=== PATIENT | male | born 1945 | race Hispanic/Latino ===

== ENCOUNTER 2017-09-01 06:05 | Emergency (ER) | payer MEDICARE, MEDICAID ==
[2017-09-01 06:42] LABS: #Basophils 0.1 thou/uL (0.0-0.2); #Eosinphils 0.2 thou/uL (0.0-0.7); #Lymphocytes 2.8 thou/uL (1.20-3.40); #Monocytes 0.4 thou/uL (0.11-0.59); #Neutrophils 4.2 thou/uL (1.40-6.50); %Basophils 0.9 % (0.0-1.0); %Eosinophils 2.1 % (0.0-10.0); %Lymphocytes 37.1 % (21.0-51.0); %Monocytes 4.8 % (0.0-10.0); Hematocrit 37.8 % (42.0-52.0); Mean Platelet Volume 6.5 fL (7.4-10.4); Red Blood Cell (RBC) Count 4.03 mill/uL (4.70-6.10); White Blood Cell (WBC) Count 7.6 thou/uL (4.8-10.8)
[2017-09-01 07:09] LABS: ALT (SGPT) 31 U/L (8-55); AST (SGOT) 25 U/L (5-34); Alkaline Phosphatase 128 U/L (40-150); Anion Gap 11 mmol/L (10-20); BUN (Urea Nitrogen) 32 mg/dL (8.4-25.7); Bilirubin, Total 0.3 mg/dL (0.2-1.2); Calc. Creatinine Clearance 0 mL/min (70-130); Calcium 8.4 mg/dL (7.8-10.44); Carbon Dioxide 24 mmol/L (23-31); Chloride 104 mmol/L (98-107); Estimated GFR-MDRD 67; Globulin 3.7 g/dL (2.4-3.5); Protein, Total 7.7 g/dL (5.8-8.1)
[2017-09-01 07:10] LABS: Troponin I Less than 0.010 ng/mL (< 0.028)
--- NOTE | 2017-09-01 08:00 | RAD ---
PORTABLE CHEST 1 VIEW: DATE: 09/01/17. TIME: 6:05 a.m. HISTORY: Fall, right shoulder pain, dizziness. FINDINGS: Comparison is made with the exam of 04/10/14. Changes of median sternotomy and large hiatal hernia a re again seen. The lungs are well expanded with chronic changes. No lobar consolidation, pneumotho rax, or pleural effusions are seen. There are changes of vertebroplasty in the upper lumbar spine. IMPRESSION: No acute process. POS: [facility]
--- NOTE | 2017-09-01 08:08 | CT ---
HEAD CT WITHOUT CONTRAST: Date: 09-01-17 Comparison: 04-12-16 History: Fall, pain, head trauma with right occipital hematoma. Technique: Serial axial CT imaging at 5 mm intervals from vertex through skull base without contrast. FINDINGS: There is mild diffuse cerebral volume loss with associated prominence of the CSF containing spaces. There is no intracranial hemorrhage, midline shift, or mass effect. There is a focal area of scalp swelling in the parietooccipital region on the right. No associated ca lvarial fracture. Imaged paranasal sinuses and mastoid air cells are unremarkable. IMPRESSION: Small focal area of scalp swelling in the right occipital region. No associated intracranial hemorrha ge or calvarial fracture noted. POS: [facility]
--- NOTE | 2017-09-01 08:12 | CT ---
CERVICAL SPINE CT WITHOUT CONTRAST: Date: 09-01-17 Comparison: 02-26-12 History: Fall, trauma, pain. Technique: Serial axial CT imaging at 2.5 mm intervals obtained from skull base through lung apices. Coronal and sagittal reformatted imaging obtained. FINDINGS: The C1 ring is intact. The occipital condyles, C1-2 articulation, dense, atlantoaxial interspace, and cervicothoracic juncti on demonstrates no acute findings. There is extensive bilateral laminectomy change involving the C3 through C7 vertebral bodies. There is no significant anterolisthesis or retrolisthesis noted within the cervical spine. No prevert ebral soft tissue swelling noted. Disc space narrowing with degenerative endplate change and anterior osteophyte formation noted from t he C3-4 level through the C6-7 level. There is no displaced fracture or evidence of dislocation seen. Increased linear interstitial densiti es are noted in bilateral lung apices. There is a tiny nodule in the right lung apex, unchanged since the 2012 exam. Incompletely imaged midline sternotomy wires noted. There is atherosclerotic calcific ation involving the distal CCA/proximal ICA on the right. There are post-operative clips within the n alanis on the left. There is prominent facet and uncal vertebral osteophyte formation, left greater than right from C3-4 through C6-7. IMPRESSION: Multilevel post-operative and degenerative change as described above. No acute osseous abnormality. POS: [facility]
--- NOTE | 2017-09-01 08:13 | RAD ---
THREE VIEWS RIGHT SHOULDER: Date: 09-01-17 Comparison: None. History: Fall, trauma, pain. FINDINGS: There are midline sternotomy wires present. There is no widening of the AC or CC interspace. No displ aced fracture or dislocation seen. IMPRESSION: No acute osseous abnormality. POS: [facility]
[2017-09-01] MEDS ORDERED: Albuterol Sulfate 2.5 mg/3 ml Neb ONE (08:22)
[2017-09-01] MEDS ORDERED: Ketorolac Tromethamine 30 MG/ML VIAL ONE (08:32)
== END 2017-09-01 09:31 | disposition home or self-care (01) ==
LOC: ERS 06:05
DX: S00.03XA Contusion of scalp, initial encounter (principal); M25.511 Pain in right shoulder; M54.2 Cervicalgia; I10 Essential (primary) hypertension; J44.9 Chronic obstructive pulmonary disease, unspecified; I25.2 Old myocardial infarction; F32.9 Major depressive disorder, single episode, unspecified; F17.210 Nicotine dependence, cigarettes, uncomplicated; W18.30XA Fall on same level, unspecified, initial encounter
CPT/HCPCS: 36415; 70450; 71010; 72125; 80053; 82553; 84484; 85025; 93005; 94640; 96374; 99406; J1885; J7611

== ENCOUNTER 2017-10-15 08:27 | Outpatient (CLI) | payer MEDICARE, MEDICAID | END 2017-10-15 08:28 | disposition home or self-care (01) | LOC: BICRAD 08:27 | PROVIDERS: ATTEND Specialist | DX: M47.812 Spondylosis without myelopathy or radiculopathy, cervical region (principal); M50.30 Other cervical disc degeneration, unspecified cervical region; I77.89 Other specified disorders of arteries and arterioles | CPT/HCPCS: 72050 ==

== ENCOUNTER 2017-12-03 02:31 | Inpatient (IN) | payer MEDICARE, MEDICAID ==
[2017-12-03] MEDS ORDERED: Cefepime 2 GM/10 ML SYR ONE (03:07)
[2017-12-03 03:09] LABS: #Lymphocytes 1.9 thou/uL (1.20-3.40); #Monocytes 0.1 thou/uL (0.11-0.59); #Neutrophils 6.4 thou/uL (1.40-6.50); %Basophils 0.3 % (0.0-1.0); %Eosinophils 0.3 % (0.0-10.0); %Lymphocytes 22.7 % (21.0-51.0); %Monocytes 0.9 % (0.0-10.0); %Neutrophils 75.6 % (42.0-75.0); Hemoglobin 11.7 g/dL (14.0-18.0); Mean Corpuscular HGB CONC 33.4 g/dL (32.0-36.0); Mean Corpuscular Hemoglobin 32.8 pg (27.0-31.0); Mean Corpuscular Volume 98.2 fl (80.0-94.0); Mean Platelet Volume 7.3 fL (7.4-10.4); Platelet Count 164 thou/uL (130-400); RBC Distribution Width 14.3 % (11.5-14.5); Red Blood Cell (RBC) Count 3.56 mill/uL (4.70-6.10); White Blood Cell (WBC) Count 8.5 thou/uL (4.8-10.8)
[2017-12-03 03:33] LABS: ALT (SGPT) 26 U/L (8-55); AST (SGOT) 33 U/L (5-34); Albumin 3.7 g/dL (3.4-4.8); Alkaline Phosphatase 127 U/L (40-150); Anion Gap 15 mmol/L (10-20); BUN (Urea Nitrogen) 25 mg/dL (8.4-25.7); Bilirubin, Total 1.5 mg/dL (0.2-1.2); Calc. Creatinine Clearance 0 mL/min (70-130); Calcium 8.9 mg/dL (7.8-10.44); Carbon Dioxide 19 mmol/L (23-31); Chloride 103 mmol/L (98-107); Estimated GFR-MDRD 59; Globulin 3.6 g/dL (2.4-3.5); Glucose 186 mg/dL (80-115); Protein, Total 7.3 g/dL (5.8-8.1); Sodium 133 mmol/L (136-145)
[2017-12-03 03:53] LABS: Bilirubin Negative (Negative); Blood, Urine Moderate (Negative); Clarity TURBID (Clear); Glucose, Urine (Dipstick) Negative (Negative); Leukocyte Large (Negative); Nitrite Positive (Negative); Protein, Urine (Dipstick) 100 mg/dL (Neg-Trace); Specific Gravity, Urine 1.017 (1.002-1.036)
[2017-12-03 03:56] LABS: Bacteria/HPF 4+ HPF (None Seen); Hyaline Casts/LPF 0-3 HYALINE CAST LPF (0-3 Hyaline); Squamous Epithelial None Seen HPF (0-3); Yeast-AUWi Flag 22.7 (0-25.0)
[2017-12-03] MEDS ORDERED: Vancomycin HCl 1.5 GM in Sodium Chloride 0.9% 250 ML 300 ML IVPB SCH (04:00)
[2017-12-03 04:02] LABS: Actual Bicarbonate (HCO3a) 21.2 mEq/L (22-26); Base Excess (BEa) -2.6 mEq/L (0 (+/-) 2.5); CO2 Tension 33.3 mmHg (35.0-45.0); Hemoglobin (Hb) 10.8 g/dL (14.0-18.0); O2 Tension (PaO2) 115.8 mmHg (80.0-100.0); pH, Arterial 7.42 (7.35-7.45)
[2017-12-03 04:03] LABS: Analyzer IN Cardio ER; Calcium, Ionized 1.1 mmol/L (1.12-1.30); Puncture Site RRA
[2017-12-03 04:04] LABS: ALV-art Gradient 70.735 (0-20)
[2017-12-03 04:09] LABS: Legionella Urinary Ag Negative (Negative); Strep pneumo Urine Ag NEGATIVE (NEGATIVE)
[2017-12-03 04:18] LABS: CKMB 0.4 ng/mL (0-6.6); Troponin I Less than 0.010 ng/mL (< 0.028)
[2017-12-03 06:35] VITALS: BMI 22.6
[2017-12-03] MEDS ORDERED: Ondansetron HCl/PF 4 MG/2 ML Vial IVP PRN (06:45)
[2017-12-03] MEDS ORDERED: Acetaminophen 325 MG TAB PO PRN (06:45)
[2017-12-03] MEDS ORDERED: Ondansetron ODT 4 MG TAB SL PRN (06:45)
[2017-12-03] MEDS ORDERED: Sodium Chloride 0.9% 1,000 ML IV SCH ×2 (06:45→07:00)
[2017-12-03] MEDS ORDERED: HYDROcodone/Acetaminophen 5/325 mg Tablet PO PRN ×2 (06:45)
[2017-12-03 07:19] LABS: Lactic Acid 4.2 mmol/L (0.5-2.2)
--- NOTE | 2017-12-03 07:56 | RAD ---
PORTABLE CHEST 1 VIEW: Date: 12/03/17 Time: 0309 hours HISTORY: Shortness of breath. FINDINGS/IMPRESSION: Comparison made with exam dated 09/01/17. Large hiatal hernia and changes of median sternotomy are again seen. The heart size is stable. Chroni c changes are seen in the lung buitrago bilaterally with suggestion of superimposed mild pulmonary vasc ular congestion. No lobar consolidation, pneumothoraces, or large effusions are seen. POS: [facility]
[2017-12-03] MEDS ORDERED: Piperacillin/Tazobactam 3.375 GM in Sodium Chloride 0.9% 100 ML IVPB SCH (08:00)
[2017-12-03] MEDS ORDERED: Sodium Chloride 0.9% 500 ML IV SCH (08:15)
[2017-12-03] MEDS ORDERED: Cefepime 2 GM in Sodium Chloride 0.9% 100 ML IVPB SCH ×2 (09:00→15:30)
[2017-12-03] MEDS: Sodium Chloride 0.9% 1,000 ML IV SCH ×3 (09:06→17:37)
[2017-12-03] MEDS: Enoxaparin Sodium 30 MG/0.3 ML SYRINGE SC SCH (09:36)
[2017-12-03 09:48] LABS: Troponin I 0.018 ng/mL (< 0.028)
[2017-12-03] MEDS ORDERED: Cefepime 1 GM, Admixture Fee 1 EACH in Sterile Water 10 ML SLOW IVP SCH (10:00)
--- NOTE | 2017-12-03 10:53 | HP-2 ---
CODE STATUS: FULL. PRIMARY CARE PHYSICIAN: Dr. Raúl Barrera ATTENDING: Dr. Aliyah Boles RESIDENT: Dr. Lesa Gore CHIEF COMPLAINT: Shortness of breath. HISTORY OF PRESENT ILLNESS: This is a 72-year-old male with past medical history of pulmonary fibrosis, coronary artery disease status post CABG, current every day smoker who arrived by EMS with a chief complaint of dyspnea. The patient states that the dyspnea has been progressively worsening and associated with weakness. Yesterday he did start to experience some chills. He denies any rash, nausea, vomiting, diarrhea. He does endorse pain with urination and suprapubic tenderness. The patient does state he feels more weak today with worsening respiratory symptoms. The patient denied any chest pain or lower extremity swelling. In the Emergency Department, he was found to be tachycardic and tachypneic. He was given 2 liter normal saline bolus as well as cefepime and vancomycin. PAST MEDICAL HISTORY: 1. Coronary artery disease, status post 5-vessel CABG in 2000. 2. Benign prostatic hypertrophy. 3. Pulmonary fibrosis. 4. Chronic diastolic heart failure. 5. Tobacco dependence. 6. Essential hypertension. 7. Hyperlipidemia. 8. Chronic pain syndrome. 9. Depression. 10. Esophageal hiatal hernia. PAST SURGICAL HISTORY: 1. Five-vessel CABG in 2000. 2. Cholecystectomy. ALLERGIES: No known drug allergies. MEDICATIONS: 1. Amitriptyline 50 mg oral daily. 2. Albuterol 2 inhalations by mouth every 8 hours as needed. 3. Symbicort 80/4.5 mcg inhalation aerosol 1 inhalation by mouth twice daily. 4. Atorvastatin calcium 80 mg oral daily. 5. Aspirin low dose. 6. Hydroxyzine 50 mg oral at bedtime. 7. Metoprolol succinate ER 25 mg oral tablet extended release, take half tablet by mouth daily. 8. Tamsulosin 0.4 mg oral daily. 9. Nitrostat 0.4 mg sublingual tablet every 5 minutes as needed for chest pain. 10. Albuterol sulfate 0.083 inhalation nebulized inhalation solution. 11. Acetaminophen with codeine #3 300-30 mg q.4-6h. as needed. 12. Tizanidine 4 mg oral tablet every 8 hours as needed for muscle spasm. 13. Tramadol 50 mg oral tablet every 6 hours as needed. 14. Lexapro 20 mg oral take 2 tablets by mouth daily. FAMILY HISTORY: Noncontributory. SOCIAL HISTORY: The patient does smoke a pack per day every 3 days. He has been doing this for over 50 years. He denies any alcohol or drug use. REVIEW OF SYSTEMS: A 12 point review of systems was performed. All were negative except as listed in the HPI and as indicated below. The patient did also endorse a sore throat. PHYSICAL EXAMINATION: VITAL SIGNS: Blood pressure 126/59, pulse 122, respiratory rate 28, T-max 98.1 , pulse ox 99% on 2 liters. Current weight 62 kilograms. GENERAL: The patient is alert and oriented x3, no acute distress. Well- developed, not well-nourished, appropriately interactive. He did appear malnourished. EYES: Pupils equally round, reactive to light and accommodation. Extraocular muscles intact. ENT: Nasal mucosa within normal limits. NECK: Supple. CARDIOVASCULAR: Regular rate and rhythm. No murmurs, although exam was difficult due to distant heart sounds. Radial and pedal pulses 2+. RESPIRATORY: Normal effort, no retractions. The patient did have crackles diffusely throughout with some high pitched expiratory wheezing, worse on the left. SKIN: Warm and dry. No cyanosis or lesions. ABDOMEN: Soft, tender to palpation diffusely, but worse with palpation in the suprapubic region. Bowel sounds are positive in all 4 quadrants. There are no masses or distention. EXTREMITIES: No clubbing, cyanosis or edema. MUSCULOSKELETAL: Structure within normal limits. NEUROLOGIC: No focal deficits. GCS 15. PSYCHIATRIC: Appropriate. LABORATORY DATA: 1. CBC reveals a white blood cell count 8.5, hemoglobin 11.2, hematocrit 35.0, platelets 154. 2. CMP reveals sodium 133, potassium 4.0, chloride 103, bicarbonate 19, BUN 25, creatinine 1.20, glucose 186, calcium 8.9, total protein 7.3, albumin 3.7, total bilirubin 1.5, alkaline phosphatase 127, AST 33, ALT 26. 3. CK-MB 0.4, troponin less than 0.010. 4. Lactic acid 4. 5. BNP 35. 6. ABG; 7.4 pH, CO2 of 33.3 and an O2 of 115.8. 7. Urine legionella pneumobilia antigen negative. 8. Urine strep pneumo antigen negative. 9. Influenza negative. IMAGING: Chest x-ray shows chronic pulmonary changes. There is a large hiatal hernia and changes of the median sternotomy are seen. No pneumothoraces or large effusions seen. ASSESSMENT AND PLAN: This is a 72-year-old male who presented with shortness of breath and was found to be tachycardic and tachypneic. 1. Sepsis secondary to urinary tract infection. The patient was admitted to telemetry. The patient was tachycardic and tachypneic on presentation. He did receive 2 liters of normal saline in the emergency department. His lactic acid has increased from 4 to 4.2. We will continue the patient on IV fluids at 130 mL per hour to account for kidney changes and hydration status. The patient was started on vancomycin and cefepime in the emergency department. We will continue cefepime at this time. Place patient on strict I's and O's and we will repeat lactic acid. 2. Respiratory distress secondary to pulmonary fibrosis. The patient never became hypoxic; however, he was placed on a 2 liter nasal cannula for comfort. He does not wear oxygen at home, but does have it available to him should he need it. This could have been exacerbated by sepsis or recent URI. We will continue to monitor and consult Dr. iCntron if needed to assist with management should pulmonary signs and symptoms worsen. 3. Elevated troponin. This is likely demand ischemia. We will continue to trend. 4. Benign prostatic hypertrophy. Continue home medications. Strict I's and O' s. Consider prostate exam. 5. Other chronic conditions, continue home medications. DISPOSITION AND LENGTH OF HOSPITAL STAY: 2 days. Symptomatic medication will be provided. History and physical exam as well as management discussed with Dr. Aliyah Boles. [facility]
[2017-12-03] MEDS ORDERED: Albuterol Sulfate 2.5 mg/3 ml Neb NEB PRN (11:45)
[2017-12-03] MEDS: Acetaminophen/Codeine 30-300mg Tablet PO SCH ×2 (14:57→21:47)
[2017-12-03] MEDS: Cefepime 2 GM, Syringe 2.5 ML in Sterile Water 10 ML SLOW IVP SCH (15:08)
[2017-12-03 15:10] LABS: Lactic Acid 1.9 mmol/L (0.5-2.2)
[2017-12-03] MEDS ORDERED: Vancomycin HCl 1 GM in Premix Bag 1 BAG IVPB SCH (16:00)
[2017-12-03] MEDS: traMADol HCl 50 MG TAB PO PRN (21:48)
[2017-12-03] MEDS: Amitriptyline HCl 25 MG TAB PO SCH (21:48)
[2017-12-04] MEDS: Cefepime 2 GM, Syringe 2.5 ML in Sterile Water 10 ML SLOW IVP SCH ×2 (03:36→14:21)
[2017-12-04 04:58] LABS: #Lymphocytes 0.8 thou/uL (1.20-3.40); #Monocytes 0.5 thou/uL (0.11-0.59); #Neutrophils 8.2 thou/uL (1.40-6.50); %Basophils 0.1 % (0.0-1.0); %Eosinophils 0.3 % (0.0-10.0); %Lymphocytes 8.3 % (21.0-51.0); %Monocytes 5.2 % (0.0-10.0); %Neutrophils 86.1 % (42.0-75.0); Hemoglobin 10.4 g/dL (14.0-18.0); Mean Corpuscular HGB CONC 33.4 g/dL (32.0-36.0); Mean Corpuscular Hemoglobin 33.1 pg (27.0-31.0); Mean Corpuscular Volume 99.1 fl (80.0-94.0); Mean Platelet Volume 7.5 fL (7.4-10.4); Platelet Count 145 thou/uL (130-400); RBC Distribution Width 14.3 % (11.5-14.5); Red Blood Cell (RBC) Count 3.13 mill/uL (4.70-6.10); White Blood Cell (WBC) Count 9.5 thou/uL (4.8-10.8)
[2017-12-04 05:13] LABS: Anion Gap 10 mmol/L (10-20); BUN (Urea Nitrogen) 24 mg/dL (8.4-25.7); Calc. Creatinine Clearance 81 mL/min (70-130); Carbon Dioxide 19 mmol/L (23-31); Chloride 115 mmol/L (98-107); Estimated GFR-MDRD Greater than 90; Glucose 120 mg/dL (80-115); Sodium 140 mmol/L (136-145)
[2017-12-04] MEDS: Acetaminophen/Codeine 30-300mg Tablet PO SCH ×3 (06:04→21:53)
[2017-12-04] MEDS: traMADol HCl 50 MG TAB PO PRN ×2 (06:05→18:08)
--- NOTE | 2017-12-04 06:14 | PDOC.FM ---
- Subjective Subjective: No acute events overnight. Denies complaints this am. Not short of breath. Denies pain with urination. - Objective MAR Reviewed: Yes Vital Signs & Weight: Vital Signs (12 hours) Temp Pulse Resp BP Pulse Ox 12/04/17 04:10 98 12/04/17 03:10 97.6 F 83 20 139/65 98 12/04/17 00:28 96 12/04/17 00:00 96.6 F L 85 20 155/69 H 96 12/03/17 22:10 97 16 76 L 12/03/17 19:35 97.6 F 86 16 132/60 95 Weight Admit Weight 61.689 kg Weight 62.46 kg Result Diagrams: 12/04/17 03:58 12/04/17 03:58 <Justien Whitmore - Last Filed: 12/04/17 07:47> - Objective Vital Signs & Weight: Vital Signs (12 hours) Temp Pulse Resp BP Pulse Ox 12/04/17 08:12 96 12/04/17 08:09 85 16 12/04/17 07:46 97.8 F 87 20 96 12/04/17 07:31 97.8 F 87 20 133/60 96 12/04/17 04:10 98 12/04/17 03:10 97.6 F 83 20 139/65 98 12/04/17 00:28 96 12/04/17 00:00 96.6 F L 85 20 155/69 H 96 Weight Admit Weight 136 lb Weight 137 lb 11.2 oz I&O: 12/03/17 12/04/17 12/05/17 06:59 06:59 06:59 Intake Total 360 Output Total 400 Balance -40 Result Diagrams: 12/04/17 03:58 12/04/17 03:58 <Uriel Coleman - Last Filed: 12/04/17 10:22> Phys Exam - Physical Examination Constitutional: NAD Respiratory: clear to auscultation bilateral wheezing bilaterally, expiratory; crackles bilaterally Cardiovascular: RRR, no significant murmur Gastrointestinal: soft, no distention Musculoskeletal: pulses present Psychiatric: normal affect, A&O x 3 <Justine Whitmore - Last Filed: 12/04/17 07:47> Dx/Plan (1) Sepsis due to urinary tract infection Code(s): A41.9 - SEPSIS, UNSPECIFIED ORGANISM; N39.0 - URINARY TRACT INFECTION, SITE NOT SPECIFIED Status: Acute (2) Pulmonary fibrosis Code(s): J84.10 - PULMONARY FIBROSIS, UNSPECIFIED Status: Acute (3) Elevated troponin Code(s): R74.8 - ABNORMAL LEVELS OF OTHER SERUM ENZYMES Status: Acute (4) BPH (benign prostatic hyperplasia) Code(s): N40.0 - BENIGN PROSTATIC HYPERPLASIA WITHOUT LOWER URINRY TRACT SYMP Status: Acute (5) Lactic acidosis Code(s): E87.2 - ACIDOSIS Status: Acute - Plan Plan: 72 yo m with pmhx of pulm fibrosis and CAD s/p CABG who presented with dysuria, fever, and chills admitted for sepsis 2/2 UTI. 1.)Sepsis 2/2 UTI-pt is on cefepime. Blood and urine cultures and sensitivities are pending at this time. 2.)Pulm fibrosis-pt has been experiencing some respiratory distress 2/2 pulm fibrosis. We will provide albuterol nebs prn and dulera daily. 3.) Elevtated troponins-likely d/t demand ischemia. 4.)BPH-controlled on tamsulosin. . <Justine Whitmore - Last Filed: 12/04/17 07:47> Attending Addendum - Attending Addendum I personally evaluated the patient and discussed the management with Dr. Whitmore [] I agree with the History, Examination, Assessment and Plan documented above with any addition or exceptions noted below. 72 yo male admitted for sepsis 2/2 UTI. VSS. Improving. Continue Cefepime. Blood and urine cultures pending at this time. <Uriel Coleman - Last Filed: 12/04/17 10:22>
[2017-12-04] MEDS: Tamsulosin HCl 0.4 MG CAP PO SCH (07:37)
[2017-12-04] MEDS: Enoxaparin Sodium 30 MG/0.3 ML SYRINGE SC SCH (07:37)
[2017-12-04] MEDS: Aspirin 325 MG TAB PO SCH (07:37)
[2017-12-04] MEDS: Metoprolol Tartrate 25 MG TAB PO SCH (07:37)
[2017-12-04] MEDS: Mometasone/Formoterol 120 PUFF INHALER INH SCH (08:09)
[2017-12-04] MEDS: Amitriptyline HCl 25 MG TAB PO SCH (21:53)
[2017-12-05] MEDS: traMADol HCl 50 MG TAB PO PRN ×2 (01:29→20:24)
[2017-12-05] MEDS: Cefepime 2 GM, Syringe 2.5 ML in Sterile Water 10 ML SLOW IVP SCH ×3 (03:42→23:05)
[2017-12-05] MEDS ORDERED: Ketorolac Tromethamine 30 MG/ML VIAL IVP SCH (04:45)
[2017-12-05] MEDS: Acetaminophen/Codeine 30-300mg Tablet PO SCH ×3 (06:53→23:05)
[2017-12-05] MEDS: Mometasone/Formoterol 120 PUFF INHALER INH SCH (07:06)
--- NOTE | 2017-12-05 07:07 | PDOC.FM ---
- Subjective Subjective: No acute events overnight. No complaints this am. - Objective MAR Reviewed: Yes Vital Signs & Weight: Vital Signs (12 hours) Temp Pulse Resp BP Pulse Ox 12/05/17 04:00 98.1 F 86 18 128/71 99 12/05/17 03:36 100 12/04/17 20:00 98.7 F 90 16 151/69 H 99 Weight Admit Weight 61.689 kg Weight 61.405 kg I&O: 12/04/17 12/05/17 12/06/17 06:59 06:59 06:59 Intake Total 360 850 Output Total 400 1195 Balance -40 -345 Result Diagrams: 12/05/17 07:26 12/05/17 07:26 <Justine Whitmore - Last Filed: 12/05/17 09:35> - Objective Vital Signs & Weight: Vital Signs (12 hours) Temp Pulse Resp BP Pulse Ox 12/05/17 08:00 98.4 F 89 20 97 12/05/17 07:55 98.4 F 89 20 118/64 97 12/05/17 04:00 98.1 F 86 18 128/71 99 12/05/17 03:36 100 Weight Admit Weight 136 lb Weight 135 lb 6 oz I&O: 12/04/17 12/05/17 12/06/17 06:59 06:59 06:59 Intake Total 360 850 Output Total 400 1195 Balance -40 -345 Result Diagrams: 12/05/17 07:26 12/05/17 07:26 <Uriel Coleman - Last Filed: 12/05/17 09:58> Phys Exam - Physical Examination Constitutional: NAD HEENT: PERRLA, moist MMs Respiratory: no wheezing, no rales, clear to auscultation bilateral Cardiovascular: RRR, gallop (s3) possible diastolic murmur Gastrointestinal: soft, non-tender, no distention Musculoskeletal: no edema, pulses present Psychiatric: normal affect, A&O x 3 Skin: no rash, cap refill <2 seconds <Justine Whitmore - Last Filed: 12/05/17 09:35> Dx/Plan (1) E coli bacteremia Code(s): R78.81 - BACTEREMIA Status: Acute (2) Sepsis due to urinary tract infection Code(s): A41.9 - SEPSIS, UNSPECIFIED ORGANISM; N39.0 - URINARY TRACT INFECTION, SITE NOT SPECIFIED Status: Acute (3) Pulmonary fibrosis Code(s): J84.10 - PULMONARY FIBROSIS, UNSPECIFIED Status: Acute (4) Elevated troponin Code(s): R74.8 - ABNORMAL LEVELS OF OTHER SERUM ENZYMES Status: Acute (5) BPH (benign prostatic hyperplasia) Code(s): N40.0 - BENIGN PROSTATIC HYPERPLASIA WITHOUT LOWER URINRY TRACT SYMP Status: Acute (6) Lactic acidosis Code(s): E87.2 - ACIDOSIS Status: Acute - Plan Plan: 2 yo m with pmhx of pulm fibrosis and CAD s/p CABG who presented with dysuria, fever, and chills admitted for sepsis 2/2 UTI. E. coli Bacteremia-pt is on cefepime. Sensitivites pending. TTE ordered. Sepsis 2/2 UTI-pt is on cefepime. Blood and urine sensitivities are pending at this time. Pulm fibrosis-pt has been experiencing some respiratory distress 2/2 pulm fibrosis. We will provide albuterol nebs prn and dulera daily. Elevtated troponins-likely d/t demand ischemia. BPH-controlled on tamsulosin. <Justine Whitmore - Last Filed: 12/05/17 09:35> Attending Addendum - Attending Addendum I personally evaluated the patient and discussed the management with Dr. Whitmore I agree with the History, Examination, Assessment and Plan documented above. Pt found to have E. coli bacteremia today. Currently being treated with cefepime IV. Sensitivities pending. Ordered an echo to further assess. VSS <Uriel Coleman - Last Filed: 12/05/17 09:58>
[2017-12-05 07:39] LABS: #Lymphocytes 0.9 thou/uL (1.20-3.40); #Monocytes 0.3 thou/uL (0.11-0.59); #Neutrophils 3.1 thou/uL (1.40-6.50); %Basophils 0.4 % (0.0-1.0); %Eosinophils 1.1 % (0.0-10.0); %Lymphocytes 19.6 % (21.0-51.0); %Monocytes 6.2 % (0.0-10.0); %Neutrophils 72.6 % (42.0-75.0); Mean Corpuscular HGB CONC 34.6 g/dL (32.0-36.0); Mean Corpuscular Hemoglobin 33.6 pg (27.0-31.0); Mean Corpuscular Volume 97.1 fl (80.0-94.0); Mean Platelet Volume 6.6 fL (7.4-10.4); Platelet Count 120 thou/uL (130-400); RBC Distribution Width 14.1 % (11.5-14.5); Red Blood Cell (RBC) Count 2.98 mill/uL (4.70-6.10); White Blood Cell (WBC) Count 4.3 thou/uL (4.8-10.8)
[2017-12-05] MEDS: Enoxaparin Sodium 30 MG/0.3 ML SYRINGE SC SCH (07:52)
[2017-12-05] MEDS: Aspirin 325 MG TAB PO SCH (07:53)
[2017-12-05] MEDS: Tamsulosin HCl 0.4 MG CAP PO SCH (07:53)
[2017-12-05] MEDS: Metoprolol Tartrate 25 MG TAB PO SCH (07:54)
[2017-12-05 07:58] LABS: Anion Gap 8 mmol/L (10-20); BUN (Urea Nitrogen) 21 mg/dL (8.4-25.7); Calc. Creatinine Clearance 82 mL/min (70-130); Carbon Dioxide 24 mmol/L (23-31); Chloride 106 mmol/L (98-107); Estimated GFR-MDRD Greater than 90; Glucose 89 mg/dL (80-115); Potassium 3.7 mmol/L (3.5-5.1); Sodium 134 mmol/L (136-145)
[2017-12-05] MEDS: Amitriptyline HCl 25 MG TAB PO SCH (20:22)
[2017-12-06 06:00] LABS: #Eosinphils 0.1 thou/uL (0.0-0.7); #Lymphocytes 1.3 thou/uL (1.20-3.40); #Monocytes 0.4 thou/uL (0.11-0.59); #Neutrophils 2.2 thou/uL (1.40-6.50); %Basophils 0.5 % (0.0-1.0); %Eosinophils 2.5 % (0.0-10.0); %Lymphocytes 31.7 % (21.0-51.0); %Monocytes 9.2 % (0.0-10.0); %Neutrophils 56.1 % (42.0-75.0); Hemoglobin 10.9 g/dL (14.0-18.0); Mean Corpuscular HGB CONC 34.1 g/dL (32.0-36.0); Mean Platelet Volume 7.4 fL (7.4-10.4); Platelet Count 156 thou/uL (130-400); Red Blood Cell (RBC) Count 3.31 mill/uL (4.70-6.10)
[2017-12-06] MEDS: Acetaminophen/Codeine 30-300mg Tablet PO SCH ×2 (06:08→14:27)
[2017-12-06] MEDS: Cefepime 2 GM, Syringe 2.5 ML in Sterile Water 10 ML SLOW IVP SCH ×2 (06:08→14:28)
[2017-12-06 06:29] LABS: Anion Gap 10 mmol/L (10-20); BUN (Urea Nitrogen) 17 mg/dL (8.4-25.7); Calc. Creatinine Clearance 80 mL/min (70-130); Calcium 8.4 mg/dL (7.8-10.44); Carbon Dioxide 27 mmol/L (23-31); Chloride 105 mmol/L (98-107); Estimated GFR-MDRD Greater than 90; Glucose 94 mg/dL (80-115); Potassium 3.8 mmol/L (3.5-5.1); Sodium 138 mmol/L (136-145)
--- NOTE | 2017-12-06 06:33 | PDOC.FM ---
- Subjective Subjective: Feeling very well this morning. No chest pain, cough, SOB or dysuria. He would like to go home when able. - Objective MAR Reviewed: Yes Vital Signs & Weight: Vital Signs (12 hours) Temp Pulse Resp BP Pulse Ox 12/05/17 20:00 98.3 F 86 22 H 137/74 96 12/05/17 19:48 98.1 F 86 18 95 Weight Admit Weight 61.689 kg Weight 61.405 kg I&O: 12/04/17 12/05/17 12/06/17 06:59 06:59 06:59 Intake Total 112 310 9736 Output Total 400 1195 1969 Balance -07 -345 -868 Result Diagrams: 12/06/17 04:29 12/06/17 04:29 <Sheeba Ram - Last Filed: 12/06/17 09:08> - Objective Vital Signs & Weight: Vital Signs (12 hours) Temp Pulse Resp BP Pulse Ox 12/06/17 08:00 98 F 104 H 24 H 123/71 97 Weight Admit Weight 61.689 kg Weight 61.405 kg I&O: 12/05/17 12/06/17 12/07/17 06:59 06:59 06:59 Intake Total 850 1102 Output Total 1195 1969 Balance -464 -058 Result Diagrams: 12/06/17 04:29 12/06/17 04:29 <Tej Austin - Last Filed: 12/06/17 11:30> Dx/Plan (1) BPH (benign prostatic hyperplasia) Code(s): N40.0 - BENIGN PROSTATIC HYPERPLASIA WITHOUT LOWER URINRY TRACT SYMP Status: Acute (2) E coli bacteremia Code(s): R78.81 - BACTEREMIA Status: Acute (3) Lactic acidosis Code(s): E87.2 - ACIDOSIS Status: Acute (4) Pulmonary fibrosis Code(s): J84.10 - PULMONARY FIBROSIS, UNSPECIFIED Status: Acute (5) Sepsis due to urinary tract infection Code(s): A41.9 - SEPSIS, UNSPECIFIED ORGANISM; N39.0 - URINARY TRACT INFECTION, SITE NOT SPECIFIED Status: Acute (6) Back pain Code(s): M54.9 - DORSALGIA, UNSPECIFIED Status: Acute (7) CAD (coronary artery disease) Code(s): I25.10 - ATHSCL HEART DISEASE OF [place] CORONARY ARTERY W/O ANG PCTRS Status: Acute (8) Tobacco abuse Code(s): Z72.0 - TOBACCO USE Status: Acute (9) Chronic low back pain Code(s): M54.5 - LOW BACK PAIN; G89.29 - OTHER CHRONIC PAIN Status: Chronic (10) Depression Code(s): F32.9 - MAJOR DEPRESSIVE DISORDER, SINGLE EPISODE, UNSPECIFIED Status : Chronic - Plan Plan: 72 yo M with pmhx of pulm fibrosis and CAD s/p CABG who presented with dysuria, fever, and chills admitted for sepsis 2/2 UTI. 1. E. coli Bacteremia - Continue IV cefepime - Kiser sensitive e-coli - TTE pending - Will discuss transition to PO abx if d/c today 2. Pulm fibrosis - Sypmtoms improved - Scattered expiratory wheezing - Albuterol nebs PRN and dulera daily (home meds) 4. Depression - Home medications 5. Elevated troponin - Downtrending - No chest pain - Likely 2/2 demand ischemia on admission 6. BPH - Continue tamsulosin 7. BRADLEY - Resolved 8. CAD - Continue ASA, metoprolol 9. HLD - Home medications 10. Tobacco abuse - Encouraged cessation - Nicotine replacement PRN 11. Chronic back pain - Home Tylenol #3 and tramadol 12. HTN - Home metoprolol PPX: Lovenox <Sheeba Ram - Last Filed: 12/06/17 09:08> Attending Addendum - Attending Addendum I personally evaluated the patient and discussed the management with Dr. Ram I agree with the History, Examination, Assessment and Plan documented above with any addition or exceptions noted below. convert PO Antibiotic d/c still pending echocardiogram report <Tej Austin - Last Filed: 12/06/17 11:30>
[2017-12-06] MEDS: Mometasone/Formoterol 120 PUFF INHALER INH SCH (07:00)
[2017-12-06] MEDS: Metoprolol Tartrate 25 MG TAB PO SCH (08:24)
[2017-12-06] MEDS: Tamsulosin HCl 0.4 MG CAP PO SCH (08:24)
[2017-12-06] MEDS: Aspirin 325 MG TAB PO SCH (08:24)
[2017-12-06] MEDS: Enoxaparin Sodium 30 MG/0.3 ML SYRINGE SC SCH (08:24)
[2017-12-06] MEDS ORDERED: tiZANidine HCl 4 MG TAB PO PRN (09:09)
[2017-12-06] MEDS ORDERED: PROVENTIL INHALER 6.7 G (200 INHALATIONS) INH PRN (09:09)
[2017-12-06] MEDS: traMADol HCl 50 MG TAB PO PRN ×2 (11:54→18:36)
[2017-12-06 13:21] VITALS: TEMP 97.8
[2017-12-06 18:43] VITALS: BP 115/71
[2017-12-07] MEDS ORDERED: Enoxaparin Sodium 40 MG/0.4 ML SYRINGE SC SCH (09:00)
--- NOTE | 2017-12-07 09:50 | DIS-2 ---
DATE OF ADMISSION: 12/03/2017 DATE OF DISCHARGE: 12/06/2017 RESIDENT: Sheeba Ram M.D. ADMITTING ATTENDING: Aliyah Boles M.D. DISCHARGE ATTENDING: Tej Austin M.D. CONSULTS: None. PROCEDURES: Chest x-ray (12/03/2017): Large hiatal hernia and changes of median sternotomy are again seen. The heart size is stable. Chronic changes are seen in the lungs bilaterally with suggestion of superimposed mild pulmonary vascular congestion. No lobar consolidation, pneumothoraces or large effusions are seen. PRIMARY DIAGNOSES: 1. Escherichia coli bacteremia secondary to urinary tract infection. 2. Pulmonary fibrosis. 3. Benign prostatic hypertrophy. 4. Lactic acidosis, resolved. 5. Sepsis secondary to urinary tract infection, resolved. 6. Chronic back pain. 7. Coronary artery disease, status post coronary artery bypass graft. 8. Tobacco abuse. 9. Depression. DISCHARGE MEDICATIONS: 1. Ampicillin 500 mg p.o. q.6 hours x10 days. 2. Albuterol 2 puffs inhaled q.4 hours p.r.n. 3. Amitriptyline 50 mg p.o. at bedtime. 4. Aspirin 325 mg p.o. daily. 5. Albuterol nebulizers 2.5 mg inhaled twice daily p.r.n. 6. Nitro 0.4 mg sublingual every 5 minutes p.r.n. chest pain. 7. Tamsulosin 0.4 mg p.o. daily. 8. Symbicort 80/4.5 one puff inhaled daily. 9. Acetaminophen with codeine 1 tab p.o. q.8 hours p.r.n. pain. 10. Metoprolol tartrate 25 mg p.o. daily. 11. Tramadol 50 mg p.o. q.6 hours p.r.n. pain. 12. Tizanidine 2 mg p.o. q.8 hours p.r.n. pain. HISTORY OF PRESENT ILLNESS AND HOSPITAL COURSE: Mr. Case presented on Wednesday morning with chief complaint of shortness of breath, weakness, and dysuria. He was found to be tachycardic and tachypneic, and upon meeting sepsis criteria, was admitted for fluid resuscitation and antibiotic administration. He was found to have E. coli in both his urine and both blood cultures. He was initially treated with cefepime, which the bacteria was sensitive to for 4 days. He is being discharged on p.o. ampicillin, which the bacteria was also sensitive to for an additional 10 days for a total of 2-week antibiotic course. At this time, he is completely asymptomatic and feeling well. He has been instructed to follow up with his PCP, Dr. Raúl Barrera, by the end of the week or sooner if any new symptoms or conditions arise. At this time, an echocardiogram is pending that was performed on Wednesday regarding the patient's bacteremia, though it is not available at time of discharge and the patient remains asymptomatic without any significant cardiac murmur at this time. We will follow up outpatient and make PCP, Dr. Barrera, as well as patient aware of results since they are available. DISPOSITION: Stable. DISCHARGE INSTRUCTIONS: 1. Location: Home. 2. Diet: Heart healthy. 3. Activity: As tolerated. 4. Followup: With PCP, Dr. Barrera, within 3 days. IVY
--- NOTE | 2018-01-01 12:06 | EKG ---
Test Reason : Blood Pressure : / mmHG Vent. Rate : 125 BPM Atrial Rate : 125 BPM P-R Int : 152 ms QRS Dur : 084 ms QT Int : 314 ms P-R-T Axes : 031 -10 115 degrees QTc Int : 453 ms Sinus tachycardia Left ventricular hypertrophy with repolarization abnormality Left axis deviation , new from 01-SEP-2017 Abnormal ECG Confirmed by EDDY BARTLETT, MAYRA Vazquez ([id number]), newspaper editor managing CAM ESCOTO ([id number]) on 01/01/2018 12:06:21 PM Referred By: Confirmed By:MAYRA KAM MD
== END 2017-12-06 20:00 | disposition home or self-care (01) | DRG 872 ==
LOC: ERS 02:31 → 2NO 04:30 → T4-B 12-04 14:33
PROVIDERS: ADMIT Family Medicine; ATTEND Family Medicine
DX: A41.51 Sepsis due to Escherichia coli [E. coli] (principal); E87.2 Acidosis; E46 Unspecified protein-calorie malnutrition; R06.03 Acute respiratory distress; E87.1 Hypo-osmolality and hyponatremia; I50.32 Chronic diastolic (congestive) heart failure; N39.0 Urinary tract infection, site not specified; I24.8 Other forms of acute ischemic heart disease; I11.0 Hypertensive heart disease with heart failure; J84.10 Pulmonary fibrosis, unspecified; N40.0 Benign prostatic hyperplasia without lower urinary tract symptoms; I25.10 Atherosclerotic heart disease of native coronary artery without angina pectoris; Z95.1 Presence of aortocoronary bypass graft; F17.210 Nicotine dependence, cigarettes, uncomplicated; F32.9 Major depressive disorder, single episode, unspecified; E80.6 Other disorders of bilirubin metabolism; K44.9 Diaphragmatic hernia without obstruction or gangrene; M50.30 Other cervical disc degeneration, unspecified cervical region; E78.00 Pure hypercholesterolemia, unspecified; Z79.891 Long term (current) use of opiate analgesic; G89.4 Chronic pain syndrome; Z68.22 Body mass index [BMI] 22.0-22.9, adult
CPT/HCPCS: 36415; 71045; 80048; 80053; 81003; 81015; 82553; 82805; 83605; 83880; 84484; 85025; 87040; 87077; 87086; 87149; 87186; 87804; 87899; 93005; 93306; 94640; 94660; 94664; 96361; 96365; 96366; 96375; A4216; G8978-GP-CK; G8979-GP-CK; G8980-GP-CK; G8987-GO-CI; G8988-GO-CI; G8989-GO-CI; J0692; J1650; J1885; J2543; J3370; J7050; J7611

== ENCOUNTER 2017-12-26 14:39 | Emergency (ER) | payer MEDICARE, MEDICAID ==
[2017-12-26 16:01] LABS: #Basophils 0.1 thou/uL (0.0-0.2); #Eosinphils 0.1 thou/uL (0.0-0.7); #Lymphocytes 1.6 thou/uL (1.20-3.40); #Monocytes 0.4 thou/uL (0.11-0.59); #Neutrophils 4.1 thou/uL (1.40-6.50); %Basophils 1.2 % (0.0-1.0); %Eosinophils 1.2 % (0.0-10.0); %Lymphocytes 26.2 % (21.0-51.0); %Monocytes 5.9 % (0.0-10.0); %Neutrophils 65.5 % (42.0-75.0); Hemoglobin 13.6 g/dL (14.0-18.0); Mean Corpuscular HGB CONC 33.3 g/dL (32.0-36.0); Mean Corpuscular Hemoglobin 32.6 pg (27.0-31.0); Mean Corpuscular Volume 97.7 fl (80.0-94.0); Mean Platelet Volume 7.1 fL (7.4-10.4); Platelet Count 217 thou/uL (130-400); Red Blood Cell (RBC) Count 4.17 mill/uL (4.70-6.10); White Blood Cell (WBC) Count 6.3 thou/uL (4.8-10.8)
[2017-12-26 16:27] LABS: ALT (SGPT) 44 U/L (8-55); AST (SGOT) 35 U/L (5-34); Albumin 4.5 g/dL (3.4-4.8); Alkaline Phosphatase 118 U/L (40-150); Anion Gap 12 mmol/L (10-20); BUN (Urea Nitrogen) 22 mg/dL (8.4-25.7); Bilirubin, Total 0.4 mg/dL (0.2-1.2); CK (CPK) 53 U/L (30-200); Calc. Creatinine Clearance 0 mL/min (70-130); Calcium 9.5 mg/dL (7.8-10.44); Carbon Dioxide 25 mmol/L (23-31); Chloride 103 mmol/L (98-107); Estimated GFR-MDRD 68; Globulin 3.9 g/dL (2.4-3.5); Glucose 114 mg/dL (80-115); Lipase 8 U/L (8-78); Potassium 4.4 mmol/L (3.5-5.1); Protein, Total 8.4 g/dL (5.8-8.1); Sodium 136 mmol/L (136-145)
[2017-12-26 16:29] LABS: CKMB 0.9 ng/mL (0-6.6); Troponin I Less than 0.010 ng/mL (< 0.028)
--- NOTE | 2017-12-26 16:30 | RAD ---
PORTABLE CHEST Date: 12-26-17 Time: 4:12 p.m. History: Chest pain. FINDINGS: Comparison made with exam of 12-03-17. There are changes of median sternotomy. Large hiatal hernia is again seen. The lungs are well expande d with stable chronic changes. No focal areas of consolidation, pneumothoraces, sharan pleural edema o r pleural effusions are seen. IMPRESSION: No acute process. POS: [facility]
== END 2017-12-26 17:08 | disposition home or self-care (01) ==
LOC: ERS 14:39
DX: M54.2 Cervicalgia (principal); M79.1 Myalgia; I10 Essential (primary) hypertension; I25.2 Old myocardial infarction; J45.909 Unspecified asthma, uncomplicated; I25.10 Atherosclerotic heart disease of native coronary artery without angina pectoris; F32.9 Major depressive disorder, single episode, unspecified; F17.210 Nicotine dependence, cigarettes, uncomplicated; Z79.891 Long term (current) use of opiate analgesic; Z79.899 Other long term (current) drug therapy
CPT/HCPCS: 71045; 80053; 82553; 83690; 83880; 84484; 85025; 85652; 86140; 93005

== ENCOUNTER 2018-03-11 14:10 | Emergency (ER) | payer MEDICARE, MEDICAID ==
[2018-03-11 14:42] LABS: #Eosinphils 0.2 thou/uL (0.0-0.7); #Lymphocytes 2.3 thou/uL (1.20-3.40); #Monocytes 0.4 thou/uL (0.11-0.59); #Neutrophils 4.3 thou/uL (1.40-6.50); %Basophils 0.4 % (0.0-1.0); %Eosinophils 2.2 % (0.0-10.0); %Lymphocytes 32.1 % (21.0-51.0); %Monocytes 5.2 % (0.0-10.0); Hemoglobin 12.7 g/dL (14.0-18.0); Mean Corpuscular HGB CONC 33.8 g/dL (32.0-36.0); Mean Corpuscular Volume 94.8 fl (80.0-94.0); Mean Platelet Volume 7.1 fL (7.4-10.4); Platelet Count 187 thou/uL (130-400); RBC Distribution Width 13.4 % (11.5-14.5); Red Blood Cell (RBC) Count 3.97 mill/uL (4.70-6.10); White Blood Cell (WBC) Count 7.1 thou/uL (4.8-10.8)
[2018-03-11 15:02] LABS: ALT (SGPT) 13 U/L (8-55); AST (SGOT) 17 U/L (5-34); Alkaline Phosphatase 102 U/L (40-150); Anion Gap 12 mmol/L (10-20); BUN (Urea Nitrogen) 24 mg/dL (8.4-25.7); Bilirubin, Total 0.3 mg/dL (0.2-1.2); CK (CPK) 43 U/L (30-200); Calc. Creatinine Clearance 0 mL/min (70-130); Calcium 9.4 mg/dL (7.8-10.44); Carbon Dioxide 26 mmol/L (23-31); Chloride 103 mmol/L (98-107); Estimated GFR-MDRD 69; Globulin 3.9 g/dL (2.4-3.5); Glucose 104 mg/dL (83-110); Potassium 4.1 mmol/L (3.5-5.1); Protein, Total 7.9 g/dL (5.8-8.1); Sodium 137 mmol/L (136-145)
[2018-03-11 15:06] LABS: CKMB 1.1 ng/mL (0-6.6); Troponin I Less than 0.010 ng/mL (< 0.028)
--- NOTE | 2018-03-11 15:19 | RAD ---
CHEST 1 VIEW: HISTORY: Chest pain. COMPARISON: Chest radiograph 11/28/17. FINDINGS: There is a large sliding hiatal hernia. Mild blunting of the right lateral costophrenic sulcus. Lungs are hypoinflated. Multiple median sternotomy wires. Cardiac silhouette and mediastinal contou rs are similar. Chronic interstitial markings in the lung bases. IMPRESSION: Mild blunting of the right costophrenic sulcus may be sequelae of small effusion. POS: [facility]
--- NOTE | 2018-03-11 15:39 | CT ---
CT BRAIN WITHOUT CONTRAST: HISTORY: Numbness. Fall. Lightheadedness. COMPARISON: CT brain from 09/01/2017. FINDINGS: No acute hemorrhage or infarct. No midline shift or mass effect. Ventricular size and extraaxial CS F spaces are normal. The paranasal sinuses and mastoids are clear. The calvarium is intact. The orbits are unremarkable. The globes are normal. IMPRESSION: No acute intracranial abnormality. No significant change. POS: [facility]
--- NOTE | 2018-03-11 15:44 | CT ---
CT CERVICAL SPINE NONCONTRAST: HISTORY: Fall. Neck injury. COMPARISON: 09/01/2017 FINDINGS: Vertebral body height and alignment are maintained. There is disk space narrowing, osteophytosis, an d endplate sclerosis throughout the cervical spine. The cervicothoracic junction is intact. Posteri or elements are surgically absent at the C4, C5, and C6 levels. No acute fracture or dislocation. C alcification is apparent within the arterial structures. IMPRESSION: 1. Cervical spondylosis. 2. Postoperative changes. 3. No acute osseous abnormalities are demonstrated. 4. Atherosclerosis. POS: [facility]
== END 2018-03-11 17:35 | disposition home or self-care (01) ==
LOC: ERS 14:10
DX: R53.1 Weakness (principal); I10 Essential (primary) hypertension; J45.909 Unspecified asthma, uncomplicated; I25.10 Atherosclerotic heart disease of native coronary artery without angina pectoris; I25.2 Old myocardial infarction; F32.9 Major depressive disorder, single episode, unspecified; F17.210 Nicotine dependence, cigarettes, uncomplicated; Z79.891 Long term (current) use of opiate analgesic; Z79.899 Other long term (current) drug therapy
CPT/HCPCS: 70450; 71045; 72125; 80053; 82550; 82553; 84484; 85025; 93005; 94640; 94760; J7620

== ENCOUNTER 2018-03-22 15:38 | Outpatient (CLI) | payer MEDICARE, MEDICAID ==
[~2018-03-22 15:38] MED LIST: Gadobenate Dimeglumine 529 MG/1 ML (20ML VIAL) ONE
== END 2018-03-22 15:39 | disposition home or self-care (01) ==
LOC: BICMRI 15:38
PROVIDERS: ATTEND Family Medicine
DX: G45.9 Transient cerebral ischemic attack, unspecified (principal)
CPT/HCPCS: 70553; 82565; A9579

== ENCOUNTER → 2018-05-24 | Day surgery (SDC) | payer MEDICARE, MEDICAID ==
[2018-04-28 15:31] VITALS: BMI 22.6
--- NOTE | 2018-05-24 13:50 | MRI ---
PRE AND POST CONTRAST ENHANCED MRI IMAGES BRAIN: History: 73-year-old with history of TIAs. G45.9 Technique: Multiplanar, multisequence pre and post contrast enhanced MRI images of the brain demonstr ate some mild cortical atrophy. Some deep white matter ischemic changes are seen. No evidence of acut e intracranial masses, hemorrhages, strokes or contusions seen. The ventricles are of normal size. Normal flow voids seen in the major intracranial vessels. IMPRESSION: No evidence of acute intracranial pathology seen. POS: [facility]
== END ==
LOC: SDC/OP 10:16
PROVIDERS: ATTEND Family Medicine
DX: G45.9 Transient cerebral ischemic attack, unspecified (principal); J84.112 Idiopathic pulmonary fibrosis; N39.0 Urinary tract infection, site not specified; B96.20 Unspecified Escherichia coli [E. coli] as the cause of diseases classified elsewhere; Z86.73 Personal history of transient ischemic attack (TIA), and cerebral infarction without residual deficits; Z79.82 Long term (current) use of aspirin; Z79.899 Other long term (current) drug therapy; Z98.890 Other specified postprocedural states
CPT/HCPCS: 36415; 70553; 82565

== ENCOUNTER 2018-05-26 09:58 | Outpatient (CLI) | payer MEDICARE, MEDICAID ==
[2018-05-26] MEDS ORDERED: ISOVUE-370 76%-LOCM 1 ML ONE (15:19)
== END 2018-05-26 09:59 | disposition home or self-care (01) ==
LOC: BICCT 09:58
PROVIDERS: ATTEND Urology
DX: R31.0 Gross hematuria (principal); N20.2 Calculus of kidney with calculus of ureter; N21.0 Calculus in bladder; K44.9 Diaphragmatic hernia without obstruction or gangrene; I70.0 Atherosclerosis of aorta
CPT/HCPCS: 74178

== ENCOUNTER 2018-06-02 10:02 | Outpatient (CLI) | payer MEDICARE, MEDICAID ==
[2018-06-02] MEDS ORDERED: ISOVUE-370 76%-LOCM 1 ML ONE (12:49)
== END 2018-06-02 10:03 | disposition home or self-care (01) ==
LOC: BICCT 10:02
PROVIDERS: ATTEND Ophthalmology
DX: H34.211 Partial retinal artery occlusion, right eye (principal); I65.23 Occlusion and stenosis of bilateral carotid arteries; Z98.890 Other specified postprocedural states
CPT/HCPCS: 70498

== ENCOUNTER 2018-06-17 05:41 | Inpatient (IN) | payer MEDICARE, MEDICAID ==
[2018-06-17] MEDS ORDERED: Heparin 5,000 UNITS/ML VIAL ONE (06:28)
[2018-06-17] MEDS ORDERED: Protamine Sulfate 50 MG/5 ML VIAL ONE (06:28)
[2018-06-17] MEDS ORDERED: Midazolam HCl 2 mg/2 ml Vial ONE (06:29)
[2018-06-17] MEDS ORDERED: Fentanyl 250 MCG/5 ML VIAL ONE (06:29)
[2018-06-17 06:53] LABS: Hemoglobin 13.2 g/dL (14.0-18.0); Mean Corpuscular HGB CONC 34.1 g/dL (32.0-36.0); Mean Corpuscular Hemoglobin 31.4 pg (27.0-31.0); Mean Platelet Volume 7.6 fL (7.4-10.4); Platelet Count 189 thou/uL (130-400); RBC Distribution Width 14.2 % (11.5-14.5); Red Blood Cell (RBC) Count 4.19 mill/uL (4.70-6.10); White Blood Cell (WBC) Count 7.5 thou/uL (4.8-10.8)
[2018-06-17] MEDS ORDERED: Bupivacaine/Epinephrine 0.25% 30 ML VIAL ONE (07:02)
[2018-06-17 07:12] LABS: Anion Gap 13 mmol/L (10-20); BUN (Urea Nitrogen) 20 mg/dL (8.4-25.7); Calc. Creatinine Clearance 53 mL/min (70-130); Calcium 9.6 mg/dL (7.8-10.44); Carbon Dioxide 25 mmol/L (23-31); Chloride 106 mmol/L (98-107); Estimated GFR-MDRD 65; Glucose 112 mg/dL (83-110); Potassium 4.1 mmol/L (3.5-5.1); Sodium 140 mmol/L (136-145)
[2018-06-17] MEDS ORDERED: Ondansetron HCl/PF 4 MG/2 ML Vial IVP PRN ×2 (09:33→12:39)
[2018-06-17] MEDS ORDERED: Promethazine HCl 25 MG/ML VIAL IM PRN (09:33)
[2018-06-17] MEDS ORDERED: Promethazine HCl 25 MG/ML VIAL SLOW IVP PRN (09:33)
[2018-06-17] MEDS ORDERED: Fentanyl 100 MCG/2 ML VIAL ONE ×2 (09:39→10:22)
--- NOTE | 2018-06-17 09:45 | OP ---
DATE OF PROCEDURE: 06/17/2018 PREOPERATIVE DIAGNOSIS: Symptomatic right carotid stenosis. PROCEDURE: Right carotid endarterectomy with bovine patch angioplasty. SURGEON: Josue Matos M.D. ANESTHESIA: General. ESTIMATED BLOOD LOSS: Less than 100. PROCEDURE IN DETAIL: After adequate anesthesia had been obtained, the patient was prepped and draped . Incision was made in the neck, exposing the common internal and external carotid arteries. The in ternal carotid artery rode posterior to the external carotid artery. After controlling these vessels , identifying the hypoglossal nerve, but not visualizing the vagus nerve, the patient was given 7500 units of heparin. Clamps were applied, arteriotomy performed, and a 12-Georgian shunt was placed. End arterectomy was then performed with satisfactory tapering distally. The area was irrigated thoroughl y with heparin saline. ACT was greater than 400. Following this, the bovine patch was secured with a running 6-0 Prolene suture, removing the shunt prior to completing the suture line. Forward flushi ng and back flushing the vessels. Flow was then restored up the external and then internal carotid a rteries. Backflow from the shunt was not very good. Following completion of this, protamine was giv en to partially reverse the heparin and after obtaining good hemostasis, the wound was irrigated and closed in layers.
--- NOTE | 2018-06-17 12:16 | EKG ---
Test Reason : PREOP Blood Pressure : / mmHG Vent. Rate : 082 BPM Atrial Rate : 082 BPM P-R Int : 142 ms QRS Dur : 088 ms QT Int : 372 ms P-R-T Axes : 041 000 034 degrees QTc Int : 434 ms Normal sinus rhythm Minimal voltage criteria for LVH, may be normal variant Nonspecific ST abnormality Abnormal ECG Confirmed by ASHA LAZCANO ([id number]) on 06/17/2018 12:16:17 PM Referred By: ARRON Confirmed By:ASHA LAZCANO
[2018-06-17] MEDS ORDERED: Fentanyl 100 MCG/2 ML VIAL SLOW IVP PRN (12:39)
[2018-06-17] MEDS ORDERED: Sodium Chloride 0.9% 1,000 ML IV SCH (12:39)
[2018-06-17] MEDS ORDERED: Phenylephrine 10 MG/NS 250 ML 250 ML IVPB PRN (12:39)
[2018-06-17] MEDS ORDERED: niCARdipine HCl 25 MG in Sodium Chloride 0.9% 250 ML 240 ML IVPB PRN (12:39)
[2018-06-17] MEDS ORDERED: HYDROcodone/Acetaminophen 5/325 mg Tablet PO PRN (12:39)
[2018-06-17] MEDS ORDERED: tiZANidine HCl 4 MG TAB PO PRN (12:39)
[2018-06-17] MEDS ORDERED: Acetaminophen 325 MG TAB PO PRN (12:39)
[2018-06-17 13:17] VITALS: BMI 22.3
[2018-06-17 13:19] VITALS: BP 104/42
[2018-06-17] MEDS: CEFAZOLIN/Water 2 GM/20 ML SYRINGE SLOW IVP SCH ×2 (14:35→21:18)
[2018-06-17] MEDS: HYDROcodone/Acetaminophen 5/325 mg Tablet PO PRN ×2 (16:53→21:04)
[2018-06-17] MEDS ORDERED: Mometasone/Formoterol 120 PUFF INHALER INH PRN (18:30)
[2018-06-17] MEDS: Metoprolol Tartrate 25 MG TAB PO SCH ×2 (20:37→23:14)
[2018-06-17] MEDS ORDERED: Amitriptyline HCl 25 MG TAB PO SCH (21:00)
[2018-06-18] MEDS: HYDROcodone/Acetaminophen 5/325 mg Tablet PO PRN ×3 (01:09→09:09)
[2018-06-18] MEDS: CEFAZOLIN/Water 2 GM/20 ML SYRINGE SLOW IVP SCH (05:18)
[2018-06-18 08:02] VITALS: TEMP 98
[2018-06-18] MEDS ORDERED: Tamsulosin HCl 0.4 MG CAP PO SCH (09:00)
[2018-06-18] MEDS ORDERED: Escitalopram Oxalate 20 mg Tablet PO SCH (09:00)
[2018-06-18] MEDS: Metoprolol Tartrate 25 MG TAB PO SCH (09:10)
--- NOTE | 2018-06-18 09:30 | DIS ---
DATE OF ADMISSION: 06/17/2018 DATE OF DISCHARGE: 06/18/2018 DIAGNOSIS: Right carotid stenosis. PROCEDURES: Right carotid endarterectomy with patch angioplasty. DESCRIPTION OF HOSPITAL STAY: Mr. Case was brought in for elective right carotid endarterectomy. He has done well and being discharged home in good condition. Follow up is with Dr. Matos in 2 week s.
== END 2018-06-18 10:16 | disposition home or self-care (01) | DRG 39 ==
LOC: SURG A 05:41 → CCU 10:11
PROVIDERS: ADMIT Thoracic Surgery (Cardiothoracic Vascular Surgery); ATTEND Thoracic Surgery (Cardiothoracic Vascular Surgery)
PROC: 03CH0ZZ Extirpation of Matter from Right Common Carotid Artery, Open Approach (ICD-10-PCS; principal; 2018-06-17)
PROC: 03UH0KZ Supplement Right Common Carotid Artery with Nonautologous Tissue Substitute, Open Approach (ICD-10-PCS; 2018-06-17)
DX: I65.23 Occlusion and stenosis of bilateral carotid arteries (principal); I70.213 Atherosclerosis of native arteries of extremities with intermittent claudication, bilateral legs; I25.10 Atherosclerotic heart disease of native coronary artery without angina pectoris; I10 Essential (primary) hypertension; E78.00 Pure hypercholesterolemia, unspecified; K44.9 Diaphragmatic hernia without obstruction or gangrene; F17.210 Nicotine dependence, cigarettes, uncomplicated; F32.9 Major depressive disorder, single episode, unspecified; M54.9 Dorsalgia, unspecified; G89.29 Other chronic pain; Z79.82 Long term (current) use of aspirin; Z90.49 Acquired absence of other specified parts of digestive tract; Z95.1 Presence of aortocoronary bypass graft; Z80.9 Family history of malignant neoplasm, unspecified; Z82.49 Family history of ischemic heart disease and other diseases of the circulatory system
CPT/HCPCS: 80048; 85027; 93005; 93010; 94640; J1644; J2250; J2720; J3010; J7620

== ENCOUNTER 2018-07-06 17:48 | Emergency (ER) | payer MEDICARE, MEDICAID ==
[2018-07-06 18:53] LABS: #Eosinphils 0.1 thou/uL (0.0-0.7); #Monocytes 0.4 thou/uL (0.11-0.59); #Neutrophils 5.1 thou/uL (1.40-6.50); %Basophils 0.2 % (0.0-1.0); %Eosinophils 0.9 % (0.0-10.0); %Lymphocytes 15.1 % (21.0-51.0); %Neutrophils 77.8 % (42.0-75.0); Hemoglobin 11.1 g/dL (14.0-18.0); Mean Corpuscular HGB CONC 33.5 g/dL (32.0-36.0); Mean Corpuscular Hemoglobin 31.5 pg (27.0-31.0); Mean Corpuscular Volume 94.1 fL (78.0-98.0); Mean Platelet Volume 7.5 fL (7.4-10.4); Platelet Count 180 thou/uL (130-400); RBC Distribution Width 13.9 % (11.5-14.5); Red Blood Cell (RBC) Count 3.53 mill/uL (4.70-6.10); White Blood Cell (WBC) Count 6.6 thou/uL (4.8-10.8)
--- NOTE | 2018-07-06 19:11 | RAD ---
AP VIEW CHEST: 07/06/18 HISTORY: Chest pain. AP view chest obtained on 07/06/18. Comparison made to previous exam from 03/11/18. AP view chest demonstrates sternotomy wires seen. Cardiomegaly noted. There appears to be a hiatal hernia present. Prominent interstitial markings seen in the lung bases compatible with interstitial fibrotic changes. No significant interval changes seen since the previous comparison exam. IMPRESSION: Bibasilar areas of increased interstitial markings compatible with bibasilar interstitial fibrosis. U nchanged since the previous exam. POS: [facility]
[2018-07-06 19:15] LABS: ALT (SGPT) 19 U/L (8-55); AST (SGOT) 21 U/L (5-34); Albumin 3.2 g/dL (3.4-4.8); Alkaline Phosphatase 87 U/L (40-150); Anion Gap 10 mmol/L (10-20); BUN (Urea Nitrogen) 21 mg/dL (8.4-25.7); Bilirubin, Total 0.5 mg/dL (0.2-1.2); Calc. Creatinine Clearance 0 mL/min (70-130); Calcium 7.4 mg/dL (7.8-10.44); Carbon Dioxide 21 mmol/L (23-31); Chloride 112 mmol/L (98-107); Estimated GFR-MDRD 88; Globulin 2.7 g/dL (2.4-3.5); Glucose 105 mg/dL (83-110); Potassium 4.4 mmol/L (3.5-5.1); Protein, Total 5.9 g/dL (5.8-8.1); Sodium 139 mmol/L (136-145)
[2018-07-06 19:17] LABS: CKMB 0.7 ng/mL (0-6.6); Troponin I Less than 0.010 ng/mL (< 0.028)
[2018-07-06 19:38] LABS: Bilirubin Negative (Negative); Blood, Urine Negative (Negative); Clarity CLEAR (Clear); Glucose, Urine (Dipstick) Negative (Negative); Leukocyte Negative (Negative); Nitrite Negative (Negative); Protein, Urine (Dipstick) Trace mg/dL (Neg-Trace); Specific Gravity, Urine 1.014 (1.002-1.036)
--- NOTE | 2018-07-06 20:44 | CT ---
CT BRAIN 07/06/18 HISTORY: Trembling, dizziness. Noncontrast enhanced CT images of the brain obtained. Brain and bone windows obtained. CT images of the brain demonstrate a small old area of periventricular infarction seen on axial image #20 in the subependymal white matter or possible body of the caudate on the right. No other acute ab normality seen. IMPRESSION: No evidence of acute intracranial pathology seen. POS: [facility]
== END 2018-07-06 21:20 | disposition home or self-care (01) ==
LOC: ERS 17:48
DX: R53.1 Weakness (principal); I10 Essential (primary) hypertension; J45.909 Unspecified asthma, uncomplicated; I25.10 Atherosclerotic heart disease of native coronary artery without angina pectoris; I25.2 Old myocardial infarction; F32.9 Major depressive disorder, single episode, unspecified; F17.210 Nicotine dependence, cigarettes, uncomplicated; Z79.899 Other long term (current) drug therapy; Z79.82 Long term (current) use of aspirin
CPT/HCPCS: 36415; 70450; 71045; 80053; 81003; 82553; 83605; 83880; 84146; 84484; 85025; 87040; 87086; 93005

== ENCOUNTER 2018-07-11 14:05 | Outpatient (CLI) | payer MEDICARE, MEDICAID ==
--- NOTE | 2018-07-11 16:24 | RAD ---
CHEST 2 VIEWS: COMPARISON: 02/27/16. FINDINGS: Chronic changes of the lung parenchyma. Stable large hiatal hernia. No significant consolidation or mass. There is no pneumothorax. Stable bone mineralization. There is a compression fracture with vertebroplasty change at the L1 level. Normal cardiac silhouette. IMPRESSION: Chronic changes. No acute process. POS: [facility]
== END 2018-07-11 14:06 | disposition home or self-care (01) ==
LOC: RAD 14:05
PROVIDERS: ATTEND Internal Medicine
DX: R06.00 Dyspnea, unspecified (principal)
CPT/HCPCS: 71046

== ENCOUNTER 2018-08-10 15:05 | Outpatient (CLI) | payer MEDICARE, MEDICAID ==
[2018-08-10 16:25] LABS: Hemoglobin 11.3 g/dL (14.0-18.0); Mean Corpuscular HGB CONC 32.7 g/dL (32.0-36.0); Mean Corpuscular Hemoglobin 30.7 pg (27.0-31.0); Mean Platelet Volume 7.5 fL (7.4-10.4); Platelet Count 204 thou/uL (130-400); RBC Distribution Width 14.2 % (11.5-14.5); Red Blood Cell (RBC) Count 3.69 mill/uL (4.70-6.10); White Blood Cell (WBC) Count 7.2 thou/uL (4.8-10.8)
[2018-08-10 16:45] LABS: Anion Gap 8 mmol/L (10-20); BUN (Urea Nitrogen) 21 mg/dL (8.4-25.7); Calc. Creatinine Clearance 0 mL/min (70-130); Calcium 9.3 mg/dL (7.8-10.44); Carbon Dioxide 29 mmol/L (23-31); Chloride 103 mmol/L (98-107); Estimated GFR-MDRD 84; Glucose 102 mg/dL (83-110); Sodium 136 mmol/L (136-145)
[2018-08-10 17:10] LABS: Bilirubin Negative (Negative); Blood, Urine Negative (Negative); Clarity CLEAR (Clear); Glucose, Urine (Dipstick) Negative (Negative); Leukocyte Negative (Negative); Nitrite Negative (Negative); Protein, Urine (Dipstick) Negative (Neg-Trace); Specific Gravity, Urine 1.018 (1.002-1.036); pH, Urine 6.5 (5.0-9.0)
[2018-08-10 17:12] LABS: Bacteria/HPF None Seen HPF (None Seen); Hyaline Casts/LPF 0-3 HYALINE CAST LPF (0-3 Hyaline); RBC/HPF 0-3 HPF (0-3); Squamous Epithelial None Seen HPF (0-3); WBC/HPF 0-3 HPF (0-3)
== END 2018-08-10 15:06 | disposition home or self-care (01) ==
LOC: LABBT 15:05
PROVIDERS: ATTEND Urology
DX: Z01.818 Encounter for other preprocedural examination (principal); N21.0 Calculus in bladder; N39.41 Urge incontinence
CPT/HCPCS: 80048; 81001; 85027; 85610; 85730; 87086; 93005; 93010

== ENCOUNTER 2018-08-18 07:02 | Observation (INO) | payer MEDICARE, MEDICAID ==
[2018-08-18] MEDS ORDERED: Levofloxacin 500 mg/D5W 100 ml Premix Bag ONE (08:55)
[2018-08-18] MEDS ORDERED: Fentanyl 100 MCG/2 ML VIAL ONE ×2 (09:23→11:45)
[2018-08-18] MEDS ORDERED: diphenhydrAMINE 25 MG CAP PO PRN (11:26)
[2018-08-18] MEDS ORDERED: Mag-Al 1200 mg/1200 mg/30 ML UDCUP PO PRN (11:26)
[2018-08-18] MEDS ORDERED: Acetaminophen 500 MG TAB PO PRN (11:26)
[2018-08-18] MEDS ORDERED: hydrALAZINE 20 MG/ML VIAL SLOW IVP PRN (11:26)
[2018-08-18] MEDS ORDERED: Ondansetron PF 4 MG/2 ML Vial IVP PRN (11:26)
[2018-08-18] MEDS ORDERED: Bisacodyl 10 MG SUPP PR PRN (11:26)
[2018-08-18] MEDS ORDERED: Nitroglycerin 0.4 MG TAB (25 Tab Bottle) SL PRN (11:29)
[2018-08-18] MEDS ORDERED: B & O 30 MG SUPP ONE (11:35)
[2018-08-18] MEDS ORDERED: Lidocaine 1% PF 5 ML VIAL ONE (11:43)
[2018-08-18] MEDS ORDERED: PROPOFOL 200 MG/20 ML VIAL ONE (11:43)
[2018-08-18] MEDS ORDERED: ePHEDrine/0.9% NaCl/PF SYRINGE 50 mg/10 ml ONE (11:43)
[2018-08-18] MEDS ORDERED: PHENYLEPHRINE-NS 100 MCG/ML 10 ML SYRINGE ONE (11:43)
--- NOTE | 2018-08-18 12:18 | OP ---
DATE OF SURGERY: 08/18/2018 SERVICE: Urology. SURGEON: Aguila Herrera M.D. PREOPERATIVE DIAGNOSIS: Benign prostatic hypertrophy, ureteral stone and bladder stones. POSTOPERATIVE DIAGNOSES: Benign prostatic hypertrophy and bladder stones. PROCEDURE PERFORMED: Transurethral vaporization of the prostate. Diagnostic ureteroscopy and cystolitholapaxy of stones greater than 2 cm. INDICATIONS FOR PROCEDURE: Mr. Case is a 73-year-old male with multiple comorbidities, who presented to me with significant bladder symptoms and flank pain. At the time of his CT, he had a 1 cm left distal ureteral stone and 2 bladder stones as well as lower urinary tract symptoms. I had recommended ureteroscopy with cystolitholapaxy and transurethral vaporization of the prostate. He did obtain pulmonary and cardiac clearance. Risks and benefits have been discussed previously and he has agreed to proceed forward. DESCRIPTION OF PROCEDURE: After identification of the armband and verification of consent, the patient was brought back to the operating room and he underwent general anesthesia with an LMA. He was then placed in dorsal lithotomy position , prepped and draped in usual sterile fashion. After appropriate timeout, lubricated 22-Syrian rigid cystoscope was introduced per urethra into the bladder. The bladder showed 3 bladder stones approximately 2 cm, 1.5 cm, and 1 cm in size. A ureteroscopy was performed on the left side. After advancing a sensor wire up into the left renal pelvis, the cystoscope was then removed and a rigid ureteroscope brought in and brought into the ureter. A ureteroscopy was performed all the way up to the mid ureter and no stone was encountered. As such, I felt that since he originally had only 2 stones in his bladder and now there were 3 stones it was very likely that the third stone represented the passed ureteral stone, which is now residing within the bladder. The CT from prior did not demonstrate any stones on the right. As such, the wire and ureteroscope were removed and the cystoscope was brought back into the bladder with a 1000 micron laser fiber to fragment all bladder stones into small pieces. The [employer] evacuator was used to remove these pieces with irrigation. Once all the fragments were released, the cystoscope was switched out for the 26 -Syrian visual obturator sheath for the bipolar vaporization. This was guided with ease back into the bladder. The visual obturator was then switched out for the bipolar button, vaporization was carried out circumferentially, but it is primarily on the left lobe, which was significantly larger than the right. The vaporization was performed until the prostate was completely opened in all directions, all the way up to the verumontanum. Relaxing incisions were made at 5 and 7 o'clock to allow for a wider bladder neck. Upon completion, the prostate was completely open with no evidence of obstruction. Meticulous hemostasis performed with the coag function of the bipolar. There was reinspection of the bladder to ensure that there were no additional stone fragments and none were encountered. Both ureters were unharmed in their orthotopic location. Satisfied, the resectoscope was removed and a 22-Syrian 3- way Price catheter was inserted with ease into the bladder with CBI initiated and 30 mL of sterile water placed into the balloon. This was affixed to a gravity bag and affixed to the leg with a StatLock. The patient was then taken out of lithotomy, awakened, and taken to PACU for recovery in stable condition. COMPLICATIONS: None. ESTIMATED BLOOD LOSS: Minimal. RETAINED TUBES AND DRAINS: A 22-Syrian 3-way Price catheter with 30 mL of sterile water in the balloon. SPECIMENS: Stone for stone analysis. DISPOSITION: The patient will be kept in the hospital overnight. We will plan a voiding trial in the morning and plan for discharge home afterwards with follow up on an outpatient basis. [facility]
[2018-08-18 13:11] VITALS: BMI 22.8
[2018-08-18] MEDS ORDERED: Morphine 2 mg/2ml in 0.9% NaCl PF SYRINGE SLOW IVP PRN (13:25)
[2018-08-18] MEDS: traMADol HCl 50 MG TAB PO PRN ×2 (13:35→21:31)
[2018-08-18] MEDS: Oxybutynin 5 MG TAB PO PRN ×2 (13:36→21:31)
[2018-08-18] MEDS: Morphine 2 MG/ML SYRINGE SLOW IVP PRN ×2 (14:06→17:45)
[2018-08-18] MEDS ORDERED: Mometasone/Formoterol 120 PUFF INHALER INH PRN (18:30)
[2018-08-18] MEDS ORDERED: Albuterol Sulfate 2.5 mg/3 ml Neb NEB PRN (21:00)
[2018-08-18] MEDS: Metoprolol Tartrate 25 MG TAB PO SCH (21:30)
[2018-08-18] MEDS: Rosuvastatin 20 MG TAB PO SCH (21:30)
[2018-08-18] MEDS: Amitriptyline HCl 25 MG TAB PO SCH (21:30)
[2018-08-18] MEDS: Docusate 100 MG CAP PO SCH (21:30)
[2018-08-18] MEDS: Atorvastatin Calcium 40 MG TAB PO SCH (21:30)
[2018-08-19] MEDS: traMADol HCl 50 MG TAB PO PRN ×3 (03:18→16:02)
[2018-08-19] MEDS: Morphine 2 MG/ML SYRINGE SLOW IVP PRN ×3 (03:19→20:15)
[2018-08-19 05:03] LABS: #Eosinphils 0.1 thou/uL (0.0-0.7); #Lymphocytes 1.4 thou/uL (1.20-3.40); #Monocytes 0.5 thou/uL (0.11-0.59); #Neutrophils 5.3 thou/uL (1.40-6.50); %Basophils 0.3 % (0.0-1.0); %Monocytes 6.5 % (0.0-10.0); %Neutrophils 73.2 % (42.0-75.0); Hemoglobin 11.1 g/dL (14.0-18.0); Mean Corpuscular HGB CONC 32.2 g/dL (32.0-36.0); Mean Corpuscular Hemoglobin 30.3 pg (27.0-31.0); Mean Corpuscular Volume 94.3 fL (78.0-98.0); Mean Platelet Volume 7.3 fL (7.4-10.4); Platelet Count 200 thou/uL (130-400); RBC Distribution Width 14.1 % (11.5-14.5); Red Blood Cell (RBC) Count 3.67 mill/uL (4.70-6.10); White Blood Cell (WBC) Count 7.3 thou/uL (4.8-10.8)
[2018-08-19 05:15] LABS: Anion Gap 9 mmol/L (10-20); BUN (Urea Nitrogen) 15 mg/dL (8.4-25.7); Calc. Creatinine Clearance 70 mL/min (70-130); Calcium 8.8 mg/dL (7.8-10.44); Carbon Dioxide 28 mmol/L (23-31); Chloride 103 mmol/L (98-107); Estimated GFR-MDRD 89; Glucose 101 mg/dL (83-110); Potassium 4.5 mmol/L (3.5-5.1); Sodium 135 mmol/L (136-145)
[2018-08-19] MEDS: Metoprolol Tartrate 25 MG TAB PO SCH ×2 (08:25→20:19)
[2018-08-19] MEDS: Docusate 100 MG CAP PO SCH ×2 (08:25→20:19)
--- NOTE | 2018-08-19 15:13 | PRG ---
DATE OF SERVICE: 08/19/2018 SUBJECTIVE: The patient states he is feeling fine. No complaints. No bladder spasms or pain. Beto es any chest pain or shortness of breath. He has gotten up and walked around already. His CBI was h eld this morning and his urine was very, very light pink. We discontinued his Price catheter, which was done and he had serial urine collection which demonstrated only daniel colored urine. He did not void very much, but states that he has also not been drinking very much water either. OBJECTIVE: VITAL SIGNS: Temperature 98.2, pulse 80, respirations 18, blood pressure 112/73, saturation 98% on r oom air. GENERAL: No apparent distress, communicative and alert. CARDIOVASCULAR: Regular rate and rhythm. ABDOMEN: Soft, nontender, nondistended, positive bowel sounds. GENITOURINARY: Price catheter was clear and then was removed. There is no scrotal edema or any evid ence of infection. EXTREMITIES: 1+ edema bilaterally. ASSESSMENT AND PLAN: A 73-year-old male status post transurethral vaporization of the prost ate with cystolitholapaxy and diagnostic ureteroscopy postop day #1. He appears to be voiding and I would like to get a bladder scan to make sure he is not in retention. So long as he is not in retent ion, I think he can be discharged home as he is not showing any evidence of significant bleeding. I have gone over his discharge instructions and will plan to follow up in approximately 2 weeks.
[2018-08-19] MEDS: Oxybutynin 5 MG TAB PO PRN (16:03)
[2018-08-19] MEDS: Atorvastatin Calcium 40 MG TAB PO SCH (20:19)
[2018-08-19] MEDS: Amitriptyline HCl 25 MG TAB PO SCH (20:19)
[2018-08-19] MEDS: Rosuvastatin 20 MG TAB PO SCH (20:19)
--- NOTE | 2018-08-19 23:31 | DIS ---
DATE OF ADMISSION: 08/18/2018 DATE OF DISCHARGE: 08/20/2018 ADMITTING DIAGNOSIS: Benign prostatic hypertrophy with bladder stone and ureteral stone. DISCHARGE DIAGNOSIS: Benign prostatic hypertrophy with bladder stones. PROCEDURE PERFORMED WHILE INPATIENT: Transurethral vaporization of prostate, cystolitholapaxy and diagnostic left ureteroscopy. BRIEF HISTORY: Mr. Case is a 73-year-old male, who initially presented with bladder stones, ureteral stone and BPH with urinary symptoms. We discussed treating all of these issues and he had elected to go forward and he is coming into the hospital for his surgeries. The full H and P can be found in the scanned portion of the [employer] system. HOSPITAL COURSE: After his surgery (please see operative note for details), the patient was kept in the hospital with continuous bladder irrigation. This was kept on overnight and then subsequently discontinued the following morning. His catheter was taken out and the patient was able to void 150 cc. A bladder scan showed that he had 350 cc leftover which was a significant postvoid residual and so I did not feel comfortable with the patient going home without a catheter. We replaced the catheter but the patient requested to stay one more night because of the catheter. We kept hiim overnight again and did a void trial the next day. His urine was clear and he was able to void to completion with no PVR. I have gone over all of his discharge instructions and he has agreed to be discharged home. DISPOSITION: Discharge to home. DISCHARGE CONDITION: Good. DISCHARGE MEDICATIONS: The patient is going to resume all of his home medications except for aspirin, which he will hold for approximately 7 days at which point he can restart it and he will discontinue his tamsulosin permanently. DISCHARGE INSTRUCTIONS: Include no heavy lifting, avoiding constipation, he may shower and submerge underwater if he desires, he should drink plenty of fluids to keep hydrated. FOLLOWUP: Follow up will be in approximately 2 weeks for a postop check. [facility]
[2018-08-20] MEDS: Morphine 2 MG/ML SYRINGE SLOW IVP PRN (03:46)
[2018-08-20 08:31] VITALS: BP 112/67; TEMP 97.9
[2018-08-20] MEDS: Metoprolol Tartrate 25 MG TAB PO SCH (09:25)
[2018-08-20] MEDS: Docusate 100 MG CAP PO SCH (09:26)
[2018-08-20] MEDS: traMADol HCl 50 MG TAB PO PRN (09:28)
--- NOTE | 2018-08-20 11:13 | PRG ---
DATE OF SERVICE: 08/20/2018 SUBJECTIVE: The patient states he is doing fine. He denied any chest pain, shortness of breath. He did not go home yesterday as he could not void and the catheter was replaced. He has done well over night with his catheter with very little blood in the urine. He has requested another void trial thi s morning. OBJECTIVE: VITAL SIGNS: Temperature 97.9, pulse 79, respirations 20, blood pressure 112/67, saturation 97% on 2 liters nasal cannula. GENERAL: No apparent distress, communicative, alert. CARDIOVASCULAR: Regular rate and rhythm. CHEST: Bilateral wheezes. A few scattered crackles, no increased respiratory effort. ABDOMEN: Soft, nontender, nondistended. GENITOURINARY: Price catheter in place with clear yellow urine, removed during void trial. EXTREMITIES: No clubbing, cyanosis or edema. PROCEDURE: The patient underwent a void trial with 180 mL of sterile water instilled into the bladde r. The patient voided out 170 mL. ASSESSMENT AND PLAN: A 73-year-old male with bladder stones and BPH status post cystolithol apaxy and transurethral vaporization of prostate postop day #2 with successful void trial. He has ve ry little blood in his urine. At this point, I think he can be discharged home without a catheter. Patient is very happy about that. We have gone over his discharge instructions yesterday. All of hi s medicines have already been sent in and he is cleared to be discharged home.
[2018-08-23 18:11] LABS: CA Oxalate Monohydrate 70 % (.); CA Phosphate 25 % (.); Color Brown (.); Stone Weight 5567.9 mg (.)
== END 2018-08-20 11:32 | disposition home or self-care (01) ==
LOC: SDC 07:02 → SURG B 11:26
PROVIDERS: ADMIT Urology; ATTEND Urology
PROC: 0TCB8ZZ Extirpation of Matter from Bladder, Via Natural or Artificial Opening Endoscopic (ICD-10-PCS; principal; 2018-08-18)
PROC: 0TJ98ZZ Inspection of Ureter, Via Natural or Artificial Opening Endoscopic (ICD-10-PCS; 2018-08-18)
PROC: 0VT08ZZ Resection of Prostate, Via Natural or Artificial Opening Endoscopic (ICD-10-PCS; 2018-08-18)
DX: N40.1 Benign prostatic hyperplasia with lower urinary tract symptoms (principal); N21.0 Calculus in bladder; I25.10 Atherosclerotic heart disease of native coronary artery without angina pectoris; F41.9 Anxiety disorder, unspecified; I25.2 Old myocardial infarction; I10 Essential (primary) hypertension; E78.5 Hyperlipidemia, unspecified; J84.10 Pulmonary fibrosis, unspecified; Z79.899 Other long term (current) drug therapy; Z95.1 Presence of aortocoronary bypass graft; Z98.890 Other specified postprocedural states
CPT/HCPCS: 51702; 52317; 52351; 52648; 76000; 80048; 82365; 85025; 88300; 94640; 96365; 96375 ×2; 96376 ×3; C1769; G0378; 36415; 96374; J1956; J2001; J2270; J2704; J3010; J7620

== ENCOUNTER 2018-09-15 12:15 | Outpatient (CLI) | payer MEDICARE, MEDICAID | END 2018-09-15 12:16 | disposition home or self-care (01) | LOC: CP 12:15 | PROVIDERS: ATTEND Internal Medicine | DX: K21.9 Gastro-esophageal reflux disease without esophagitis (principal); J84.9 Interstitial pulmonary disease, unspecified | CPT/HCPCS: 94060; 94727; 94729 ==

== ENCOUNTER 2018-11-10 15:14 | Outpatient (CLI) | payer MEDICARE, MEDICAID ==
--- NOTE | 2018-11-10 15:51 | ULT ---
RENAL ULTRASOUND: INDICATION: [place]. FINDINGS: The left kidney measures approximately 9 cm length. Cortical echogenicity appears normal. There is no evidence of hydronephrosis identified. The bladder is contracted and not well evaluated. There are scattered echogenic foci in the kidneys, some of which are vascular in origin. Tiny calcul i could not be excluded and were noted on prior CT. IMPRESSION: Unremarkable renal ultrasound. Tiny calculi are not excluded within the collecting structures. No h ydronephrosis. POS: [facility]
== END 2018-11-10 15:15 | disposition home or self-care (01) ==
LOC: BICULT 15:14
PROVIDERS: ATTEND Urology
DX: N13.30 Unspecified hydronephrosis (principal)
CPT/HCPCS: 76770

== ENCOUNTER 2018-11-29 09:32 | Outpatient (CLI) | payer MEDICARE, MEDICAID ==
--- NOTE | 2018-11-29 10:52 | RAD ---
CHEST TWO VIEWS: History: Dyspnea. Comparison: 07-11-18 FINDINGS: Large sliding hiatal hernia within the majority of the thoracic cavity. Chronic interstitial markings . No pneumothorax. No large effusion. IMPRESSION: Large hiatal hernia with likely background pulmonary fibrosis. POS: [facility]
== END 2018-11-29 09:33 | disposition home or self-care (01) ==
LOC: RAD 09:32
PROVIDERS: ATTEND Internal Medicine
DX: R06.00 Dyspnea, unspecified (principal); K44.9 Diaphragmatic hernia without obstruction or gangrene
CPT/HCPCS: 71046

== ENCOUNTER 2018-12-21 14:17 | Inpatient (IN) | payer MEDICARE, MEDICAID ==
[2018-12-21] MEDS ORDERED: Ondansetron PF 4 MG/2 ML Vial SLOW IVP PRN (14:43)
[2018-12-21] MEDS ORDERED: Benzonatate 100 MG CAP PO PRN (14:44)
[2018-12-21] MEDS ORDERED: Bisacodyl 5 MG TAB PO PRN (14:44)
[2018-12-21] MEDS ORDERED: Albuterol Sulfate 2.5 mg/3 ml Neb NEB PRN (14:46)
[2018-12-21] MEDS ORDERED: cefTRIAXone\\ROCEPHIN 1 GM in Sodium Chloride 0.9% 100 ML IVPB SCH (15:00)
[2018-12-21 15:06] LABS: #Basophils 0.1 thou/uL (0.0-0.2); #Lymphocytes 0.2 thou/uL (1.20-3.40); #Monocytes 0.1 thou/uL (0.11-0.59); #Neutrophils 7.5 thou/uL (1.40-6.50); %Eosinophils 0.1 % (0.0-10.0); %Lymphocytes 2.8 % (21.0-51.0); %Monocytes 0.9 % (0.0-10.0); %Neutrophils 95.2 % (42.0-75.0); Hemoglobin 12.5 g/dL (14.0-18.0); Mean Corpuscular HGB CONC 33.2 g/dL (32.0-36.0); Mean Corpuscular Hemoglobin 31.4 pg (27.0-31.0); Mean Corpuscular Volume 94.6 fL (78.0-98.0); Mean Platelet Volume 7.4 fL (7.4-10.4); Platelet Count 253 thou/uL (130-400); Red Blood Cell (RBC) Count 3.98 mill/uL (4.70-6.10); White Blood Cell (WBC) Count 7.9 thou/uL (4.8-10.8)
[2018-12-21 15:24] LABS: ALT (SGPT) 33 U/L (8-55); AST (SGOT) 31 U/L (5-34); Albumin 4.1 g/dL (3.4-4.8); Alkaline Phosphatase 156 U/L (40-150); Anion Gap 17 mmol/L (10-20); BUN (Urea Nitrogen) 18 mg/dL (8.4-25.7); Bilirubin, Total 0.7 mg/dL (0.2-1.2); Calc. Creatinine Clearance 55 mL/min (70-130); Calcium 9.9 mg/dL (7.8-10.44); Carbon Dioxide 22 mmol/L (23-31); Chloride 103 mmol/L (98-107); Estimated GFR-MDRD 70; Globulin 4.7 g/dL (2.4-3.5); Glucose 125 mg/dL (83-110); Potassium 4.5 mmol/L (3.5-5.1); Protein, Total 8.8 g/dL (5.8-8.1); Sodium 137 mmol/L (136-145)
--- NOTE | 2018-12-21 15:26 | PDOC.FPRHP ---
- History of Present Illness Chief Complaint: shortness of breath History of Present Illness: 73 y/o with extensive PMH with 2 week history of increasing shortness of breath , sputum production, and cough. No fever, chills. No cp. No f/c. No significant sick contacts. He was seen in our clinic by Dr. Barrera and dx with acute exacerbation of COPD, given 1 gm of ceftriaxone and a neb with minimal improvement and sent over for direct admit for observation likely overnight. He says he felt a bit better after the neb, but still is fatigued and dyspneic. His CAD, HLD have all been stable on his current regimen. All other systems reviewed and are as negative except as listed in the HPI. - Allergies/Adverse Reactions Allergies Allergy/AdvReac Type Severity Reaction Status Date / Time No Known Allergies Allergy Verified 12/21/18 14:56 - Home Medications Medication Instructions Recorded Confirmed Type Nitroglycerin [Nitrostat] 0.4 mg SL Q5MIN PRN 07/08/16 12/21/18 History Budesonide-Formoterol [Symbicort 2 puff INH BID 12/03/17 12/21/18 History 80-4.5] Metoprolol Tartrate [Lopressor] 12.5 mg PO BID 12/03/17 12/21/18 History tiZANidine HCl [Tizanidine HCl] 0.5 - 1 tab PO BID 04/28/18 12/21/18 History Rosuvastatin [Crestor] 1 tab PO HS 08/10/18 12/21/18 History traMADol HCl [Tramadol HCl] 50 mg PO Q6HR PRN #25 tablet 08/19/18 12/21/18 Rx ALButerol [Albuterol Sulfate Neb] 2.5 mg NEB Q4HR PRN 12/21/18 12/21/18 History Aspirin 325 mg PO DAILY 12/21/18 12/21/18 History Melatonin 1 - 2 tab PO HS PRN 12/21/18 12/21/18 History Venlafaxine HCl [Venlafaxine HCl 37.5 mg PO DAILY 12/21/18 12/21/18 History ER] traZODone HCl [Trazodone HCl] 50 mg PO HS 12/21/18 12/21/18 History - History PMHx: COPD Pulmonary fibrosis CAD HTN HLP DARY MDD Nephrolithiasis Esophageal hernia PSHx: Esophageal hernia CABG Cholecystectomy Kidney stone Neck surgery FHx: +CAD (uncle) Social: Extensive smoking history but negative x 8 days Denies ETOH or drug use - Review of Systems General: denies: fever/chills, weight/appetite/sleep changes, night sweats, fatigue ENT: denies: nasal congestion, rhinorrhea Gastrointestinal: denies: nausea, vomiting Genitourinary: denies: incontinence, dysuria Skin: denies: rashes, lesions, jaundice Musculoskeletal: denies: pain, tenderness, stiffness Neurological: reports: other (mildly light headed with standing). denies: numbness, syncope, seizure Psychological: reports: other - Vital signs BP: 158/68 HR: 91 RR: 16 Tmax: 98.2 Pox: 94% on RA; Wt 60 kg - Physical Exam Constitutional: NAD, well developed HEENT: normocephalic and atraumatic, PERRLA, conjunctiva clear Neck: supple, FROM Chest: no-tender to palpation, no lesions Heart: RRR, normal S1/S2 Lungs: other (tachpneic, mild rtx, extensive inspiratory crackles and soft expiratory wheezes; audible bowel sounds) Abdomen: soft, non-tender, bowel sounds present, no masses/distention Musculoskeletal: normal structure, normal tone Neurological: no focal deficit, CN II-XII intact, normal sensation Skin: no rash/lesions, good turgor, capillary refill <2 seconds, no jaundice Heme/Lymphatic: no unusual bruising or bleeding, no purpura, other (extensive tattoos) Psychiatric: normal mood and affect, good judgment and insight FMR H&P: Results - Labs Result Diagrams: 12/21/18 14:56 Lab results: WBC 7.9 thou/uL (4.8-10.8) 12/21/18 14:56 Hgb 12.5 g/dL (14.0-18.0) L 12/21/18 14:56 Hct 37.6 % (42.0-52.0) L 12/21/18 14:56 MCV 94.6 fL (78.0-98.0) 12/21/18 14:56 Plt Count 253 thou/uL (130-400) 12/21/18 14:56 Neutrophils % 95.2 % (42.0-75.0) H 12/21/18 14:56 - Radiology Interpretation Chest x-ray Additional comment: Adequate film, slightly rotated, extensive scarring vs traction atelectasis 2/2 likely pulm fibrosis; No infiltrate or effusion; impressive esophageal hernia; stable appearance compared with prior FMR H&P: A/P - Problem List (1) COPD with acute exacerbation Current Visit: Yes Status: Acute Code(s): J44.1 - CHRONIC OBSTRUCTIVE PULMONARY DISEASE W (ACUTE) EXACERBATION Assessment and Plan: Begin steroids; continue rocephin per Dr. Barrera; nebs q6h. (2) CAD (coronary artery disease) Current Visit: Yes Status: Chronic Code(s): I25.10 - ATHSCL HEART DISEASE OF [place] CORONARY ARTERY W/O ANG PCTRS Assessment and Plan: Continue ASA (changed to 81 mg); statin; metoprolol (3) HLD (hyperlipidemia) Current Visit: Yes Status: Chronic Code(s): E78.5 - HYPERLIPIDEMIA, UNSPECIFIED Assessment and Plan: Continue statin (4) Anxiety Current Visit: No Status: Acute Code(s): F41.9 - ANXIETY DISORDER, UNSPECIFIED Assessment and Plan: Continue home meds (5) Depression Current Visit: No Status: Chronic Code(s): F32.9 - MAJOR DEPRESSIVE DISORDER , SINGLE EPISODE, UNSPECIFIED Assessment and Plan: Continue home meds (6) Pulmonary fibrosis Current Visit: Yes Status: Chronic Code(s): J84.10 - PULMONARY FIBROSIS, UNSPECIFIED Assessment and Plan: See plan for COPD; maintain O2 sats > 88% (7) Hiatal hernia Current Visit: Yes Status: Chronic Code(s): K44.9 - DIAPHRAGMATIC HERNIA WITHOUT OBSTRUCTION OR GANGRENE Assessment and Plan: Stable, monitor - Plan Nebs Steroids Antibiotics Monitor overnight, hopeful d/c in AM PRN meds ordered DVT/GI ppx Will keep Dr. Barrera UTD Disposition/LOS: 1 night FMR H&P: Upper Level - Plan Date/Time: 12/21/18 1522 I, [], have evaluated this patient and agree with findings/plan as outlined by help desk intern resident. Pertinent changes/additions are listed here.
[2018-12-21] MEDS: Acetaminophen 500 MG TAB PO PRN (16:02)
--- NOTE | 2018-12-21 16:11 | RAD ---
SINGLE VIEW CHEST: HISTORY: Respiratory failure. COMPARISON: 12/21/2018 at 10:59 a.m. FINDINGS: A single view of the chest shows a cardiomediastinal silhouette, which is at the upper limits of norm al in size. The patient is status post CABG. There appears to be a large hiatal hernia. Increased interstitial lung markings are present. There is no evidence of consolidation, mass, or pleural effu suresh. IMPRESSION: Stable examination. POS: [facility]
[2018-12-21] MEDS: traMADol HCl 50 MG TAB PO PRN (17:13)
--- NOTE | 2018-12-21 17:36 | RAD ---
CHEST TWO VIEWS: HISTORY: COPD exacerbation. Shortness of breath. FINDINGS: Postop midline sternotomy. Large hiatal hernia. Increased linear and interstitial markings noted bi laterally, evidence for fairly extensive bilateral nonspecific chronic interstitial lung disease. No confluent pneumonia or overt edema. Status post vertebroplasty changes of one of the upper lumbar v ertebral bodies. IMPRESSION: 1. Large hiatal hernia. 2. Extensive chronic linear and interstitial lung change. 3. No new process from earlier, 12/21/2018 study. POS: [facility]
[2018-12-21] MEDS: Rosuvastatin 20 MG TAB PO SCH (21:12)
[2018-12-21] MEDS: Metoprolol Tartrate 25 MG TAB PO SCH (21:12)
[2018-12-21] MEDS: Melatonin 3 MG TAB PO PRN (23:00)
[2018-12-21] MEDS: traZODone HCl 50 MG TAB PO PRN (23:01)
[2018-12-22] MEDS: Acetaminophen 500 MG TAB PO PRN ×3 (02:51→19:03)
[2018-12-22] MEDS: traMADol HCl 50 MG TAB PO PRN ×2 (02:52→11:44)
--- NOTE | 2018-12-22 06:03 | PDOC.FM ---
- Subjective Subjective: Patient reports improvement in his SOB since admission. Does endorse persistent increased dyspnea on exertion but better than it was at presentation. Endorses a dry cough and chills but denies any N/V/D. Also reports persistent chest pain exacerbated by coughing or taking a deep breath. - Objective MAR Reviewed: Yes Vital Signs & Weight: Vital Signs (12 hours) Temp Pulse Resp BP BP Pulse Ox 12/22/18 02:52 83 18 141/61 H 95 12/22/18 02:29 91 16 94 L 12/21/18 23:01 79 18 144/76 H 95 12/21/18 22:18 95 18 94 L 12/21/18 19:18 98.2 F 93 12 134/61 95 12/21/18 19:04 96 16 93 L Weight Weight 60.736 kg I&O: 12/20/18 12/21/18 12/22/18 06:59 06:59 06:59 Intake Total 460 Output Total 125 Balance 335 Result Diagrams: 12/21/18 14:56 12/21/18 14:56 Phys Exam - Physical Examination Constitutional: NAD HEENT: moist MMs Neck: supple, full ROM Diffuse inspiratory crackles w/ mild en-expiratory wheezing noted in various lung buitrago; no apparent respiratory distress Cardiovascular: RRR, no significant murmur Neurological: non-focal, moves all 4 limbs Psychiatric: normal affect, A&O x 3 Skin: no rash, normal turgor, cap refill <2 seconds Dx/Plan (1) COPD with acute exacerbation Code(s): J44.1 - CHRONIC OBSTRUCTIVE PULMONARY DISEASE W (ACUTE) EXACERBATION Status: Acute (2) CAD (coronary artery disease) Code(s): I25.10 - ATHSCL HEART DISEASE OF [place] CORONARY ARTERY W/O ANG PCTRS Status: Chronic (3) HLD (hyperlipidemia) Code(s): E78.5 - HYPERLIPIDEMIA, UNSPECIFIED Status: Chronic (4) Hiatal hernia Code(s): K44.9 - DIAPHRAGMATIC HERNIA WITHOUT OBSTRUCTION OR GANGRENE Status: Chronic (5) Pulmonary fibrosis Code(s): J84.10 - PULMONARY FIBROSIS, UNSPECIFIED Status: Chronic (6) Depression Code(s): F32.9 - MAJOR DEPRESSIVE DISORDER, SINGLE EPISODE, UNSPECIFIED Status : Chronic (7) HTN (hypertension) Code(s): I10 - ESSENTIAL (PRIMARY) HYPERTENSION Status: Acute (8) Anxiety Code(s): F41.9 - ANXIETY DISORDER, UNSPECIFIED Status: Acute - Plan Plan: 73YOM w/ h/o pulmonary fibrosis & COPD admitted directly from clinic for observation overnight 2/2 an acute COPD exacerbation. Acute COPD Exacerbation: - Patient sent over for obs from clinic after minimal improvement in RR s/p 1 Duoneb tx & an IM steroid & rocephin injection. CXR also suggestive of a possible R-sided PNA in clinic. Rpeat x-ray on admission unchanged from previous x-ray w/ no noted focal consolidation or overt PNA. Just chronic pulmonary fibrosis changes. - Will continue PO steroids & MARY & PRN Duonebs & de-escalate as tolerated by patient. Will also consider de-escalating IV abx to a PO option in anticipation of possible d/c later today. COPD - Aware, see plan for acute exacerbation above. CAD - Resume home meds. HTN - Resume home meds. HLD - Resume home meds. DARY - Resume home meds. MDD - Resume home meds. Pulmonary fibrosis - Aware. Nephrolithiasis - Aware, stable. Esophageal hernia - Aware, stable. Dispo: Will monitor closely over course of today for respiratory status improvement. Possible d/c w/ close outpatient follow-up. Abx: Rocephin (12/21) IVFs: SL GI PPx: none DVT PPx: SCDs Addendum - Attending - Attending Attestation Date/Time: 12/22/18 [id number] I personally evaluated the patient and discussed the management with Dr. Vega. I agree with the History, Examination, Assessment and Plan documented above with any addition or exceptions noted below. Patient is having increased coughing and tachypnea while trying to speak. will continue nebs, steroids. Will add spiriva to maintenance regimen. Mucinex to help with congestion.
[2018-12-22] MEDS: Metoprolol Tartrate 25 MG TAB PO SCH ×2 (08:58→20:18)
[2018-12-22] MEDS: Venlafaxine XR 37.5 MG CAP PO SCH (08:58)
[2018-12-22] MEDS: Aspirin 81 mg Enteric Coated Tablet PO SCH (08:58)
[2018-12-22] MEDS: predniSONE 20 MG TAB PO SCH (08:58)
[2018-12-22 15:54] VITALS: BMI 21.5
[2018-12-22] MEDS ORDERED: traMADol HCl 50 MG TAB PO SCH (18:45)
[2018-12-22] MEDS: Doxycycline 100 MG CAP PO SCH (20:17)
[2018-12-22] MEDS: guaiFENesin/DM ER PO SCH (20:18)
[2018-12-22] MEDS: Rosuvastatin 20 MG TAB PO SCH (20:19)
[2018-12-22] MEDS: Melatonin 3 MG TAB PO PRN (20:19)
[2018-12-22] MEDS: traZODone HCl 50 MG TAB PO PRN (20:20)
[2018-12-22] MEDS: tiZANidine HCl 4 MG TAB PO SCH (20:23)
[2018-12-22] MEDS ORDERED: Enoxaparin Sodium 40 MG/0.4 ML SYRINGE SC SCH (21:00)
[2018-12-23] MEDS: Acetaminophen 500 MG TAB PO PRN ×2 (00:18→05:45)
[2018-12-23] MEDS: traMADol HCl 50 MG TAB PO SCH ×3 (00:18→12:00)
--- NOTE | 2018-12-23 06:41 | PDOC.FM ---
- Subjective Subjective: Patient states he feels much better this AM. Denies any fever/chills or N/V. States he is able to produce some sputum now. Reports improvement in chest pain w/ coughing. Also states his SOB is much improved. - Objective MAR Reviewed: Yes Vital Signs & Weight: Vital Signs (12 hours) Temp Pulse Resp BP Pulse Ox 12/23/18 04:00 97.9 F 72 18 163/71 H 98 12/23/18 02:47 70 12 12/23/18 00:00 97.8 F 70 18 131/70 98 12/22/18 22:46 16 12/22/18 20:07 100 16 99 12/22/18 19:51 99 12/22/18 19:00 98.1 F 100 18 134/63 99 Weight Weight 58.649 kg I&O: 12/21/18 12/22/18 12/23/18 06:59 06:59 06:59 Intake Total 760 1250 Output Total 125 625 Balance 635 625 Result Diagrams: 12/21/18 14:56 12/23/18 06:40 Phys Exam - Physical Examination Constitutional: NAD HEENT: moist MMs Neck: supple, full ROM inspiratory crackles throughout with tract end exp wheezing, feng in B/L upper lobes Cardiovascular: RRR, no significant murmur Neurological: non-focal, moves all 4 limbs Psychiatric: normal affect, A&O x 3 Skin: no rash, normal turgor Dx/Plan (1) COPD with acute exacerbation Code(s): J44.1 - CHRONIC OBSTRUCTIVE PULMONARY DISEASE W (ACUTE) EXACERBATION Status: Acute (2) CAD (coronary artery disease) Code(s): I25.10 - ATHSCL HEART DISEASE OF [place] CORONARY ARTERY W/O ANG PCTRS Status: Chronic (3) HLD (hyperlipidemia) Code(s): E78.5 - HYPERLIPIDEMIA, UNSPECIFIED Status: Chronic (4) Hiatal hernia Code(s): K44.9 - DIAPHRAGMATIC HERNIA WITHOUT OBSTRUCTION OR GANGRENE Status: Chronic (5) Pulmonary fibrosis Code(s): J84.10 - PULMONARY FIBROSIS, UNSPECIFIED Status: Chronic (6) Depression Code(s): F32.9 - MAJOR DEPRESSIVE DISORDER, SINGLE EPISODE, UNSPECIFIED Status : Chronic (7) HTN (hypertension) Code(s): I10 - ESSENTIAL (PRIMARY) HYPERTENSION Status: Acute (8) Anxiety Code(s): F41.9 - ANXIETY DISORDER, UNSPECIFIED Status: Acute (9) Chronic back pain Code(s): M54.9 - DORSALGIA, UNSPECIFIED; G89.29 - OTHER CHRONIC PAIN Status: Acute - Plan Plan: 73YOM w/ h/o pulmonary fibrosis & COPD admitted directly from clinic for observation overnight 2/2 an acute COPD exacerbation. Acute COPD Exacerbation: - Clinically markedly improved on exam this AM. Satting 98-99% on RA 7 in no distress. - Will continue PO steroids & MARY & PRN Duonebs & de-escalate as tolerated by patient. Will also continue PO antibiotics and have patient complete a 5 day course. Possible d/c later today w/ close outpatient follow-up. - Will talk with CM about setting patient up with outpatient pulmonary rehab as well. Per CM patient does not qualify for portable home O2 based on his walking O2 sats. Only desatted down to 93% on RA w/ exertion. COPD - Aware, see plan for acute exacerbation above. CAD - Resume home meds. HTN - Resume home meds. HLD - Resume home meds. DARY - Resume home meds. MDD - Resume home meds. Pulmonary fibrosis - Aware. Nephrolithiasis - Aware, stable. Esophageal hernia - Aware, stable. Chronic Back Pain: - Resumed home tizanidine & tramadol. Dispo: Anticipate d/c w/ close outpatient follow-up & referral to pulmonary rehab as an outpatient. Abx: Doxycycline (12/22) IVFs: SL GI PPx: none DVT PPx: Lovenox Addendum - Attending - Attending Attestation Date/Time: 12/23/18 1019 I personally evaluated the patient and discussed the management with Dr. Vega. I agree with the History, Examination, Assessment and Plan documented above with any addition or exceptions noted below. The patient is feeling better. Shortness of breath has improved. Will d/c home. Setting pt up for pulmonary rehab.
[2018-12-23 07:10] LABS: Anion Gap 11 mmol/L (10-20); BUN (Urea Nitrogen) 27 mg/dL (8.4-25.7); Calc. Creatinine Clearance 59 mL/min (70-130); Carbon Dioxide 25 mmol/L (23-31); Chloride 107 mmol/L (98-107); Estimated GFR-MDRD 78; Glucose 110 mg/dL (83-110); Potassium 3.8 mmol/L (3.5-5.1); Sodium 139 mmol/L (136-145)
[2018-12-23] MEDS: Metoprolol Tartrate 25 MG TAB PO SCH (09:34)
[2018-12-23] MEDS: Aspirin 81 mg Enteric Coated Tablet PO SCH (09:34)
[2018-12-23] MEDS: tiZANidine HCl 4 MG TAB PO SCH (09:35)
[2018-12-23] MEDS: Venlafaxine XR 37.5 MG CAP PO SCH (09:36)
[2018-12-23] MEDS: guaiFENesin/DM ER PO SCH (09:37)
[2018-12-23] MEDS: Doxycycline 100 MG CAP PO SCH (09:38)
[2018-12-23] MEDS: predniSONE 20 MG TAB PO SCH (09:39)
[2018-12-23 11:10] VITALS: BP 114/65; TEMP 98.3
--- NOTE | 2018-12-23 22:08 | DIS ---
DATE OF ADMISSION: 12/21/2018 DATE OF DISCHARGE: 12/23/2018 RESIDENT: Milla Vega MD CONSULTS: None. PROCEDURES: 1. Chest x-ray on 12/21/2018 showed a large hiatal hernia and increased interstitial lung markings, but no evidence of consolidation, mass, or pleural effusion. 2. Repeat chest x-ray on 12/21/2018 which showed a large hiatal hernia, extensive chronic linear and interstitial lung changes, no new process from earlier 12/21/2018 study. PRIMARY DIAGNOSIS: Acute on chronic obstructive pulmonary disease exacerbation. SECONDARY DIAGNOSES: 1. Chronic obstructive pulmonary disease. 2. Pulmonary fibrosis. 3. Hypertension. 4. Chronic back pain. 5. Coronary artery disease. 6. Peripheral vascular disease. 7. Hyperlipidemia. 8. BPH. 9. Depression. 10. History of hiatal hernia. 11. Anxiety. DISCHARGE MEDICATIONS: 1. Nitroglycerin 0.4 mg sublingual every 5 minutes p.r.n. 2. Symbicort 80-4.5 mg aerosolized two puffs inhaled b.i.d. 3. Tramadol 50 mg p.o. every 6 hours p.r.n. #25. 4. Trazodone 50 mg p.o. at bedtime. 5. Aspirin 325 mg p.o. daily. 6. Albuterol 2.5 mg nebulized every 4 hours p.r.n. 7. Tylenol Extra Strength 1000 mg p.o. every 6 hours p.r.n. 8. Dulcolax 5 mg p.o. daily p.r.n. 9. Doxycycline 100 mg p.o. b.i.d. for 3 days. 10. Mucinex 2 tabs p.o. every 12 hours for one week. 11. Prednisone 40 mg p.o. q.a.m. for 3 days. 12. Spiriva Respimat 4 g two inhalations inhaled daily. 13. DuoNeb 3 mL nebulized every 4 hours p.r.n. 14. Melatonin one to two 1 mg tablets p.o. at bedtime p.r.n. 15. Metoprolol tartrate 12.5 mg p.o. b.i.d. 16. Crestor 1 tab p.o. at bedtime. 17. Tizanidine 4 mg tablets 0.5-1 tab p.o. b.i.d. 18. Venlafaxine HCL 75 mg capsule, 37.5 mg p.o. daily. DISCONTINUED MEDICATIONS: None. HOSPITAL COURSE: The patient is a 73-year-old gentleman with a past medical history significant for COPD, on p.r.n. home oxygen and pulmonary fibrosis, who was admitted directly from outpatient clinic after presenting there with a 2-week history of increasing shortness of breath, sputum production, and cough. The patient denied any fever, chills, chest pain, or significant sick contacts. In clinic, the patient was given one DuoNeb treatment and 1 g IM dose of Rocephin and had minimal improvement in his tachypnea. He was therefore directly admitted for observation overnight for an acute COPD exacerbation. On presentation to the hospital, the patient was noted to be slightly hypertensive with a blood pressure of 150/68, but was maintaining adequate O2 saturations at 94% on room air. The patient was started on scheduled DuoNeb treatments every 4 hours with respiratory therapy and continued on p.o. steroids as well as p.o. antibiotics. The patient was on and off oxygen overnight, but maintaining adequate saturations both on and off oxygen. However, the following morning, the patient's cough had significantly worsened and he was unable to converse without stopping frequently to cough. He was therefore started on a mucolytic in order to encourage sputum expectoration and was continued on scheduled medicines as previously described. By the date of discharge, the patient was noted to have maintained walking room air O2 saturations around 93% and therefore did not qualify for a home O2 concentrator device. It was, however, recommended that the patient be referred to outpatient pulmonary rehab and Case Management was able to assist in setting this up for the patient prior to discharge later that morning. The patient was instructed to follow up closely with his primary care physician and to continue p.o. antibiotics and steroids for three additional days upon discharge. DISPOSITION: Stable. DISCHARGE INSTRUCTIONS: 1. Location: Home. 2. Diet: Heart healthy diet. 3. Activity: Activity as tolerated, no restrictions. 4. Followup: The patient was discharged to follow up with his primary care physician, Dr. Raúl Barrera within one week of discharge. PRIMARY CARE PHYSICIAN: Raúl Barrera MD Job ID: [id number]
== END 2018-12-23 13:51 | disposition home or self-care (01) | DRG 192 ==
LOC: 2SW 14:17 → OBSVTOIN 14:17 → T4-B 12-22 18:53
PROVIDERS: ADMIT Emergency Medicine; ATTEND Emergency Medicine
DX: J44.1 Chronic obstructive pulmonary disease with (acute) exacerbation (principal); I25.10 Atherosclerotic heart disease of native coronary artery without angina pectoris; E78.5 Hyperlipidemia, unspecified; I10 Essential (primary) hypertension; F32.9 Major depressive disorder, single episode, unspecified; F41.9 Anxiety disorder, unspecified; J84.10 Pulmonary fibrosis, unspecified; K44.9 Diaphragmatic hernia without obstruction or gangrene; G89.29 Other chronic pain; M54.9 Dorsalgia, unspecified; I73.9 Peripheral vascular disease, unspecified; N40.0 Benign prostatic hyperplasia without lower urinary tract symptoms; Z95.1 Presence of aortocoronary bypass graft; Z98.890 Other specified postprocedural states; Z90.49 Acquired absence of other specified parts of digestive tract; Z87.891 Personal history of nicotine dependence
CPT/HCPCS: 36415; 71045; 71046; 80048; 80053; 83880; 85025; 94640; J0696; J1650; J7050; J7620

== ENCOUNTER 2019-11-18 19:15 | Inpatient (IN) | payer MEDICARE, MEDICAID ==
--- NOTE | 2019-11-18 20:24 | RAD ---
XR Foot Rt 3 View STANDARD INDICATION: Right foot wound COMPARISON: None. FINDINGS: Bones: No acute fracture identified. There are bifid great toe sesamoids. Joints: Joints spaces appear preserved. Lisfranc alignment: Lisfranc alignment appears within normal limits. Soft tissues: No soft tissue injury demonstrated. No radiographic foreign body demonstrated. There ar e Monckeberg calcifications within the soft tissues of the right foot. IMPRESSION: No acute osseous abnormality.
[2019-11-18] MEDS ORDERED: Piperacillin/Tazobactam 4.5 GM VIAL ONE (20:26)
[2019-11-18] MEDS ORDERED: Morphine 4 MG/ML VIAL ONE (20:29)
[2019-11-18 20:33] LABS: #Eosinphils 0.1 thou/uL (0.0-0.7); #Lymphocytes 1.7 thou/uL (1.20-3.40); #Monocytes 0.4 thou/uL (0.11-0.59); %Basophils 0.6 % (0.0-1.0); %Lymphocytes 20.5 % (21.0-51.0); %Monocytes 4.9 % (0.0-10.0); Hemoglobin 13.2 g/dL (14.0-18.0); Mean Corpuscular HGB CONC 32.8 g/dL (32.0-36.0); Mean Corpuscular Hemoglobin 30.8 pg (27.0-31.0); Mean Corpuscular Volume 93.8 fL (78.0-98.0); Mean Platelet Volume 8.3 fL (7.4-10.4); Platelet Count 195 thou/uL (130-400); RBC Distribution Width 14.4 % (11.5-14.5); White Blood Cell (WBC) Count 8.2 thou/uL (4.8-10.8)
[2019-11-18 20:53] LABS: ALT (SGPT) 23 U/L (8-55); AST (SGOT) 28 U/L (5-34); Alkaline Phosphatase 101 U/L (40-110); Anion Gap 12 mmol/L (10-20); BUN (Urea Nitrogen) 25 mg/dL (8.4-25.7); Bilirubin, Total 0.3 mg/dL (0.2-1.2); Calc. Creatinine Clearance 0 mL/min (70-130); Calcium 8.9 mg/dL (7.8-10.44); Carbon Dioxide 23 mmol/L (23-31); Chloride 107 mmol/L (98-107); Estimated GFR-MDRD 73; Globulin 3.7 g/dL (2.4-3.5); Glucose 125 mg/dL (83-110); Protein, Total 7.7 g/dL (5.8-8.1); Sodium 138 mmol/L (136-145)
[2019-11-18] MEDS ORDERED: Calcium Carbonate 500 MG ChewTAB PO PRN (21:52)
[2019-11-18] MEDS ORDERED: Acetaminophen 325 MG TAB PO PRN (21:52)
[2019-11-18] MEDS ORDERED: Morphine 2 MG/ML SYRINGE SLOW IVP PRN (22:01)
--- NOTE | 2019-11-18 22:05 | PDOC.FPRHP ---
- History of Present Illness Chief Complaint: right toe pain History of Present Illness: Patient is a 74M with PMHx of severe PVD, HTN, CAD, HLD, chronic neck/back pain , IPF that presented to the ED for worsening right 5th toe pain. Patient reportedly had a bunion removal mid-August 2019, but during the last 2 weeks the area has become slightly erythematous and progressively painful. He reports of a subjective fever and chills over the last few days. Patient has a significant hx of PAD. He had a 5-vessel bypass in 2000 and bilateral carotid endarterectomies. PCP: [facility] ED Course: 1g vanc, 4mg morphine, 4.5mg zosyn, 1L NS - Allergies/Adverse Reactions Allergies Allergy/AdvReac Type Severity Reaction Status Date / Time No Known Allergies Allergy Verified 11/19/19 00:29 - Home Medications Medication Instructions Recorded Confirmed Type Nitroglycerin [Nitrostat] 0.4 mg SL Q5MIN PRN 07/08/16 11/19/19 History Budesonide-Formoterol [Symbicort 2 puff INH BID 12/03/17 11/19/19 History 80-4.5] traMADol HCl [Tramadol HCl] 50 mg PO Q6HR PRN #25 tablet 08/19/18 11/19/19 Rx ALButerol [Albuterol Sulfate Neb] 2.5 mg NEB Q4HR PRN 12/21/18 11/19/19 History Aspirin 325 mg PO DAILY 12/21/18 11/19/19 History traZODone HCl [Trazodone HCl] 50 mg PO HS 12/21/18 11/19/19 History Acetaminophen [Tylenol Extra 1,000 mg PO Q6H PRN tab 12/23/18 11/19/19 Rx Strength] Bisacodyl [Dulcolax] 5 mg PO DAILY PRN tab 12/23/18 11/19/19 Rx Metoprolol Tartrate [Lopressor] 12.5 mg PO BID #60 tab 12/23/18 11/19/19 Rx Rosuvastatin [Crestor] 1 tab PO HS #30 tab 12/23/18 11/19/19 Rx Tiotropium [place] [Spiriva 2 inh IH DAILY #1 inhaler 12/23/18 11/19/19 Rx Respimat] Venlafaxine HCl [Venlafaxine HCl 37.5 mg PO DAILY #60 cap.er.24h 12/23/18 Rx ER] guaiFENesin/DM ER [Mucinex DM] 2 tab PO Q12HR #14 tab 12/23/18 11/19/19 Rx predniSONE 40 mg PO QAM-WM #6 tab 12/23/18 11/19/19 Rx Ipratropium/Albuterol Sulfate 3 ml NEB BID 11/19/19 11/19/19 History [DuoNeb] Melatonin 6 mg PO HS PRN 11/19/19 11/19/19 History tiZANidine HCl [Tizanidine HCl] 4 mg PO TID 11/19/19 11/19/19 History - History PMHx: severe PAD, HTN, CAD, HLD, chronic neck/back pain, IPF PSHx: 5-vessel bypass in 2000, L and R carotid endarterectomies in , neck sx, cholcystectomy, hiatal hernia repair, kidney stone removal FHx: unknown per patient Social: smokes 1 pack cigarettes/week (prior 1 pack q2days) for last 45 yrs, no etoh or drug use - Review of Systems General: reports: fever/chills. denies: weight/appetite/sleep changes Eyes: denies: eye pain, vision changes ENT: denies: nasal congestion, rhinorrhea Respiratory: reports: shortness of breath (chronic). denies: cough Cardiovascular: denies: chest pain, edema Gastrointestinal: denies: nausea, vomiting, diarrhea Genitourinary: denies: incontinence, dysuria Skin: reports: rashes (erythema of right 5th digit). denies: jaundice Musculoskeletal: reports: pain (pain of right 5th digit) Neurological: denies: syncope, seizure Psychological: denies: anxiety, depression - Vital signs BP: [126/71] HR: [92] RR: [18] Tmax: [98.3F] Pox: [97]% on [RA] Wt: [63.05kg] - Physical Exam Constitutional: NAD, awake, alert and oriented HEENT: normocephalic and atraumatic, EOMI, MMM Neck: supple, FROM Chest: no-tender to palpation, no lesions Heart: RRR, normal S1/S2 Lungs: no respiratory distress, other (crackles throughout) Abdomen: non-tender, bowel sounds present Musculoskeletal: normal structure, normal tone Neurological: no focal deficit, normal sensation Skin: other (1x1cm scab lateral R 5th digit, slight erythema surrounding scab) Heme/Lymphatic: no unusual bruising or bleeding, no purpura Psychiatric: normal mood and affect, good judgment and insight FMR H&P: Results - Labs Result Diagrams: 11/18/19 20:14 11/18/19 20:14 Lab results: WBC 8.2 thou/uL (4.8-10.8) 11/18/19 20:14 Hgb 13.2 g/dL (14.0-18.0) L 11/18/19 20:14 Hct 40.3 % (42.0-52.0) L 11/18/19 20:14 MCV 93.8 fL (78.0-98.0) 11/18/19 20:14 Plt Count 195 thou/uL (130-400) 11/18/19 20:14 Neutrophils % 73.0 % (42.0-75.0) 11/18/19 20:14 ESR Westergren 60 mm/hr (Less than 20) 11/18/19 20:14 Sodium 138 mmol/L (136-145) 11/18/19 20:14 Potassium 4.0 mmol/L (3.5-5.1) 11/18/19 20:14 Chloride 107 mmol/L (98-107) 11/18/19 20:14 Carbon Dioxide 23 mmol/L (23-31) 11/18/19 20:14 BUN 25 mg/dL (8.4-25.7) 11/18/19 20:14 Creatinine 1.00 mg/dL (0.7-1.3) 11/18/19 20:14 Glucose 125 mg/dL (83-110) H 11/18/19 20:14 Lactic Acid 2.7 mmol/L (0.5-2.2) H 11/18/19 20:20 Calcium 8.9 mg/dL (7.8-10.44) 11/18/19 20:14 Total Bilirubin 0.3 mg/dL (0.2-1.2) 11/18/19 20:14 AST 28 U/L (5-34) 11/18/19 20:14 ALT 23 U/L (8-55) 11/18/19 20:14 Alkaline Phosphatase 101 U/L (40-110) 11/18/19 20:14 C-Reactive Protein 1.12 mg/dL (= or < 0.5) H 11/18/19 20:14 Serum Total Protein 7.7 g/dL (5.8-8.1) 11/18/19 20:14 Albumin 4.0 g/dL (3.4-4.8) 11/18/19 20:14 - Radiology Interpretation Other Status: report reviewed by me (XRAY Foot: No acute osseous abnormality) FMR H&P: A/P - Problem List (1) HTN (hypertension) Current Visit: No Status: Chronic Code(s): I10 - ESSENTIAL (PRIMARY) HYPERTENSION (2) Tobacco abuse Current Visit: No Status: Chronic Code(s): Z72.0 - TOBACCO USE (3) CAD (coronary artery disease) Current Visit: No Status: Chronic Code(s): I25.10 - ATHSCL HEART DISEASE OF [place] CORONARY ARTERY W/O ANG PCTRS (4) HLD (hyperlipidemia) Current Visit: No Status: Chronic Code(s): E78.5 - HYPERLIPIDEMIA, UNSPECIFIED (5) PVD (peripheral vascular disease) Current Visit: No Status: Chronic Code(s): I73.9 - PERIPHERAL VASCULAR DISEASE, UNSPECIFIED (6) Pulmonary fibrosis Current Visit: No Status: Chronic Code(s): J84.10 - PULMONARY FIBROSIS, UNSPECIFIED - Plan Patient is a 74M with PMHx of severe PVD, HTN, CAD, HLD, chronic neck/back pain , IPF that is admitted for Right foot 5th digit cellulitis vs osteomyelitis #Cellulitis vs osteomyelitis -bunion removal august 2019 -worsening erythema and pain over last 2 weeks -XR demonstrates no osseous abnormality -started on vanc and zosyn in ED -will continue vanc, pharmacy to dose -CRP and ESR elevated -MRI foot to r/o osteomyelitis, will consult surg in am if MRI + for osteo -morphine for pain #HTN -vss, continue home meds #PVD #CAD -continue home meds -likely contributing to clinical picture of worsening foot wound/pain #HLD -continue home meds #IPF -vss, no respiratory distress -continue home meds #Chronic neck/back pain -continue home meds DVT ppx: lovenox Diet: HH Dispo: obs for iv abx, MRI in am to r/o osteomyelitis; will consult gen surg in am if osteo vs likely d/c pt home with abx Code: Full PCP: Yulisa FMR H&P: Upper Level - Pertinent history 74 yo M w/hx of CAD s/p 5v CABG here with complaint of R 5th toe pain. He has known severe PAD and has hx of non healing foot ulcers. He had a debridement of a wound on the lateral side of his R 5th toe on 08/29/20 and since then the wound has not healed. Over the past 2 weeks the wound has had worsening pain and redness. He denies constitutional symptoms. There has been no exudate. In the ED a CRP and ESR were both elevated. WBC count was WNL. He was given Vanc and Zosyn. PMHx CAD PAD IPF Hx of TIA Monoclonal gammopathy Osteoporosis Surgical Hx 5v CABG b/l - Pertinent findings See internal medicine nurse note for full ROS, PE, vitals, and labs ROS General Denies fever or chills HEENT denies sore throat or ear pain CV Denies of CP or palpitations Resp Denies SOB or cough GI Complains of vomiting blood Neuro denies weakness or numbness. Extremities complains of R 5th digit pain and redness PE General A&O x4 HEENT NCAT CV RRR, no murmur Resp crackles throughout b/l Abd Soft, non tender Extremities R lateral 5th digit with erythema and marked TTP. No exudate noted. Black eschar over debridement wound. No pulses palpated in either foot Neuro no focal deficits - Plan Date/Time: 11/18/19 2205 Hero Fry DO, have evaluated this patient and agree with findings/plan as outlined by internal medicine nurse resident. Pertinent changes/additions are listed here. 1.Cellulitis - Admit to obs -Given CRP and ESR, there is significant concern for osteo. Plan for MRI -Continue Vanc -Blood cx pending 2.CAD -Home meds 3.IPF -Home meds, PRN o2 See internal medicine nurse note for management of chronic meds Diet HH Code Full PPx SCD Dispo: pt is in good condition. Pending results of osteo work up, likely length of stay is 2-3 days Addendum - Attending - Attending Attestation Date/Time: 11/18/192022 I personally evaluated the patient and discussed the management with Dr. Bloom. I agree with the History, Examination, Assessment and Plan documented above with any addition or exceptions noted below. The patient presents with right 5th toe pain and redness. He had a procedure with podiatry in August. He has noticed worsening pain and redness. Toe is mildly tender to palpation. ESR and CRP are elevated. Lactic acid is elevated. Will continue IV vancomycin. Get MRI to evaluate for osteomyelitis. Pulses are palpable but faint in lower extremities. PVD is likely playing a role as well. Consult wound care.
[2019-11-18 22:39] LABS: Bacteria/HPF None Seen HPF (None Seen); Bilirubin Negative (Negative); Blood, Urine Trace (Negative); Calcium Oxalate Crystals 3+ HPF (None Seen); Clarity Clear (Clear); Glucose, Urine (Dipstick) 50 mg/dL (Negative); Leukocyte Negative Leu/uL (Negative); Nitrite Negative (Negative); Protein, Urine (Dipstick) 30 mg/dL (Neg-Trace); RBC/HPF 0-3 HPF (0-3); Squamous Epithelial 0-3 HPF (0-3); Urobilinogen Normal mg/dL (Less than 2)
[2019-11-18] MEDS ORDERED: Nicotine 14 MG PATCH TD SCH (23:00)
[2019-11-18 23:20] LABS: Lactic Acid 2.4 mmol/L (0.5-2.2)
[2019-11-19 00:45] VITALS: BMI 21.4
[2019-11-19] MEDS ORDERED: Nitroglycerin 0.4 MG TAB (25 Tab Bottle) SL PRN (00:56)
[2019-11-19] MEDS ORDERED: Acetaminophen 500 MG TAB PO PRN (00:56)
[2019-11-19] MEDS ORDERED: Bisacodyl 5 MG TAB PO PRN (00:56)
[2019-11-19] MEDS ORDERED: Albuterol Sulfate 2.5 mg/3 ml Neb NEB PRN (00:56)
[2019-11-19] MEDS ORDERED: tiZANidine HCl 4 MG TAB PO PRN (00:56)
[2019-11-19] MEDS ORDERED: Morphine 2 MG/ML SYRINGE SLOW IVP PRN (01:12)
[2019-11-19] MEDS ORDERED: Calcium Carbonate 500 MG ChewTAB PO PRN (01:12)
[2019-11-19] MEDS ORDERED: traZODone HCl 50 MG TAB PO SCH (01:45)
[2019-11-19] MEDS ORDERED: Nicotine 14 MG PATCH TD SCH (02:00)
[2019-11-19] MEDS: Morphine 2 MG/ML SYRINGE SLOW IVP PRN ×2 (03:24→15:27)
[2019-11-19] MEDS ORDERED: Morphine 4 MG/ML VIAL SLOW IVP SCH ×2 (05:30)
--- NOTE | 2019-11-19 06:30 | PDOC.FM ---
- Subjective Subjective: Patient was receiving a DuoNeb at the time of evaluation and denied any acute overnight events. His only complaint was persistent pain in his right 5th toe, which improved with position. - Objective Vital Signs & Weight: Vital Signs (12 hours) Temp Pulse Resp BP Pulse Ox 11/19/19 05:17 98.0 F 92 16 131/60 95 11/19/19 00:30 98.5 F 92 18 111/66 94 L Weight Weight 58.559 kg I&O: 11/17/19 11/18/19 11/19/19 06:59 06:59 06:59 Intake Total 510 Output Total 225 Balance 285 Result Diagrams: 11/18/19 20:14 11/18/19 20:14 Phys Exam - Physical Examination Constitutional: NAD HEENT: moist MMs, sclera anicteric, oral pharynx no lesions Neck: supple, full ROM Coarse breath sounds with mild wheezing diffusely - no respiratory distress Cardiovascular: RRR, no significant murmur, no rub Gastrointestinal: soft, non-tender, no distention, positive bowel sounds Musculoskeletal: no edema, pulses present Neurological: non-focal, moves all 4 limbs Psychiatric: normal affect Deviation from normal: Mild erythema of right 5th toe w/o streaking or palpable fluctuance. TTP Dx/Plan (1) Chronic back pain Code(s): M54.9 - DORSALGIA, UNSPECIFIED; G89.29 - OTHER CHRONIC PAIN Status: Acute (2) CAD (coronary artery disease) Code(s): I25.10 - ATHSCL HEART DISEASE OF [place] CORONARY ARTERY W/O ANG PCTRS Status: Chronic (3) Depression Code(s): F32.9 - MAJOR DEPRESSIVE DISORDER, SINGLE EPISODE, UNSPECIFIED Status : Chronic (4) HLD (hyperlipidemia) Code(s): E78.5 - HYPERLIPIDEMIA, UNSPECIFIED Status: Chronic (5) HTN (hypertension) Code(s): I10 - ESSENTIAL (PRIMARY) HYPERTENSION Status: Chronic (6) PVD (peripheral vascular disease) Code(s): I73.9 - PERIPHERAL VASCULAR DISEASE, UNSPECIFIED Status: Chronic - Plan Plan: Patient is a 74 y/o male with PMH significant for severe PVD, HTN, CAD, HLD, chronic neck/back pain, and IPF who presents to the ED foot pain. 1. Cellulitis vs Osteomyelitis -Hx of recent operative procedure - Bunion removal in 09/05 -Worsening erythema and pain for 2 weeks relieved by position -X-Ray (Foot): No osseous abnormality -s/p Vanc and Zosyn in ED - will continue Vanc w/ Pharmacy to dose -CRP: 1.12 -ESR: 60 -MRI (Foot): Pending - will consult Surg in AM if necessary -Morphine PRN for pain #HTN -BP: 131/60 on 11/19 -Will continue home Metoprolol regimen #PVD -Likely contributing factor to #1 -Will continue home medication regimen #CAD -Will continue home medication regimen #HLD -Will continue home medication regimen #IPF -No respiratory distress with adequate O2Sat -Continue home medication regimen #Chronic Pain -Will investigate home pain regimen w/ - patient does not appear to fully understand his current medications PCP: SADA Barrera Code: Full Diet: HH w/ Low Sodium Activity: Ad cassidy DVT PPx: Lovenox Dispo: Patient is currently admitted to the Medical Floor for suspected Cellulitis vs. Osteomyelitis. Continue IV ABx as per above and plan for MRI this AM. If MRI is negative, plan for DC w/ PO ABx. Addendum - Attending - Attending Attestation Date/Time: 11/19/19 4462 I personally evaluated the patient and discussed the management with Dr. Gonzales. I agree with the History, Examination, Assessment and Plan documented above with any addition or exceptions noted below. The patient remains on IV antibiotics. Will get MRI today to look for osteomyelitis of the toe. Continue wound care. Pain is improved a little today.
[2019-11-19] MEDS: Mometasone/Formoterol 120 PUFF INHALER INH SCH ×2 (06:55→19:16)
[2019-11-19] MEDS: Ipratropium Bromide 2.5 ml Neb NEB SCH ×4 (07:03→23:15)
[2019-11-19] MEDS: Venlafaxine XR 37.5 MG CAP PO SCH (08:44)
[2019-11-19] MEDS: guaiFENesin/DM ER PO SCH ×2 (08:44→20:31)
[2019-11-19] MEDS: predniSONE 20 MG TAB PO SCH (08:45)
[2019-11-19] MEDS: Aspirin 325 MG TAB PO SCH (08:45)
[2019-11-19] MEDS: Metoprolol Tartrate 25 MG TAB PO SCH ×2 (08:45→20:32)
[2019-11-19] MEDS: Morphine 4 MG/ML VIAL SLOW IVP SCH ×4 (08:46→20:33)
[2019-11-19] MEDS: Enoxaparin Sodium 40 MG/0.4 ML SYRINGE SC SCH (08:46)
[2019-11-19] MEDS: Vancomycin HCl 1 GM in Premix Bag 1 BAG IVPB SCH ×2 (08:47→20:32)
[2019-11-19] MEDS ORDERED: Enoxaparin Sodium 40 MG/0.4 ML SYRINGE SC SCH ×2 (09:00)
[2019-11-19] MEDS: Nicotine 14 MG PATCH TOP SCH (16:02)
--- NOTE | 2019-11-19 16:12 | MRI ---
Exam: Right lower extremity MRI without and with IV contrast: HISTORY: Right fifth digit wound, concern for osteomyelitis. Area of concern is marked with a vitamin E tablet. FINDINGS: Abnormal T2 and STIR hyperintensity involving the phalanges of the fifth digit without significant ab normal T1 signal evidence for nonspecific osteitis. Minimal plantar soft tissue swelling without evidence for drainable abscess. No evidence for abnormal fluid collection within the metatarsal phala ngeal joint to suggest septic arthritis. Slight heterogeneous signal within the sesamoid bones of the first metatarsophalangeal joint. Arthrosis changes of the toes including the first metatarsophala ngeal joint. IMPRESSION: Evidence for nonspecific osteitis involving the phalanges of the fifth toe without evidence for overt septic arthritis or drainable abscess. No convincing evidence for active osteomyelitis at this time although nonspecific osteitis can progress to osteomyelitis.
[2019-11-19] MEDS: traMADol HCl 50 MG TAB PO PRN (19:55)
[2019-11-19] MEDS: traZODone HCl 50 MG TAB PO SCH (20:30)
[2019-11-19] MEDS: Melatonin 3 MG TAB PO PRN (20:30)
[2019-11-19] MEDS: Rosuvastatin 20 MG TAB PO SCH (20:30)
[2019-11-20] MEDS: Morphine 4 MG/ML VIAL SLOW IVP SCH ×3 (01:00→08:40)
[2019-11-20] MEDS: Piperacillin/Tazobactam 3.375 GM in Sodium Chloride 0.9% 100 ML IVPB SCH ×4 (04:00→19:52)
[2019-11-20] MEDS: traMADol HCl 50 MG TAB PO PRN (04:02)
--- NOTE | 2019-11-20 06:33 | PDOC.FM ---
- Subjective Subjective: Patient was resting comfortably in his bed at the time of evaluation. He denied any acute overnight events such as CP, SOB or worsening pain in his RLE. - Objective Vital Signs & Weight: Vital Signs (12 hours) Temp Pulse Resp BP Pulse Ox 11/20/19 04:52 98.2 F 81 18 130/71 94 L 11/20/19 00:12 97.6 F 80 18 126/63 93 L 11/19/19 23:15 82 16 95 11/19/19 20:43 98.2 F 106 H 21 H 145/84 H 93 L 11/19/19 19:15 80 16 95 Weight Weight 58.559 kg I&O: 11/18/19 11/19/19 11/20/19 06:59 06:59 06:59 Intake Total 510 1880 Output Total 225 650 Balance 285 1230 Result Diagrams: 11/20/19 06:44 11/20/19 07:45 Phys Exam - Physical Examination Constitutional: NAD HEENT: PERRLA, moist MMs, sclera anicteric, oral pharynx no lesions Neck: supple, full ROM Coarse breathe sounds with scattered wheezes Cardiovascular: RRR, no significant murmur, no rub Gastrointestinal: soft, non-tender, no distention, positive bowel sounds Musculoskeletal: no edema, pulses present Neurological: non-focal, moves all 4 limbs Psychiatric: normal affect Deviation from normal: Exam consisted with findings on 11/19 Dx/Plan (1) Chronic back pain Code(s): M54.9 - DORSALGIA, UNSPECIFIED; G89.29 - OTHER CHRONIC PAIN Status: Acute (2) CAD (coronary artery disease) Code(s): I25.10 - ATHSCL HEART DISEASE OF [place] CORONARY ARTERY W/O ANG PCTRS Status: Chronic (3) Depression Code(s): F32.9 - MAJOR DEPRESSIVE DISORDER, SINGLE EPISODE, UNSPECIFIED Status : Chronic (4) HLD (hyperlipidemia) Code(s): E78.5 - HYPERLIPIDEMIA, UNSPECIFIED Status: Chronic (5) HTN (hypertension) Code(s): I10 - ESSENTIAL (PRIMARY) HYPERTENSION Status: Chronic (6) PVD (peripheral vascular disease) Code(s): I73.9 - PERIPHERAL VASCULAR DISEASE, UNSPECIFIED Status: Chronic - Plan Plan: Patient is a 74 y/o male with PMH significant for severe PVD, HTN, CAD, HLD, chronic neck/back pain, and IPF who presents to the ED foot pain. 1. Cellulitis vs Osteomyelitis -Hx of recent operative procedure - Bunion removal in 09/05 -Worsening erythema and pain for 2 weeks relieved by position -X-Ray (Foot): No osseous abnormality -s/p Vanc and Zosyn in ED - will continue -CRP: 1.12 -ESR: 60 -MRI (Foot): Osteitis that could progress to Osteomyelitis - will consult Surgery this AM -Morphine PRN for pain #HTN -BP: 130/71 on 11/20 -Will continue home Metoprolol regimen #PVD -Likely contributing factor to #1 -Will continue home medication regimen #CAD -Will continue home medication regimen #HLD -Will continue home medication regimen #IPF -No respiratory distress with adequate O2Sat -Continue home medication regimen #Chronic Pain -Will investigate home pain regimen w/ - patient does not appear to fully understand his current medications -Takes Tizanidine and Tramadol at home PCP: SADA Barrera Code: Full Diet: HH w/ Low Sodium Activity: Ad cassidy DVT PPx: Lovenox Dispo: Patient is currently admitted to the Medical Floor for suspected Cellulitis vs. Osteomyelitis. MRI equivocal. Will consult Surgery this AM for additional evaluation and need for surgical intervention. Addendum - Attending - Attending Attestation Date/Time: 11/20/19 0289 I personally evaluated the patient and discussed the management with Dr. Gonzales. I agree with the History, Examination, Assessment and Plan documented above with any addition or exceptions noted below. Await GS consultation.
[2019-11-20 06:59] LABS: #Lymphocytes 1.6 thou/uL (1.20-3.40); #Monocytes 0.3 thou/uL (0.11-0.59); #Neutrophils 4.4 thou/uL (1.40-6.50); %Basophils 0.4 % (0.0-1.0); %Eosinophils 0.7 % (0.0-10.0); %Lymphocytes 25.4 % (21.0-51.0); %Monocytes 4.9 % (0.0-10.0); %Neutrophils 68.7 % (42.0-75.0); Hemoglobin 10.9 g/dL (14.0-18.0); Mean Corpuscular HGB CONC 32.4 g/dL (32.0-36.0); Mean Corpuscular Hemoglobin 30.6 pg (27.0-31.0); Mean Corpuscular Volume 94.7 fL (78.0-98.0); Mean Platelet Volume 8.2 fL (7.4-10.4); Platelet Count 156 thou/uL (130-400); RBC Distribution Width 14.5 % (11.5-14.5); Red Blood Cell (RBC) Count 3.57 mill/uL (4.70-6.10); White Blood Cell (WBC) Count 6.4 thou/uL (4.8-10.8)
[2019-11-20] MEDS: Mometasone/Formoterol 120 PUFF INHALER INH SCH ×2 (07:12→20:50)
[2019-11-20] MEDS: Ipratropium Bromide 2.5 ml Neb NEB SCH ×3 (07:17→20:52)
[2019-11-20 08:04] LABS: Vancomycin, Trough 13.4 ug/mL
[2019-11-20 08:36] LABS: Anion Gap 10 mmol/L (10-20); BUN (Urea Nitrogen) 18 mg/dL (8.4-25.7); Calc. Creatinine Clearance 71 mL/min (70-130); Calcium 8.5 mg/dL (7.8-10.44); Carbon Dioxide 27 mmol/L (23-31); Chloride 104 mmol/L (98-107); Estimated GFR-MDRD Greater than 90; Glucose 93 mg/dL (83-110); Potassium 3.9 mmol/L (3.5-5.1); Sodium 137 mmol/L (136-145)
[2019-11-20] MEDS: Venlafaxine XR 37.5 MG CAP PO SCH (08:39)
[2019-11-20] MEDS: guaiFENesin/DM ER PO SCH ×2 (08:39→21:06)
[2019-11-20] MEDS: Metoprolol Tartrate 25 MG TAB PO SCH ×2 (08:39→21:05)
[2019-11-20] MEDS: Enoxaparin Sodium 40 MG/0.4 ML SYRINGE SC SCH (08:40)
[2019-11-20] MEDS: predniSONE 20 MG TAB PO SCH (08:40)
[2019-11-20] MEDS: Aspirin 325 MG TAB PO SCH (08:40)
[2019-11-20] MEDS: Vancomycin HCl 1.25 GM in Sodium Chloride 0.9% 250 ML 250 ML IVPB SCH ×2 (10:48→21:07)
[2019-11-20] MEDS: Nicotine 14 MG PATCH TOP SCH (15:43)
[2019-11-20] MEDS: Morphine 2 MG/ML SYRINGE SLOW IVP PRN ×2 (15:45→21:07)
[2019-11-20] MEDS: traZODone HCl 50 MG TAB PO SCH (21:05)
[2019-11-20] MEDS: Rosuvastatin 20 MG TAB PO SCH (21:05)
[2019-11-20] MEDS: Melatonin 3 MG TAB PO PRN (21:06)
[2019-11-21] MEDS: Ipratropium Bromide 2.5 ml Neb NEB SCH ×4 (00:08→18:27)
[2019-11-21] MEDS: Piperacillin/Tazobactam 3.375 GM in Sodium Chloride 0.9% 100 ML IVPB SCH ×4 (03:50→19:57)
[2019-11-21] MEDS: Morphine 2 MG/ML SYRINGE SLOW IVP PRN ×5 (05:16→19:50)
--- NOTE | 2019-11-21 06:18 | PDOC.FM ---
- Subjective Subjective: Patient was resting comfortably in his hospital bed at the time of evaluation. He denied any acute overnight events such as SOB, CP, fevers, chills or worsening pain. - Objective Vital Signs & Weight: Vital Signs (12 hours) Temp Pulse Resp BP Pulse Ox 11/21/19 03:51 97.9 F 78 18 118/63 92 L 11/21/19 00:43 98.5 F 77 18 127/68 95 11/21/19 00:08 80 16 95 11/20/19 20:50 90 16 96 11/20/19 20:49 90 16 96 11/20/19 20:28 97.5 F L 86 18 151/73 H 94 L Weight Admit Weight 58.559 kg Weight 58.559 kg I&O: 11/19/19 11/20/19 11/21/19 06:59 06:59 06:59 Intake Total 510 1880 800 Output Total 225 650 225 Balance 285 1230 575 Result Diagrams: 11/20/19 06:44 11/20/19 07:45 Phys Exam - Physical Examination Constitutional: NAD HEENT: PERRLA, moist MMs, sclera anicteric, oral pharynx no lesions Neck: supple, full ROM Scratchy breath sounds w/ scattered wheezing Cardiovascular: RRR, no significant murmur, no rub Gastrointestinal: soft, non-tender, no distention, positive bowel sounds Musculoskeletal: no edema, pulses present Stable erythema of right 5th toe - no streaking Neurological: non-focal, moves all 4 limbs Skin: no rash Dx/Plan (1) Chronic back pain Code(s): M54.9 - DORSALGIA, UNSPECIFIED; G89.29 - OTHER CHRONIC PAIN Status: Acute (2) CAD (coronary artery disease) Code(s): I25.10 - ATHSCL HEART DISEASE OF [place] CORONARY ARTERY W/O ANG PCTRS Status: Chronic (3) Depression Code(s): F32.9 - MAJOR DEPRESSIVE DISORDER, SINGLE EPISODE, UNSPECIFIED Status : Chronic (4) HLD (hyperlipidemia) Code(s): E78.5 - HYPERLIPIDEMIA, UNSPECIFIED Status: Chronic (5) HTN (hypertension) Code(s): I10 - ESSENTIAL (PRIMARY) HYPERTENSION Status: Chronic (6) PVD (peripheral vascular disease) Code(s): I73.9 - PERIPHERAL VASCULAR DISEASE, UNSPECIFIED Status: Chronic - Plan Plan: Patient is a 74 y/o male with PMH significant for severe PVD, HTN, CAD, HLD, chronic neck/back pain, and IPF who presents to the ED foot pain. 1. Cellulitis vs Osteomyelitis -Hx of recent operative procedure - Bunion removal in 09/05 -Worsening erythema and pain for 2 weeks relieved by position -X-Ray (Foot): No osseous abnormality -MRI (Foot): Osteitis that could progress to Osteomyelitis -CRP: 1.12 -ESR: 60 -s/p Vanc and Zosyn in ED - will continue -Surgery: Consulted, recs appreciated -Continue home Tramadol regimen w/ Morphine PRN for pain 2.HTN -Well controlled at this time -Will continue home Metoprolol regimen 3. PVD -Likely contributing factor to #1 -Will continue home statin regimen 4. CAD -Will continue home medication regimen 5. HLD -Will continue home medication regimen 6. IPF -No respiratory distress with adequate O2Sat -Continue home medication regimen 7. Chronic Pain -Will investigate home pain regimen w/ - patient does not appear to fully understand his current medications -Medication regimen confirmed with , previous hospitalizations, PCP notes and patient's pharmacy -Continue home medication regimen PCP: SADA Barrera Code: Full Diet: HH w/ Low Sodium Activity: Ad cassidy DVT PPx: Lovenox Dispo: Patient is currently admitted to the Medical Floor for suspected Cellulitis vs. Osteomyelitis with an MRI equivocal. Surgery consulted, recs appreciated - will continue IV ABx for now. Expected LOS > 48H. Addendum - Attending - Attending Attestation Date/Time: 11/21/19 2843 I personally evaluated the patient and discussed the management with Dr. Gonzales. I agree with the History, Examination, Assessment and Plan documented above with any addition or exceptions noted below. Patient is s/p bedside debridement by Dr. Farris. Await his final recs. In light of PVD he has consulted [facility]. Await their input as well.
[2019-11-21] MEDS: Mometasone/Formoterol 120 PUFF INHALER INH SCH ×2 (07:16→18:26)
[2019-11-21] MEDS: Aspirin 325 MG TAB PO SCH (08:16)
[2019-11-21] MEDS: guaiFENesin/DM ER PO SCH ×2 (08:16→20:01)
[2019-11-21] MEDS: Enoxaparin Sodium 40 MG/0.4 ML SYRINGE SC SCH (08:16)
[2019-11-21] MEDS: Metoprolol Tartrate 25 MG TAB PO SCH ×2 (08:17→20:01)
[2019-11-21] MEDS: Venlafaxine XR 37.5 MG CAP PO SCH (08:17)
--- NOTE | 2019-11-21 09:40 | OP ---
DATE OF PROCEDURE: 11/21/2019 PREOPERATIVE DIAGNOSES: Peripheral arterial disease and eschar, right lateral foot near the metatarsophalangeal fifth digit. PROCEDURE PERFORMED: Excision of eschar as described. DESCRIPTION OF PROCEDURE: Bedside procedure: With the patient at bedside, his right foot was prepared with alcohol, and sharp 11 blade excision of the eschar was performed noting intact deep tissues. There are no sinus tracts. No purulence. Band-Aid and antibiotic ointment were applied. The patient tolerated the procedure well. PLAN: Plan at this time is consult Dr. Matos for evaluation of his PAD. He will wash the foot daily with soap and water and apply Band-Aid and antibiotic ointment. Job ID: [id number]
[2019-11-21] MEDS: Vancomycin HCl 1.25 GM in Sodium Chloride 0.9% 250 ML 250 ML IVPB SCH ×2 (09:44→21:42)
--- NOTE | 2019-11-21 10:17 | CON ---
DATE OF CONSULTATION: HISTORY OF PRESENT ILLNESS: Remy Case is a 74-year-old male patient with known PAD and ongoing tobacco abuse, presents with right foot pain. He had a small eschar over his lateral MTP fifth right foot. He has undergone plain x-rays that were without abnormalities and MRI on 11/19/2019 performed in right foot reveals changes of osteitis involving the phalanx of the fifth toe without evidence of septic arthritis or abscess. No convincing evidence for osteomyelitis appreciated. At the bedside, I debrided this eschar and it is very superficial. The patient has had bilateral carotid endarterectomies last year and previous to that coronary artery bypass grafting by Dr. Matos. He states he was told by Dr. Matos that he probably had PAD. The patient has pain in his right fifth toe and second toe on weightbearing. It does not seem to be worse when it is elevated. On exam, he has palpable femoral pulse, nonpalpable popliteal pulse, dopplerable only posterior tibial pulse right and nondopplerable dorsalis pedis pulse. I have contacted Dr. Matos, who will see him. I will let him eat today. There is no indication for surgical intervention at this time. He does; however, need an evaluation for his PAD as his pain may be more related to his PAD. As far as the antibiotics, I think he can be placed on oral antibiotics, probably dual therapy for 2 weeks and I can see him as an outpatient in 2 to 3 weeks. At this point, I will see him as needed this hospitalization. I will have wound care, wash the foot with soap and water daily and apply antibiotic ointment and Band-Aid to the small open wound that was previously covered by the eschar. ALLERGIES: NONE. SOCIAL HISTORY: Tobacco, one-half to one pack per day. Alcohol, rarely. MEDICATIONS: At home, he is on: 1. Tramadol. 2. Ranitidine. 3. Omeprazole. 4. Myrbetriq. 5. Lopressor. 6. Amitriptyline. 7. Tizanidine. 8. Trazodone. 9. Nitrostat. 10. Symbicort inhaler. In the hospital, vancomycin and Zosyn has been ordered, which I would discontinue. PAST SURGICAL HISTORY: I performed a laparoscopic hiatal hernia repair with a Colby fundoplication in 1991. He had a mesh repair of incisional hernia. He had bilateral carotid endarterectomies performed by Dr. Matos in [address] Herrera performed transurethral vaporization of the prostate. He has had lithotripsies by Dr. Uziel Deras. He has had a decompressive cervical laminectomy C3 through C7 by Dr. Washburn in 2005. 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 As noted above in 1991, I performed laparoscopic repair of a hiatal hernia and Colby fundoplication. He suffered a wound infection that resulted in incisional hernia after prolonged coughing episode. This was repaired with mesh eventually. In 1992, he suffered inflammatory process about the mesh, but this resolved. Resection of inflammatory mass subcutaneous tissue around the abdominal incision was performed. Subsequent EGD in 1994 was unremarkable without recurrent hernia. He had a laparoscopic cholecystectomy in 1995, that I performed. PAST MEDICAL HISTORY: Coronary artery disease, PAD, arteriosclerotic disease status post bilateral CEAs, and urolithiasis. PHYSICAL EXAMINATION: VITAL SIGNS: Height 5 feet 5 inches, 129 pounds, and 21 BMI. HEAD, EARS, EYES, NOSE, AND THROAT: Unremarkable. LUNGS: Clear to auscultation. CARDIAC: Regular rate and rhythm without murmur or gallop. ABDOMEN: Soft and nontender. EXTREMITIES: Unremarkable. Palpable femoral pulses bilaterally. Nonpalpable popliteal pulses and nonpalpable pedal pulses. Dopplerable only right posterior tibial and nondopplerable dorsalis pedis right. On the lateral aspect of his fifth MTP, there is a slight amount of granulation tissue without cellulitis. This was sharply debrided after alcohol prep and this is superficial. There are no deep erosions. He has some slight abnormality at the tip of his right second toe. ASSESSMENT AND PLAN: 1. Pain in his right foot with ambulation almost constant regardless of position. He does have PAD. He has normal renal function. I have talked to Dr. Matos, he will see him. We will let the patient eat today and Dr. Matos will see him and plan evaluation subsequently. 2. Tobacco abuse. 3. Recurrent hiatal hernia, he reports this to me. In review of a chest x-ray from December 21, 2018, reveals a large hiatal hernia. A CAT scan from 2013 reveals a large hiatal hernia. No intervention at this time. He is followed by GI. Job ID: [id number]
[2019-11-21] MEDS ORDERED: Triple Antibiotic Oint 1 GM Packet TOP PRN (12:50)
--- NOTE | 2019-11-21 13:07 | CON ---
DATE OF CONSULTATION: HISTORY OF PRESENT ILLNESS: This is a 74-year-old gentleman, who states he has had about a month of pain and slight skin breakdown on his right lateral fifth toe. He presented to the emergency room, is admitted, placed on antibiotics and seen in consultation by Dr. Farris, who did a local debridement, but did not feel there was anything further to be done. I have seen the patient in the past for several interventions as well as for diagnosis of peripheral arterial disease. Initially seen in 2016, he had absent pedal pulses, but present femoral and popliteal pulses. More recently, about a year ago, he had monophasic posterior tibial signals, but really did not have lifestyle limiting claudication. He admitted to claudication in his calves with walking. However, his pulmonary disease was significant enough that also limited his activities. He was diagnosed as having idiopathic pulmonary fibrosis about [address] Cintron and has been treated with inhalers. The patient continues to smoke 1 to 2 cigarettes a day. PAST MEDICAL HISTORY: Includes IPF, carotid artery disease, coronary artery disease, hypertension, dyslipidemia, peripheral vascular disease, hiatal hernia, depression, chronic back pain, and kidney stones. PAST SURGICAL HISTORY: Cholecystectomy, Colby fundoplication, CABG x5 in 2000, C-spine surgery, left carotid in 2016, right carotid in 2018. SOCIAL HISTORY: As noted above. ALLERGIES: NONE KNOWN. CURRENT MEDICATIONS: Included; 1. Ranitidine. 2. Omeprazole. 3. Mirabegron. 4. Lopressor. 5. Elavil. 6. Tizanidine. 7. Trazodone. 8. Symbicort inhaler. PHYSICAL EXAMINATION: GENERAL: Elderly-appearing gentleman, in no distress. VITAL SIGNS: Height 5 feet 5 inches, weight 129. NECK: Healed carotid endarterectomy scars. LUNGS: Bilateral crackles. CARDIAC: Regular rate and rhythm. No murmurs. ABDOMEN: Bruising in his lower abdominal wall with healed incisions and nontender. EXTREMITIES: He has present femoral pulses with present left popliteal and no pedal pulses. He has a small dressing on his right fifth metatarsal head laterally. As mentioned, when seen this summer, he had absent pedal pulses with right Doppler pressure of 150 and the left posterior tibial Doppler signal of 120 with no dorsalis pedis signals and signals were monophasic to biphasic. PLAN: At this time is for angiography and this will be performed tomorrow. Informed consent has been obtained. Job ID: [id number]
[2019-11-21] MEDS ORDERED: Ipratropium Bromide 2.5 ml Neb ONE (14:23)
[2019-11-21] MEDS: Nicotine 14 MG PATCH TOP SCH (14:38)
[2019-11-21] MEDS: traZODone HCl 50 MG TAB PO SCH (20:01)
[2019-11-21] MEDS: Rosuvastatin 20 MG TAB PO SCH (20:01)
[2019-11-21 20:31] LABS: Vancomycin, Trough 18.9 ug/mL
[2019-11-21] MEDS: Lactated Ringer's 1,000 ML IV SCH (21:42)
[2019-11-21] MEDS: Melatonin 3 MG TAB PO PRN (21:45)
[2019-11-22] MEDS: traMADol HCl 50 MG TAB PO PRN (00:06)
[2019-11-22] MEDS: Ipratropium Bromide 2.5 ml Neb NEB SCH ×6 (01:27→23:57)
[2019-11-22] MEDS: Morphine 2 MG/ML SYRINGE SLOW IVP PRN ×4 (02:58→22:57)
[2019-11-22] MEDS: Piperacillin/Tazobactam 3.375 GM in Sodium Chloride 0.9% 100 ML IVPB SCH ×2 (02:59→08:19)
--- NOTE | 2019-11-22 06:19 | PDOC.FM ---
- Subjective Subjective: Patient was resting in his bed receiving a breathing treatment at the time of evaluation. He stated that his pain had worsening somewhat since his debridement yesterday, but felt that it was adequately controlled at the moment. He denied any changes in the quality of the pain, SOB, CP or N/V. - Objective Vital Signs & Weight: Vital Signs (12 hours) Temp Pulse Resp BP Pulse Ox 11/22/19 01:27 98 11/21/19 20:00 96 11/21/19 19:46 98.1 F 84 20 151/74 H 96 11/21/19 18:25 77 16 99 Weight Admit Weight 58.559 kg Weight 58.559 kg I&O: 11/20/19 11/21/19 11/22/19 06:59 06:59 06:59 Intake Total 1880 800 Output Total 650 225 Balance 1230 575 Result Diagrams: 11/20/19 06:44 11/20/19 07:45 Phys Exam - Physical Examination Constitutional: NAD HEENT: moist MMs, sclera anicteric, oral pharynx no lesions Neck: supple, full ROM Scratchy breath sounds w/ scattered wheezes Cardiovascular: RRR, no significant murmur, no rub Gastrointestinal: soft, non-tender, no distention, positive bowel sounds Musculoskeletal: no edema, pulses present Neurological: non-focal, moves all 4 limbs Psychiatric: normal affect, A&O x 3 Deviation from normal: s/p Escharotomy - no purulent drainage or streaking Dx/Plan (1) Chronic back pain Code(s): M54.9 - DORSALGIA, UNSPECIFIED; G89.29 - OTHER CHRONIC PAIN Status: Acute (2) CAD (coronary artery disease) Code(s): I25.10 - ATHSCL HEART DISEASE OF [place] CORONARY ARTERY W/O ANG PCTRS Status: Chronic (3) Depression Code(s): F32.9 - MAJOR DEPRESSIVE DISORDER, SINGLE EPISODE, UNSPECIFIED Status : Chronic (4) HLD (hyperlipidemia) Code(s): E78.5 - HYPERLIPIDEMIA, UNSPECIFIED Status: Chronic (5) HTN (hypertension) Code(s): I10 - ESSENTIAL (PRIMARY) HYPERTENSION Status: Chronic (6) PVD (peripheral vascular disease) Code(s): I73.9 - PERIPHERAL VASCULAR DISEASE, UNSPECIFIED Status: Chronic - Plan Plan: Patient is a 74 y/o male with PMH significant for severe PVD, HTN, CAD, HLD, chronic neck/back pain, and IPF who presents to the ED foot pain. 1. Cellulitis vs Osteomyelitis -Hx of recent operative procedure - Bunion removal in 09/05 -Worsening erythema and pain for 2 weeks relieved by position -X-Ray (Foot): No osseous abnormality -MRI (Foot): Osteitis that could progress to Osteomyelitis -CRP: 1.12 -ESR: 60 -s/p Vanc and Zosyn in ED - will continue -Surgery: Consulted - performed debridement on 11/21 - recs appreciated -CV Surgery: Consulted - will plan for angiography this AM - recs appreciated -Continue home Tramadol regimen w/ Morphine PRN for pain 2.HTN -Well controlled at this time -Will continue home Metoprolol regimen 3. PVD -Likely contributing factor to #1 -RLE Angiography: Pending -Will continue home statin regimen 4. CAD -Will continue home medication regimen 5. HLD -Will continue home medication regimen 6. IPF -No respiratory distress with adequate O2Sat -Continue home medication regimen 7. Chronic Pain -Medication regimen confirmed with , previous hospitalizations, PCP notes and patient's pharmacy -Continue home medication regimen PCP: SADA Barrera Code: Full Diet: HH w/ Low Sodium Activity: Ad cassidy DVT PPx: Lovenox Dispo: Patient is currently admitted to the Medical Floor for suspected Cellulitis vs. Osteomyelitis with an equivocal MRI. Surgery and CV Surgery consulted, recs appreciated - will continue IV ABx for now with planned transition to PO ABx based on Surgery recs. Expected LOS > 48H. Addendum - Attending - Attending Attestation Date/Time: 11/22/19 1317 I personally evaluated the patient and discussed the management with Dr. Gonzales and team. I agree with the History, Examination, Assessment and Plan documented above with any addition or exceptions noted below.
[2019-11-22] MEDS: Mometasone/Formoterol 120 PUFF INHALER INH SCH ×2 (07:46→18:07)
[2019-11-22] MEDS: guaiFENesin/DM ER PO SCH ×2 (08:19→21:00)
[2019-11-22] MEDS: Aspirin 325 MG TAB PO SCH (08:19)
[2019-11-22] MEDS: Metoprolol Tartrate 25 MG TAB PO SCH ×2 (08:19→21:00)
[2019-11-22] MEDS: Venlafaxine XR 37.5 MG CAP PO SCH (08:24)
[2019-11-22] MEDS ORDERED: Iopamidol 370 76% 50 ML VIAL FS ONE (09:06)
[2019-11-22] MEDS: Vancomycin HCl 1.25 GM in Sodium Chloride 0.9% 250 ML 250 ML IVPB SCH (09:49)
[2019-11-22] MEDS ORDERED: Lidocaine 1% (PF) 30 ML VIAL ONE (13:38)
[2019-11-22] MEDS ORDERED: Heparin (Artline) 500 ML ONE (13:38)
[2019-11-22] MEDS ORDERED: Fentanyl 100 MCG/2 ML VIAL ONE (14:57)
[2019-11-22] MEDS ORDERED: Heparin 10,000 UNITS/1 ML VIAL ONE (14:57)
[2019-11-22] MEDS ORDERED: Protamine Sulfate 50 MG/5 ML VIAL ONE (15:35)
--- NOTE | 2019-11-22 15:39 | PQF ---
CLINICAL DOCUMENTATION IMPROVEMENT CLARIFICATION FORM: ICD-10 Updated PLEASE DO AN ADDENDUM TO THE PROGRESS NOTE WITH ANY DOCUMENTATION UPDATES OR ADDITIONS AND CARRY THROUGH TO DC SUMMARY. THANK YOU. DATE: 11/22/2019 ATTN:Dr. Gonzales/ Attending Dr. Huitron Please exercise your independent, professional judgment in responding to the clarification form. Clinical indicators are provided on the bottom of this form for your review Please check appropriate box(s): Status and Severity: Major Depressive Disorder, single episode, unspecified. Chronic. [ ] Mild [ ] Moderate [ ] Severe [ ] With Psychosis [ ] Without Psychosis [ ] In remission [ ] Partial [ ] Full [ ] Major depressive disorder, single episode, unable to further specify severity. [ ] Other diagnosis [ X ] Unable to determine In addition, please specify: Present on Admission (POA): [ X ] Yes [ ] No [ ] Unable to determine For continuity of documentation, please document condition throughout progress notes and discharge summary. Thank You. CLINICAL INDICATORS - SIGNS / SYMPTOMS / LABS / RESULTS AND LOCATION IN EMR PN 2: DX/Plan: Depression. Major depressive disorder, single episode, unspecified. Chronic RISKS: ER Record 11/18: Psychiatric Hx: no history of suicidal ideations, No hx of SI; No hx of hallucinations. No hx of homicidal ideations, No hx of violence towards others, Psychiatric hx includes, depression. Verified on 07/06/18. PN 2/2: DX/Plan: Depression TREATMENT: MAR: Order 2: Effexor XR 37.5 mg po Daily. MAR: Order 22: Trazodone HCL 50 mg po HS Thank you, Melissa (This form is maintained as a part of the permanent medical record) 2015 [employer]. All Rights Reserved Melissa Frausto RN, BSN [email or web address] Office: [phone] [facility]
[2019-11-22] MEDS ORDERED: Clopidogrel Bisulfate 300 MG TAB ONE (15:40)
[2019-11-22] MEDS ORDERED: Morphine 2 MG/ML SYRINGE ONE (16:12)
[2019-11-22] MEDS: Nicotine 14 MG PATCH TOP SCH (17:21)
[2019-11-22] MEDS: Lactated Ringer's 1,000 ML IV SCH (17:50)
[2019-11-22] MEDS: Rosuvastatin 20 MG TAB PO SCH (21:00)
[2019-11-22] MEDS: traZODone HCl 50 MG TAB PO SCH (21:00)
--- NOTE | 2019-11-23 02:14 | OP ---
DATE OF PROCEDURE: 11/22/2019 PREOPERATIVE DIAGNOSIS: Rest pain, right foot. PROCEDURES PERFORMED: Aortogram and right lower extremity runoff with angioplasty of the right superficial femoral artery with a 3 x 150 and then a 4 x 150 Lutonix balloon. ANESTHESIA: Local with sedation. CONTRAST: 60 mL. FLUOROSCOPY: 17.9 minutes. FINDINGS: The patient had a single left renal artery visualized without stenosis. The right renal artery was not clearly visualized. His aorta had significant atherosclerosis without narrowing. He had calcification of both iliac systems with about a 50% proximal right external iliac artery. During the procedure, the patient had a slight dissection of the right common iliac artery that was not flow-limiting. The right superficial femoral artery had very sluggish flow with collateralization around a mid occlusion of short distance. However, the vessel was rather diffusely diseased from about 5 cm distal to the takeoff until the adductor canal. He had single-vessel runoff to the right foot via a peroneal artery with anterior and posterior tibial not visualizing. DESCRIPTION OF PROCEDURE: After adequate local anesthesia had been placed in the left groin, ultrasound-guided puncture on 1st stick was performed and a wire advanced up into the aorta. Contra catheter was then placed after flush injection of the sheath. Aortogram was obtained and the Contra catheter was manipulated into the common iliac artery. However, a wire would not easily go and on 1st pass, probably a slight subintimal dissection was carried out. A Glidewire was then used to reenter this vessel and the Contra catheter was then advanced into the common femoral artery and runoff obtained. A magic Torque wire was then exchanged after getting the Bentson wire and a long [place] catheter into the popliteal artery and over this a 6-[place] Destination sheath was advanced after heparinization. A 3 x 150 mustang balloon was inflated with improvement in results, but still significant disease. A 4 x 150 Lutonix balloon was then inflated for 3 minutes and completion angiography showed much better flow with residual 50% lesions. The runoff was intact to the foot via the peroneal artery. Sheaths to be removed after protamine to partially reverse the heparin. Job ID: [id number]
[2019-11-23] MEDS: Morphine 2 MG/ML SYRINGE SLOW IVP PRN ×6 (03:30→23:37)
--- NOTE | 2019-11-23 06:03 | PDOC.FM ---
- Subjective Subjective: Patient was resting comfortably in his hospital bed at the time of evaluation. He denied any acute overnight events such as CP or SOB, but stated that his RLE pain was about the same as the day prior. - Objective Vital Signs & Weight: Vital Signs (12 hours) Temp Pulse Resp BP Pulse Ox 11/23/19 04:00 98.2 F 79 20 107/66 98 11/22/19 23:57 96 11/22/19 22:56 97.9 F 87 16 114/72 93 L 11/22/19 20:30 98.1 F 81 18 117/72 94 L 11/22/19 20:00 90 16 104/68 95 11/22/19 19:18 98.0 F 82 18 129/81 95 11/22/19 18:30 71 16 138/63 97 11/22/19 18:05 82 18 96 Weight Admit Weight 58.559 kg Weight 58.559 kg I&O: 11/21/19 11/22/19 11/23/19 06:59 06:59 06:59 Intake Total 800 800 Output Total 225 700 Balance 575 100 Result Diagrams: 11/20/19 06:44 11/20/19 07:45 Phys Exam - Physical Examination Constitutional: NAD HEENT: moist MMs, sclera anicteric, oral pharynx no lesions Neck: supple, full ROM Respiratory: no wheezing, no rales, no rhonchi, clear to auscultation bilateral Patient was receiving a breathing treatment Cardiovascular: RRR, no significant murmur, no rub Gastrointestinal: soft, non-tender, no distention, positive bowel sounds Musculoskeletal: no edema Pulses absent at Right Posterior Tibial, Dorsalis Pedis and Popliteal Arter Neurological: non-focal, moves all 4 limbs Psychiatric: normal affect Skin: no rash Deviation from normal: Well healing area of debridement on RLE Dx/Plan (1) Chronic back pain Code(s): M54.9 - DORSALGIA, UNSPECIFIED; G89.29 - OTHER CHRONIC PAIN Status: Acute (2) CAD (coronary artery disease) Code(s): I25.10 - ATHSCL HEART DISEASE OF [place] CORONARY ARTERY W/O ANG PCTRS Status: Chronic (3) Depression Code(s): F32.9 - MAJOR DEPRESSIVE DISORDER, SINGLE EPISODE, UNSPECIFIED Status : Chronic (4) HLD (hyperlipidemia) Code(s): E78.5 - HYPERLIPIDEMIA, UNSPECIFIED Status: Chronic (5) HTN (hypertension) Code(s): I10 - ESSENTIAL (PRIMARY) HYPERTENSION Status: Chronic (6) PVD (peripheral vascular disease) Code(s): I73.9 - PERIPHERAL VASCULAR DISEASE, UNSPECIFIED Status: Chronic - Plan Plan: Patient is a 74 y/o male with PMH significant for severe PVD, HTN, CAD, HLD, chronic neck/back pain, and IPF who presents to the ED foot pain. 1. PAD vs. Cellulitis -Hx of recent operative procedure - Bunion removal in 09/05 -Worsening erythema and pain for 2 weeks relieved by position -X-Ray (Foot): No osseous abnormality -MRI (Foot): Osteitis that could progress to Osteomyelitis -CRP: 1.12 -ESR: 60 -s/p Vanc and Zosyn in ED - DC'd -Surgery: Consulted - performed debridement on 11/21 - recs appreciated -CV Surgery: Consulted - performed angioplasty on 11/22 - recs appreciated -Continue home Tramadol regimen w/ Morphine PRN for pain 2.HTN -Well controlled at this time -Will continue home Metoprolol regimen 3. PVD -See #1 -Will continue home statin regimen 4. CAD -Will continue home medication regimen 5. HLD -Will continue home medication regimen 6. IPF -No respiratory distress with adequate O2Sat -Continue home medication regimen 7. Chronic Pain -Medication regimen confirmed with , previous hospitalizations, PCP notes and patient's pharmacy -Continue home medication regimen PCP: SADA Barrera Code: Full Diet: HH w/ Low Sodium Activity: Ad cassidy DVT PPx: Lovenox Dispo: Patient is currently admitted to the Medical Floor following a localized debridement and subsequent angioplasty following a CC of right foot pain. Surgery and CV Surgery consulted, recs appreciated - will likely be ready for DC w/ PO ABx and close follow-up outpatient. Expected LOS < 24H. Addendum - Attending - Attending Attestation Date/Time: 11/23/19 [id number] I personally evaluated the patient and discussed the management with Dr. Gonzales. I agree with the History, Examination, Assessment and Plan documented above with any addition or exceptions noted below. S/p RLE angioplasty. Await final recs form CVSx. Abx per GS. Likely d/c today.
[2019-11-23] MEDS: Mometasone/Formoterol 120 PUFF INHALER INH SCH ×2 (08:11→18:06)
[2019-11-23] MEDS: Aspirin 81 mg Enteric Coated Tablet PO SCH (08:23)
[2019-11-23] MEDS: Clopidogrel Bisulfate 75 MG TAB PO SCH (08:23)
[2019-11-23] MEDS: Venlafaxine XR 37.5 MG CAP PO SCH (08:23)
[2019-11-23] MEDS: Nicotine 14 MG PATCH TOP SCH (08:23)
[2019-11-23] MEDS: traMADol HCl 50 MG TAB PO PRN ×2 (08:24→15:13)
[2019-11-23] MEDS: Metoprolol Tartrate 25 MG TAB PO SCH ×2 (08:24→20:00)
[2019-11-23] MEDS: Ipratropium Bromide 2.5 ml Neb NEB SCH (08:42)
[2019-11-23] MEDS: guaiFENesin/DM ER PO SCH ×2 (10:56→20:00)
[2019-11-23] MEDS: Lactated Ringer's 1,000 ML IV SCH (12:49)
[2019-11-23] MEDS: Acetaminophen 325 MG TAB PO PRN (15:10)
--- NOTE | 2019-11-23 19:34 | PRG ---
DATE OF SERVICE: 11/23/2019 Remy Case underwent aortogram with runoff by Dr. Matos yesterday, he had right SFA stenosis undergoing FINANCIAL ECONOMIST. He had peroneal artery runoff without visualization of the posterior anterior tibial artery. His right foot wound is stable. At this point, I would recommend he wash his right foot wound with soap and water, dry it, and apply antibiotic ointment and a Band-Aid. I will see him as needed this hospitalization. He should follow up in my office in 2 to 3 weeks sooner as needed. The patient does not really need any further antibiotic treatment or antibiotics could be given for 5 days, but this is questionable. The patient should follow up with Dr. Farris in 2 to 3 weeks. An outpatient followup with Dr. Matos in the next 3 to 4 weeks per him. The patient is stable to be discharged home with outpatient care and followup. Job ID: [id number]
[2019-11-23] MEDS: Rosuvastatin 20 MG TAB PO SCH (20:00)
[2019-11-23] MEDS: traZODone HCl 50 MG TAB PO SCH (20:01)
[2019-11-24] MEDS: Morphine 2 MG/ML SYRINGE SLOW IVP PRN (04:24)
--- NOTE | 2019-11-24 06:34 | PDOC.FM ---
- Subjective Subjective: Patient was resting comfortably in his hospital bed at the time of evaluation. He denied any acute overnight events, and his only complaint was mildly worsening pain in his RLE. - Objective Vital Signs & Weight: Vital Signs (12 hours) Temp Pulse Resp BP Pulse Ox 11/24/19 04:15 98.3 F 95 16 149/69 H 92 L 11/24/19 00:32 98 11/23/19 20:00 94 L 11/23/19 19:59 97.8 F 79 18 152/76 H 94 L Weight Admit Weight 58.559 kg Weight 58.559 kg I&O: 11/22/19 11/23/19 11/24/19 06:59 06:59 06:59 Intake Total 1880 360 Output Total 1300 550 Balance 580 -190 Result Diagrams: 11/20/19 06:44 11/20/19 07:45 Phys Exam - Physical Examination Constitutional: NAD HEENT: moist MMs, sclera anicteric, oral pharynx no lesions Neck: supple, full ROM Respiratory: no rales, no rhonchi Mild wheezing Cardiovascular: RRR, no significant murmur, no rub Gastrointestinal: soft, non-tender, no distention, positive bowel sounds Musculoskeletal: no edema, pulses present +2 pulses in Radial Arteries - Unable to palpate Dorsalis Pedis / Post. Tib Neurological: non-focal, moves all 4 limbs Psychiatric: normal affect Deviation from normal: Erythema reduced over right 5th toe - no purulent drainage or streaking Dx/Plan (1) Chronic back pain Code(s): M54.9 - DORSALGIA, UNSPECIFIED; G89.29 - OTHER CHRONIC PAIN Status: Acute (2) CAD (coronary artery disease) Code(s): I25.10 - ATHSCL HEART DISEASE OF [place] CORONARY ARTERY W/O ANG PCTRS Status: Chronic (3) Depression Code(s): F32.9 - MAJOR DEPRESSIVE DISORDER, SINGLE EPISODE, UNSPECIFIED Status : Chronic (4) HLD (hyperlipidemia) Code(s): E78.5 - HYPERLIPIDEMIA, UNSPECIFIED Status: Chronic (5) HTN (hypertension) Code(s): I10 - ESSENTIAL (PRIMARY) HYPERTENSION Status: Chronic (6) PVD (peripheral vascular disease) Code(s): I73.9 - PERIPHERAL VASCULAR DISEASE, UNSPECIFIED Status: Chronic - Plan Plan: Patient is a 74 y/o male with PMH significant for severe PVD, HTN, CAD, HLD, chronic neck/back pain, and IPF who presents to the ED foot pain. 1. PAD -Hx of recent operative procedure - Bunion removal in 09/05 -Worsening erythema and pain for 2 weeks relieved by position -X-Ray (Foot): No osseous abnormality -MRI (Foot): Osteitis that could progress to Osteomyelitis - equivocal -CRP: 1.12 -ESR: 60 -s/p Vanc and Zosyn in ED - DC'd -Surgery: Consulted - performed debridement on 11/21 - recs appreciated -CV Surgery: Consulted - performed angioplasty on 11/22 - recs appreciated -Continue home Tramadol regimen w/ Morphine PRN for pain 2.HTN -Well controlled at this time -Will continue home Metoprolol regimen 3. PVD -See #1 -Will continue home statin regimen 4. CAD -Will continue home medication regimen 5. HLD -Will continue home medication regimen 6. IPF -No respiratory distress with adequate O2Sat -Continue home medication regimen 7. Chronic Pain -Medication regimen confirmed with , previous hospitalizations, PCP notes and patient's pharmacy -Continue home medication regimen PCP: SADA Barrera Code: Full Diet: HH w/ Low Sodium Activity: Ad cassidy DVT PPx: Lovenox Dispo: Patient is currently admitted to the Medical Floor following a localized debridement and subsequent angioplasty following a CC of right foot pain. Surgery and CV Surgery consulted, recs appreciated - will likely be ready for DC this AM w/ close follow-up outpatient. Expected LOS < 24H. Addendum - Attending - Attending Attestation Date/Time: 11/24/19 2048 I personally evaluated the patient and discussed the management with Dr. Gonzales. I agree with the History, Examination, Assessment and Plan documented above with any addition or exceptions noted below. Doing well, ok for d/c per CVS and GS.
[2019-11-24] MEDS: Mometasone/Formoterol 120 PUFF INHALER INH SCH (06:45)
[2019-11-24] MEDS: traMADol HCl 50 MG TAB PO PRN (07:43)
[2019-11-24] MEDS: Acetaminophen 325 MG TAB PO PRN ×2 (07:44→12:54)
[2019-11-24] MEDS: guaiFENesin/DM ER PO SCH (07:45)
[2019-11-24] MEDS: Venlafaxine XR 37.5 MG CAP PO SCH (07:45)
[2019-11-24] MEDS: Metoprolol Tartrate 25 MG TAB PO SCH (07:45)
[2019-11-24] MEDS: Aspirin 81 mg Enteric Coated Tablet PO SCH (07:45)
[2019-11-24] MEDS: Clopidogrel Bisulfate 75 MG TAB PO SCH (07:45)
[2019-11-24 09:11] VITALS: BP 133/66; TEMP 98.4
--- NOTE | 2019-11-25 01:41 | DIS ---
DATE OF ADMISSION: 11/18/2019 DATE OF DISCHARGE: 11/24/2019 RESIDENT: Gurwinder Gonzales MD. ADMITTING ATTENDING: Rosa Elena Alvares MD. DISCHARGE ATTENDING: Lee Huitron MD. CONSULTATION: Dr. Josue Matos, Cardiovascular Surgery. PROCEDURES: 1. Three-view foot x-ray of the right foot demonstrating no acute osseous abnormality. 2. Lower extremity MRI of the foot showing evidence for nonspecific osteitis involving the phalanges of the 5th toe of the right foot without evidence of overt septic arthritis or drainable abscess. No convincing evidence for acute osteomyelitis at this time, although some nonspecific osteitis can progress to osteomyelitis. 3. Escharectomy performed on 11/21/[address] Everton Farris. 4. Arteriogram with right lower extremity runoff with angioplasty of the right superficial femoral artery performed on 11/22/2019. PRIMARY DIAGNOSIS: Peripheral arterial disease leading to pain of the right 5th toe secondary to demand ischemia. SECONDARY DIAGNOSES: 1. Hypertension. 2. Peripheral vascular disease. 3. Coronary artery disease. 4. Hyperlipidemia. 5. Interstitial pulmonary fibrosis. 6. Chronic pain of the back and neck. DISCHARGE MEDICATIONS: None. DISCONTINUED MEDICATIONS: 1. Acetaminophen 650 mg p.o. q.4 hours. 2. DuoNeb 3 mL q.6h hours. 3. Aspirin 81 mg p.o. daily. 4. Plavix 75 mg p.o. daily. 5. Mucinex 2 tabs p.o. q.12 hours. 6. Melatonin 6 mg p.o. nightly. 7. Metoprolol 12.5 mg p.o. b.i.d. 8. Dulera 2 puffs b.i.d. 9. Morphine 2 mg slow IV push. 10. Triple antibiotic therapy. 11. Nicotine patch 14 mg q.24 hours. 12. Crestor 20 mg p.o. daily. 13. Tizanidine 4 mg p.o. b.i.d. 14. Tramadol 50 mg p.o. q.8 hours. 15. Trazodone 50 mg p.o. daily. 16. Venlafaxine 37.5 mg p.o. daily. DISCHARGE MEDICATIONS: 1. Clopidogrel 75 mg p.o. daily. 2. Rosuvastatin 20 mg p.o. daily. HISTORY OF PRESENT ILLNESS AND HOSPITAL COURSE: The patient is a 74-year-old male with a past medical historysignificant for severe peripheral vascular disease, hypertension, coronary artery disease, hyperlipidemia, chronic neck, back pain, and interstitial pulmonary fibrosis that presents to the ED for worsening pain of his 5th right toe. The patient reportedly had a bunion removed in mid August 2019, but reports that for the past 2 weeks the area has become slightly erythematous and progressively painful. He reports subjective fever and chills over the last few days. He also had a significant history of peripheral arterial disease and had a 5 vessel bypass in 2000 and bilateral carotid endarterectomies. X-ray performed at that time was equivocal. However, MRI performed revealed possible osteomyelitis described as osteitis that can progress to osteomyelitis. As such the patient was started on IV antibiotics, Zosyn 4.5 g q.6 hours and vancomycin 1 g q.12 hours and was subsequently transitioned to p.o. Bactrim and ciprofloxacin. However, a cardiovascular surgery consult was initiated that indicated severe arterial disease likely causative of the patient's pain in his right toe secondary to ischemia and angioplasty was performed, the results of which are documented elsewhere and the patient was subsequently prepped for discharge. Prior to discharge, the patient's vital signs were recorded as temperature 98.4, pulse 73, respirations 20, blood pressure 133/66, oxygen saturation 93% on room air. LABORATORY DATA: Revealed a white blood cell count of 6.4, hemoglobin 10.9, hematocrit 33.8, platelet count 156. Coagulation panel revealed an activated clotting time of 148. Chem panel revealed a sodium of 137, potassium 3.9, chloride 104, carbon dioxide 27, BUN 18, creatinine 0.78. Lactic acid 2.7 on presentation. C-reactive protein 1.12 and ESR of approximately 60 as reported by the resident at night team. Urinalysis demonstrated trace ketones, trace blood, trace WBCs and trace calcium oxalate crystals as well as hyaline casts, however, no nitrate or leukocyte esterase was detected. DISPOSITION: Stable. DISCHARGE INSTRUCTIONS: Location: Home. Diet: Heart healthy. Activity: As tolerated. Followup: The patient was encouraged to follow up with his primary care provider in 2 weeks as [address] Dr. Everton Farris in clinic in 2 weeks and lastly follow up with Dr. Josue Matos in clinic in 3 to 4 weeks in order to discuss his most recent hospitalization. Job ID: [id number]
== END 2019-11-24 15:12 | disposition home or self-care (01) | DRG 254 ==
LOC: ERS 19:15 → OBSVTOIN 21:04 → INTOOBSV 21:04 → T4-A 21:04 → ERS 23:57
PROVIDERS: ADMIT Family Medicine; ATTEND Family Medicine
PROC: 0HBMXZZ Excision of Right Foot Skin, External Approach (ICD-10-PCS; 2019-11-21)
PROC: B41D1ZZ Fluoroscopy of Aorta and Bilateral Lower Extremity Arteries using Low Osmolar Contrast (ICD-10-PCS; principal; 2019-11-22)
PROC: B41G1ZZ Fluoroscopy of Left Lower Extremity Arteries using Low Osmolar Contrast (ICD-10-PCS; 2019-11-22)
PROC: B41F1ZZ Fluoroscopy of Right Lower Extremity Arteries using Low Osmolar Contrast (ICD-10-PCS; 2019-11-22)
PROC: 047K3Z1 Dilation of Right Femoral Artery using Drug-Coated Balloon, Percutaneous Approach (ICD-10-PCS; 2019-11-22)
PROC: 047M3Z1 Dilation of Right Popliteal Artery using Drug-Coated Balloon, Percutaneous Approach (ICD-10-PCS; 2019-11-22)
DX: I70.291 Other atherosclerosis of native arteries of extremities, right leg (principal); I10 Essential (primary) hypertension; I25.10 Atherosclerotic heart disease of native coronary artery without angina pectoris; E78.5 Hyperlipidemia, unspecified; J84.10 Pulmonary fibrosis, unspecified; F32.9 Major depressive disorder, single episode, unspecified; G89.29 Other chronic pain; K44.9 Diaphragmatic hernia without obstruction or gangrene; Z86.73 Personal history of transient ischemic attack (TIA), and cerebral infarction without residual deficits; Z87.891 Personal history of nicotine dependence; Z95.1 Presence of aortocoronary bypass graft
CPT/HCPCS: 36415; 37224; 64483; 76942; 80048; 80053; 80202; 81003; 81015; 83605; 85025; 85347; 85652; 86140; 87040; 87149; 94640; 96365; 96366; 96367; 96375; C1725; C1769; C1887; C2623; J1040; J1644; J1650; J2001; J2270; J2543; J2720; J3010; J3370; J3490; J7050; J7512; J7620; Q9967; S0020

== ENCOUNTER 2019-12-12 21:27 | Emergency (ER) | payer MEDICARE, MEDICAID | END 2019-12-12 23:43 | disposition left against medical advice (07) | LOC: ERS 21:27 | DX: Z53.21 Procedure and treatment not carried out due to patient leaving prior to being seen by health care provider (principal) ==

== ENCOUNTER 2019-12-18 06:03 | Inpatient (IN) | payer MEDICARE, MEDICAID ==
[2019-12-15 12:03] VITALS: BMI 19.7
--- NOTE | 2019-12-17 10:36 | HP ---
HISTORY OF PRESENT ILLNESS: Remy Case is a 74-year-old male patient with ischemic rest pain in right foot, underwent aortogram runoff with Dr. Matos. He is noted to have some non flow-limiting disease in his calcified iliac system, but had a right SFA stenosis, undergoing DITCH WORKER. He has single peroneal vessel runoff to his foot. He continues to have pain in his foot. The pain is intolerable, is seeing Dr. Matos. There is nothing else Dr. Matos can do. Plan at this time is for right [id number] amputation. He understands risks and benefits and consents. ALLERGIES: NONE. SOCIAL HISTORY: Tobacco 1/2 pack per day to 1 pack per day. Alcohol rarely. MEDICATIONS: 1. Tramadol. 2. Ranitidine. 3. Omeprazole. 4. Myrbetriq. 5. Lopressor. 6. Amitriptyline. 7. Tizanidine. 8. Trazodone. 9. Nitrostat. 10. Symbicort inhaler. PAST SURGICAL HISTORY: Laparoscopic hiatal hernia repair with Colby fundoplication in 1991, mesh repair of incisional hernia. Bilateral carotid endarterectomies performed by Dr. Matos in [address] Herrera performed TURP, lithotripsies by Dr. Deras, decompression cervical laminectomy C3, C7, Dr. Washburn in 2005. Coronary artery bypass grafting post subendocardial myocardial infarction five vessel with internal mammary and anterior descending artery on 04/18/2001. Incisional hernia repair with mesh in 1992, inflammatory process about the mesh, resolved, resection of inflammatory mass subcutaneous tissue around the abdominal incision was performed. Subsequent EGD in 1994, was unremarkable without recurrent hernia and with intact Colby. Laparoscopic cholecystectomy in 1995, I performed. PAST MEDICAL HISTORY: Stable coronary artery disease, PAD, arteriosclerotic vascular disease with rest pain, right foot, bilateral carotid endarterectomies, urolithiasis, ongoing tobacco abuse. REVIEW OF SYSTEMS: Ten-point noncontributory. Cardiac asymptomatic. PHYSICAL EXAMINATION: VITAL SIGNS: Weight 122 pounds, height 64 inches, blood pressure 90/52, heart rate 100, temperature 98.6 degrees. HEAD, EARS, EYES, NOSE, AND THROAT: Unremarkable. LUNGS: Clear to auscultation. CARDIAC: Regular rhythm without murmur or gallop. ABDOMEN: Soft, nontender. EXTREMITIES: Ischemic right foot, palpable femoral pulses bilaterally. Nonpalpable popliteal pulses. Dopplerable only right posterior tibial pulse. Lateral aspect of right 5th MTP, short amount of granulation tissue without cellulitis. ASSESSMENT: Peripheral artery disease, arteriosclerotic disease with rest pain in right foot and nonhealing wound, not amenable to revascularization. He has seen Dr. Matos. PLAN: Right BKA. He understands risks and benefits, consents. Job ID: [id number]
[2019-12-18] MEDS ORDERED: Acetaminophen 500 MG TAB ONE (06:13)
[2019-12-18] MEDS ORDERED: Ketorolac Tromethamine 30 MG/ML VIAL ONE (06:13)
[2019-12-18] MEDS ORDERED: Midazolam HCl 2 mg/2 ml Vial ONE (06:31)
[2019-12-18] MEDS ORDERED: Fentanyl 100 MCG/2 ML VIAL ONE ×3 (06:31→09:21)
[2019-12-18 06:43] LABS: #Eosinphils 0.1 thou/uL (0.0-0.7); #Lymphocytes 1.3 thou/uL (1.20-3.40); #Monocytes 0.2 thou/uL (0.11-0.59); #Neutrophils 4.5 thou/uL (1.40-6.50); %Basophils 0.1 % (0.0-1.0); %Eosinophils 1.2 % (0.0-10.0); %Lymphocytes 20.9 % (21.0-51.0); %Monocytes 3.8 % (0.0-10.0); %Neutrophils 74.1 % (42.0-75.0); Hemoglobin 12.1 g/dL (14.0-18.0); Mean Corpuscular HGB CONC 33.3 g/dL (32.0-36.0); Mean Corpuscular Hemoglobin 31.4 pg (27.0-31.0); Mean Corpuscular Volume 94.4 fL (78.0-98.0); Mean Platelet Volume 7.8 fL (7.4-10.4); Platelet Count 142 thou/uL (130-400); RBC Distribution Width 15.1 % (11.5-14.5); Red Blood Cell (RBC) Count 3.84 mill/uL (4.70-6.10); White Blood Cell (WBC) Count 6.1 thou/uL (4.8-10.8)
[2019-12-18 07:04] LABS: Anion Gap 14 mmol/L (10-20); BUN (Urea Nitrogen) 17 mg/dL (8.4-25.7); Calc. Creatinine Clearance 57 mL/min (70-130); Calcium 8.6 mg/dL (7.8-10.44); Carbon Dioxide 25 mmol/L (23-31); Chloride 104 mmol/L (98-107); Estimated GFR-MDRD 81; Glucose 112 mg/dL (83-110); Potassium 3.9 mmol/L (3.5-5.1); Sodium 139 mmol/L (136-145)
[2019-12-18] MEDS ORDERED: Propofol 500 MG/50 ML VIAL ONE (07:36)
[2019-12-18] MEDS ORDERED: Phenylephrine 10 MG/ML VIAL ONE (07:40)
[2019-12-18] MEDS ORDERED: Promethazine HCl 25 MG/ML VIAL IM PRN (08:26)
[2019-12-18] MEDS ORDERED: PACU-Morphine 4MG/ML VIAL SLOW IVP PRN (08:26)
[2019-12-18] MEDS ORDERED: Meperidine HCl/PF 25 MG/ML VIAL SLOW IVP PRN (08:26)
[2019-12-18] MEDS ORDERED: Promethazine HCl 25 MG/ML VIAL SLOW IVP PRN (08:26)
[2019-12-18] MEDS ORDERED: Ondansetron ODT 4 MG TAB PO PRN (08:50)
[2019-12-18] MEDS ORDERED: Lorazepam 2 MG/ML VIAL SLOW IVP PRN (08:50)
[2019-12-18] MEDS ORDERED: hydrALAZINE 20 MG/ML VIAL SLOW IVP PRN (08:50)
[2019-12-18] MEDS ORDERED: HYDROcodone/Acetaminophen 5/325 mg Tablet PO PRN (08:57)
[2019-12-18] MEDS ORDERED: traMADol HCl 50 MG TAB PO PRN ×2 (08:57→09:01)
[2019-12-18] MEDS ORDERED: Famotidine 20 MG TAB PO SCH (09:00)
[2019-12-18] MEDS ORDERED: PROPOFOL 200 MG/20 ML VIAL ONE (09:22)
[2019-12-18] MEDS ORDERED: PHENYLEPHRINE-NS 100 MCG/ML 10 ML SYRINGE ONE (09:22)
[2019-12-18] MEDS ORDERED: Bupivacaine HCl 0.5%/Epinephrine 1:200,000/PF 30 ml Vial ONE (09:22)
[2019-12-18] MEDS ORDERED: hydrALAZINE 20 MG/ML VIAL ONE (10:02)
[2019-12-18] MEDS ORDERED: Nitroglycerin 0.4 MG TAB (25 Tab Bottle) SL PRN (11:36)
[2019-12-18] MEDS: Polyethylene Glycol 3350 17 GM Packet PO SCH (11:54)
[2019-12-18] MEDS: Gabapentin 300 MG CAP PO SCH ×3 (11:54→21:31)
[2019-12-18] MEDS: HYDROcodone/Acetaminophen 5/325 mg Tablet PO PRN (14:42)
--- NOTE | 2019-12-18 14:46 | OP ---
DATE OF PROCEDURE: 12/18/2019 PREOPERATIVE DIAGNOSIS: Arteriosclerotic peripheral arterial disease with ischemic rest pain, nonhealing wound, right foot, and vascular disease not amenable to interventional revascularization nor surgical (evaluated by Dr. Josue Matos prior). POSTOPERATIVE DIAGNOSIS: Arteriosclerotic peripheral arterial disease with ischemic rest pain, nonhealing wound, right foot, and vascular disease not amenable to interventional revascularization nor surgical (evaluated by Dr. Josue Matos prior). PROCEDURE PERFORMED: Right below-knee amputation. ANESTHESIA: Regional/TIVA. DESCRIPTION OF PROCEDURE: The patient was taken to the operating room where under the above-mentioned anesthetic, right lower extremity was prepared with ChloraPrep and draped in routine fashion. Right below-knee amputation performed with a long posterior flap incision, carried down through skin and subcutaneous tissue and fascia, muscle layers. Dividing muscle layers with the cautery and vascular bundles between clamps and 2-0 silk ties. Tibia cleared the periosteum proximally, transected with the Gigli saw and bevelling the anterior edge cephalad and smoothened edges with a rasp. Fibula cut 1 inch above the cut edge of the tibia with a bone cutter. Wound irrigated, good hemostasis obtained. Fascia approximated with 2-0 Vicryl, skin with gulshan. Sterile dressing applied. Job ID: [id number]
[2019-12-18] MEDS: traMADol HCl 50 MG TAB PO PRN ×2 (17:51→21:39)
[2019-12-18] MEDS: Ibuprofen 600 MG TAB PO PRN (17:52)
[2019-12-18] MEDS: Acetaminophen 500 MG TAB PO PRN (17:52)
[2019-12-18] MEDS: Mometasone/Formoterol 120 PUFF INHALER INH SCH (20:58)
[2019-12-18] MEDS: Enoxaparin Sodium 40 MG/0.4 ML SYRINGE SC SCH (21:31)
[2019-12-18] MEDS: Amitriptyline HCl 25 MG TAB PO SCH (21:31)
[2019-12-18] MEDS: Rosuvastatin 20 MG TAB PO SCH (21:31)
[2019-12-18] MEDS: tiZANidine HCl 4 MG TAB PO SCH (21:31)
[2019-12-19] MEDS: Acetaminophen 500 MG TAB PO PRN ×3 (00:04→23:05)
[2019-12-19] MEDS: Ibuprofen 600 MG TAB PO PRN ×4 (00:05→23:06)
[2019-12-19] MEDS: HYDROcodone/Acetaminophen 5/325 mg Tablet PO PRN ×4 (04:03→20:46)
[2019-12-19 05:27] LABS: #Eosinphils 0.1 thou/uL (0.0-0.7); #Monocytes 0.3 thou/uL (0.11-0.59); #Neutrophils 3.7 thou/uL (1.40-6.50); %Basophils 0.3 % (0.0-1.0); %Eosinophils 2.1 % (0.0-10.0); %Lymphocytes 32.6 % (21.0-51.0); %Monocytes 4.8 % (0.0-10.0); %Neutrophils 60.1 % (42.0-75.0); Hemoglobin 10.1 g/dL (14.0-18.0); Mean Corpuscular HGB CONC 33.5 g/dL (32.0-36.0); Mean Corpuscular Volume 95.5 fL (78.0-98.0); Mean Platelet Volume 8.1 fL (7.4-10.4); Platelet Count 130 thou/uL (130-400); RBC Distribution Width 15.4 % (11.5-14.5); Red Blood Cell (RBC) Count 3.14 mill/uL (4.70-6.10); White Blood Cell (WBC) Count 6.2 thou/uL (4.8-10.8)
[2019-12-19] MEDS: Mometasone/Formoterol 120 PUFF INHALER INH SCH ×2 (06:44→18:16)
[2019-12-19] MEDS: traMADol HCl 50 MG TAB PO PRN ×3 (06:51→23:06)
[2019-12-19] MEDS: tiZANidine HCl 4 MG TAB PO SCH ×2 (08:40→20:47)
[2019-12-19] MEDS: Metoprolol Tartrate 25 MG TAB PO SCH (08:40)
[2019-12-19] MEDS: Gabapentin 300 MG CAP PO SCH ×3 (08:40→20:47)
[2019-12-19] MEDS: Clopidogrel Bisulfate 75 MG TAB PO SCH (08:41)
[2019-12-19] MEDS: Polyethylene Glycol 3350 17 GM Packet PO SCH (08:42)
[2019-12-19] MEDS: Venlafaxine HCl XR 150 MG CAP PO SCH ×2 (08:42→09:17)
--- NOTE | 2019-12-19 11:01 | PRG ---
DATE OF SERVICE: 12/19/2019 SUBJECTIVE: Remy Case is doing well after right below-knee amputation yesterday. OBJECTIVE: VITAL SIGNS: 98.7 degrees, heart rate 95, 150/73. White count 6, hemoglobin 10.1. Basic metabolic profile not rechecked today. EXTREMITIES: Dressings are dry. He has good knee extension. LUNGS: Clear to auscultation. CARDIAC: Regular rate and rhythm without murmur or gallop. ABDOMEN: Soft, nontender. ASSESSMENT AND PLAN: The patient is doing well. I will plan to remove his dressing tomorrow and I will ask [facility] to place a stump events assistant tomorrow. They will begin washing the stump with soap and water daily and place antibiotic ointment with Telfa and stump events assistant. The patient is ready for transfer to rehab or a long term facility tomorrow. Overall is doing well. Job ID: [id number]
[2019-12-19] MEDS: Amitriptyline HCl 25 MG TAB PO SCH (20:47)
[2019-12-19] MEDS: Rosuvastatin 20 MG TAB PO SCH (20:47)
[2019-12-19] MEDS: Enoxaparin Sodium 40 MG/0.4 ML SYRINGE SC SCH (20:50)
[2019-12-19] MEDS: Ondansetron PF 4 MG/2 ML Vial IVP PRN (20:55)
[2019-12-20] MEDS: HYDROcodone/Acetaminophen 5/325 mg Tablet PO PRN ×3 (01:16→16:03)
[2019-12-20] MEDS: Ondansetron PF 4 MG/2 ML Vial IVP PRN (05:10)
[2019-12-20] MEDS: traMADol HCl 50 MG TAB PO PRN ×2 (05:13→13:06)
[2019-12-20] MEDS: Acetaminophen 500 MG TAB PO PRN ×2 (05:14→13:02)
[2019-12-20] MEDS: Ibuprofen 600 MG TAB PO PRN ×2 (05:15→13:02)
[2019-12-20] MEDS: Mometasone/Formoterol 120 PUFF INHALER INH SCH ×2 (07:15→18:09)
[2019-12-20] MEDS: Venlafaxine HCl XR 150 MG CAP PO SCH ×2 (09:42→09:43)
[2019-12-20] MEDS: Clopidogrel Bisulfate 75 MG TAB PO SCH (09:43)
[2019-12-20] MEDS: tiZANidine HCl 4 MG TAB PO SCH (09:43)
[2019-12-20] MEDS: Gabapentin 300 MG CAP PO SCH ×2 (09:43→14:33)
[2019-12-20] MEDS: Polyethylene Glycol 3350 17 GM Packet PO SCH (09:44)
[2019-12-20] MEDS: Metoprolol Tartrate 25 MG TAB PO SCH (09:44)
[2019-12-20] MEDS ORDERED: Triple Antibiotic Oint 1 GM Packet TOP PRN (11:50)
--- NOTE | 2019-12-20 15:10 | PRG ---
DATE OF SERVICE: 12/20/2019 Remy Case is doing well today. His BKA stump looks healthy. He is maintaining extension, he is educated. He is able to flex and extend it. His pain is under good control. Overall, the patient can be discharged home today and he will transfer to rehab today. I will see him in the office in 2 to 3 weeks for staple removal. Job ID: [id number]
[2019-12-20 15:17] VITALS: BP 116/72; TEMP 98.1
--- NOTE | 2019-12-21 02:46 | DIS ---
DATE OF ADMISSION: 12/18/2019 DATE OF DISCHARGE: 12/20/2019 DISCHARGE DIAGNOSES: 1. Peripheral arterial disease with non-reconstructible or salvageable vascular disease and ischemic rest pain foot. Dr. 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 2. History of tobacco abuse, continued. 3. History of bilateral carotid endarterectomies. 4. History of transurethral resection of the prostate. 5. History of urolithiasis. 6. History of cervical spine decompression in 2005. 7. 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 8. Incisional hernia repair with mesh, 1992. 9. 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 HISTORY OF PRESENT ILLNESS: A 74-year-old male patient had a trial of intervention, which was not successful, has continued rest pain and is admitted for amputation, which he underwent date of admission and kept postoperatively. Postoperatively, he was counseled on tobacco cessation. He is discharged home to resume his home medications and he is to followup in my office in 2 to 3 weeks. He is discharged home to assisted care facility. He will wash the stump daily with soap and water and place antibiotic ointment, Telfa and a stump cocktail waitress. He will avoid excessive pressure on his left heel to prevent decubitus. He should work on keeping his right knee in extension to prevent contracture to prepare his stump for a prosthesis in the future. Job ID: [id number]
--- NOTE | 2019-12-21 08:17 | EKG ---
Test Reason : PREOP Blood Pressure : / mmHG Vent. Rate : 087 BPM Atrial Rate : 087 BPM P-R Int : 140 ms QRS Dur : 090 ms QT Int : 374 ms P-R-T Axes : 039 -01 058 degrees QTc Int : 450 ms Normal sinus rhythm Moderate voltage criteria for LVH, may be normal variant Nonspecific ST abnormality Abnormal ECG When compared with ECG of 10-AUG-2018 15:55, No significant change was found Confirmed by DR. Lakshmi GUILLEN ([id number]) on 12/21/2019 8:17:10 AM Referred By: RONNI Confirmed By:DR. Lakshmi GUILLEN
--- NOTE | 2019-12-22 07:28 | PQF ---
LILLIAN STANLEY RICHARD D MD [id number] [place] [id number] CLINICAL DOCUMENTATION CLARIFICATION FORM: POST DISCHARGE Addendum to original discharge summary date: ____ Late entry note date: __ DATE: 12/22/2019 ATTN: Everton Somers Please exercise your independent, professional judgment in responding to the clarification form. Clinical indicators are provided on the bottom of this form for your review Final Diagnosis on the Pathology report: Ulcer with Necrosis of Right foot Clarification of Pathology report: Please check appropriate box(s): [ ] Agree w the pathology finding of: Ulcer with Necrosis of Right foot [ ] Other explanation of pathology findings (please specify) [ ] Other diagnosis [ ] Unable to determine For continuity of documentation, please document condition throughout progress notes and discharge summary. Thank You. CLINICAL INDICATORS - SIGNS/ SYMPTOMS / LABS Pathology report p1 12/17 Diagnosis: Ulcer with Necrosis. Calcific Atherosclerosis. Pathology report p1 12/17 There are multiple purplish black gangrenous areas H&P p1 3/2 Dr Farris Pt with ischemic rest pain in right foot. H&P p1 3/2 Dr Farris He was noted to have some [id number] diseases in his calcified iliac system, but had a R SFA stenosis, undergoing COLLEGE RECRUITER RISK FACTORS H&P p1 3/2 74 year-old male H&P p1 3/2 PAD H&P p1 3/2 Tobacco pack per day H&P p1 3/2 CAD H&P p2 3/2 Arteriosclerotic disease with rest pain in right foot and non- healing TREATMENTS MAR 32 Tylenol 500mg po DEC 3 [place] 5/325 2tab po DEC 18 Ancef 2gm IV DEC 18 Motrin 600mg po Right BKA by Everton Somers 3/2 (This form is maintained as a part of the permanent medical record) 2015 [employer] All Rights Reserved [email or web address]
== END 2019-12-20 18:12 | DRG 241 ==
LOC: SDC 06:03 → SJJU 09:02
PROVIDERS: ADMIT Specialist; ATTEND Specialist
PROC: 0Y6H0Z1 Detachment at Right Lower Leg, High, Open Approach (ICD-10-PCS; principal; 2019-12-18)
DX: I70.221 Atherosclerosis of native arteries of extremities with rest pain, right leg (principal); F17.200 Nicotine dependence, unspecified, uncomplicated; I25.10 Atherosclerotic heart disease of native coronary artery without angina pectoris; Z95.1 Presence of aortocoronary bypass graft; I25.2 Old myocardial infarction; Z79.899 Other long term (current) drug therapy; Z90.79 Acquired absence of other genital organ(s); Z87.442 Personal history of urinary calculi
CPT/HCPCS: 36415; 80048; 85025; 88307; 88311; 93005; 93010; 94640; J0360; J0670; J0690; J1650; J1885; J2250; J2370; J2405; J2704; J3010; J7620; L8440